=== PATIENT | male | born 1960 | race Caucasian/White ===

== ENCOUNTER → 2022-06-01 | Outpatient (CLI) | payer MEDICAID ==
--- NOTE | 2022-06-01 13:52 | CT ---
EXAMINATION TYPE: CT abdomen pelvis w con DATE OF EXAM: 06/01/2022 COMPARISON: None HISTORY: Hepatomegaly CT DLP: 1805 mGycm Automated exposure control for dose reduction was used. TECHNIQUE: Helical acquisition of images was performed from the lung bases through the pelvis. CONTRAST: Performed with Oral Contrast and with IV Contrast, patient injected with 70ml mL of Isovue 300. FINDINGS: The lung bases are clear. There is a moderate diffuse fatty liver but no gross enlargement or focal liver mass. There is a gallstone but there is no gallbladder wall distention, wall thickening or pericholecystic fluid. There is no biliary ductal dilatation. There is no focal mass within the spleen, pancreas or adrenal glands. The kidneys excrete contrast promptly and symmetrically and there is no solid renal mass or hydroneph rosis. There are no renal calcifications. Abdominal aorta is normal and there is no retroperitoneal adenopathy or hemorrhage. The caliber of the bowel loops are normal in caliber and there is no dilatation or obstruction. No in flammatory changes are identified in the bowel wall or mesentery. There is no free intraperitoneal air or fluid. There is no pelvic mass, free fluid, abscess or adenopathy. The prostate gland is mildly prominent. There are no focal lytic or blastic bone abnormalities. IMPRESSION: 1. Moderate diffuse fatty liver without gross enlargement. 2. Single small gallstone.
== END | disposition home or self-care (01) ==
LOC: RADCTMAIN 11:26
PROVIDERS: ATTEND Family Medicine
DX: R16.0 Hepatomegaly, not elsewhere classified (principal); K76.0 Fatty (change of) liver, not elsewhere classified; K80.20 Calculus of gallbladder without cholecystitis without obstruction
CPT/HCPCS: 74177; Q9967

== ENCOUNTER 2022-06-18 14:35 | Inpatient (IN) | payer MEDICAID ==
[2022-06-18 15:17] LABS: Basophils % (A) 0 %; Eosinophils # (A) 0.2 k/uL (0-0.7); Eosinophils % (A) 2 %; HCT 36.2 % (39.0-53.0); HGB 12.8 gm/dL (13.0-17.5); Lymphocytes # (A) 0.9 k/uL (1.0-4.8); Lymphocytes % (A) 7 %; MCH 34.9 pg (25.0-35.0); MCHC 35.3 g/dL (31.0-37.0); Mean Platelet Volume 8.2; Monocytes # (A) 0.7 k/uL (0-1.0); Monocytes % (A) 5 %; Neutrophils # (A) 10.3 k/uL (1.3-7.7); Neutrophils % (A) 85 %; Platelet Count 310 k/uL (150-450); Poikilocytosis Slight; RBC 3.66 m/uL (4.30-5.90); RDW 13.2 % (11.5-15.5); WBC 12.2 k/uL (3.8-10.6)
[2022-06-18 15:25] LABS: INR 0.9 (<1.2); Partial Thromboplastin Time 24.6 sec (22.0-30.0); Prothrombin Time 9.6 sec (9.0-12.0)
[2022-06-18 15:27] LABS: ALT 66 U/L (4-49); AST 41 U/L (17-59); African American GFR (CKD) >90 (>60 ml/min/1.73 sqM); Albumin 3.3 g/dL (3.5-5.0); Alkaline Phosphatase 176 U/L (38-126); Amylase 55 U/L (30-110); Anion Gap 9 mmol/L; Blood Urea Nitrogen 12 mg/dL (9-20); Calcium 10.1 mg/dL (8.4-10.2); Carbon Dioxide 25 mmol/L (22-30); Chloride 97 mmol/L (98-107); Glucose 104 mg/dL (74-99); Lipase 81 U/L (23-300); Non-African American GFR(CKD) >90 (>60 ml/min/1.73 sqM); Potassium 3.6 mmol/L (3.5-5.1); Sodium 131 mmol/L (137-145); Total Bilirubin 3.9 mg/dL (0.2-1.3); Total Protein 5.9 g/dL (6.3-8.2)
[2022-06-18] MEDS ORDERED: PIPERACILLIN-TAZOBACTAM 3.375 GM in SODIUM CHLORIDE 0.9% 100 ML IVPB STA (19:28)
[2022-06-18] MEDS ORDERED: SODIUM CHLORIDE 0.9% 1,000 ML IV ONE (19:28)
--- NOTE | 2022-06-18 19:31 | ED ---
Abdominal Pain HPI - General Chief Complaint: Abdominal Pain Stated Complaint: Liver Disease,Abd Pain,Shaky Time Seen by Provider: 06/18/22 19:20 Source: patient, RN notes reviewed Mode of arrival: ambulatory Limitations: no limitations - History of Present Illness Initial Comments: This is a pleasant 61-year-old male who presents with parents back complaining of right upper quadrant abdominal pain which is been present for about 1 week. Patient states he started having problems on May 20 when he noticed he was jaundice. Head previous liver problems related to drinking alcohol. Patient states he also used to use illegal drugs many years ago which caused liver problems. Patient states he started drinking again but then stopped and saw his regular physician. Patient also saw Dr. Sorenson, the automotive design layout drafter and had a computed tomography scan done in early May. Patient states after quitting drinking and going over the CT results with the doctor he was feeling great. However right upper quadrant pain started occurring about one week ago. States it likely is exacerbated by eating. No nausea or vomiting. No known fever. Patient was found to have a fever in triage. No headache, some chills, no changes in vision or hearing, no sore throat or difficulty with speech, no neck pain, no chest pain or shortness of breath,, no nausea or vomiting, no changes in urination or bowel movements, no numbness or tingling, no extremity pain, no skin rashes or lesions. Cats positive for jaundice Past medical, surgical, social, and family history reviewed. - Related Data Allergies Allergy/AdvReac Type Severity Reaction Status Date / Time No Known Allergies Allergy Verified 06/18/22 15:00 Review of Systems ROS Statement: Those systems with pertinent positive or pertinent negative responses have been documented in the HPI. ROS Other: All systems not noted in ROS Statement are negative. Past Medical History Past Medical History: Atrial Fibrillation, Asthma Additional Past Medical History / Comment(s): Liver disease History of Any Multi-Drug Resistant Organisms: None Reported Past Surgical History: No Surgical Hx Reported Past Psychological History: No Psychological Hx Reported Smoking Status: Never smoker Past Alcohol Use History: Daily Past Drug Use History: None Reported General Exam - General Exam Comments Initial Comments: Well-developed, well-nourished male in no significant distress. Found to be febrile in triage. Tenderness in the right upper quadrant, systemic jaundice noted. Limitations: no limitations General appearance: alert, in no apparent distress Head exam: Present: atraumatic, normocephalic, normal inspection Eye exam: Present: normal appearance, PERRL, EOMI, scleral icterus. Absent: conjunctival injection, periorbital swelling ENT exam: Present: normal exam, mucous membranes moist Neck exam: Present: normal inspection. Absent: tenderness, meningismus, lymphadenopathy Respiratory exam: Present: normal lung sounds bilaterally. Absent: respiratory distress, wheezes, rales, rhonchi, stridor Cardiovascular Exam: Present: regular rate, normal rhythm, normal heart sounds. Absent: systolic murmur, diastolic murmur, rubs, gallop, clicks GI/Abdominal exam: Present: distended, tenderness, guarding, normal bowel sounds. Absent: rebound, rigid Extremities exam: Present: normal inspection, full ROM, normal capillary refill. Absent: tenderness, pedal edema, joint swelling, calf tenderness Back exam: Present: normal inspection Neurological exam: Present: alert, oriented X3, CN II-XII intact Psychiatric exam: Present: normal affect, normal mood Skin exam: Present: warm, dry, intact, normal color. Absent: rash Course Vital Signs 06/18/22 06/18/22 14:57 20:18 Temperature 100 F H 97.8 F Pulse Rate 102 H 103 H Respiratory 22 16 Rate Blood Pressure 125/79 132/84 O2 Sat by Pulse 97 96 Oximetry - Reevaluation(s) Reevaluation #1: 06/18/22 20:31 Medical record is reviewed Symptoms unchanged, patient has right upper quadrant abdominal pain. We will order pain medication and admit the patient due to bilirubin of 3.9 and evidence of cholecystitis. Patient is informed of results and questions answered Patient in no distress - Consultations Consultation #1: Case discussed in detail with Dr. ferro from [facility] hospitalist group. Patient admitted to that service. Medical Decision Making - Medical Decision Making Any symptomology consistent with infectious process, suspect cholecystitis or possibly ascending cholangitis. 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 Patient has no evidence of hypotension or altered mental status. Patient did have an elevated white blood cell count with a bilirubin of 3.9. Going to order antibiotics and blood cultures. Ultrasound ordered. Plan for admission. Patient will be admitted for acute cholecystitis, most likely ascending cholangitis. Patient received Zosyn 3.375 g IV piggyback here in the ER. Patient met sepsis criteria. Patient reveals capillary refill less than 2 seconds. Adequate color. Peripheral pulses are 2+ out of 4. The case was discussed in detail with ED attending physician. Presentation, findings, treatment plan discussed in detail. Car Wrecker, Dr. Rolle - Lab Data Result diagrams: 06/18/22 15:10 06/18/22 15:10 Lab Results 06/18/22 06/18/22 06/18/22 Range/Units 15:10 15:10 15:10 WBC 12.2 H (3.8-10.6) k/uL RBC 3.66 L (4.30-5.90) m/uL Hgb 12.8 L (13.0-17.5) gm/dL Hct 36.2 L (39.0-53.0) % MCV 99.0 (80.0-100.0) fL MCH 34.9 (25.0-35.0) pg MCHC 35.3 (31.0-37.0) g/dL RDW 13.2 (11.5-15.5) % Plt Count 310 (150-450) k/uL MPV 8.2 Neutrophils % 85 % Lymphocytes % 7 % Monocytes % 5 % Eosinophils % 2 % Basophils % 0 % Neutrophils # 10.3 H (1.3-7.7) k/uL Lymphocytes # 0.9 L (1.0-4.8) k/uL Monocytes # 0.7 (0-1.0) k/uL Eosinophils # 0.2 (0-0.7) k/uL Basophils # 0.0 (0-0.2) k/uL Poikilocytosis Slight PT 9.6 (9.0-12.0) sec INR 0.9 (<1.2) APTT 24.6 (22.0-30.0) sec Sodium 131 L (137-145) mmol/L Potassium 3.6 (3.5-5.1) mmol/L Chloride 97 L (98-107) mmol/L Carbon Dioxide 25 (22-30) mmol/L Anion Gap 9 mmol/L BUN 12 (9-20) mg/dL Creatinine 0.81 (0.66-1.25) mg/dL Est GFR (CKD-EPI)AfAm >90 (>60 ml/min/1.73 sqM) Est GFR (CKD-EPI)NonAf >90 (>60 ml/min/1.73 sqM) Glucose 104 H (74-99) mg/dL Calcium 10.1 (8.4-10.2) mg/dL Total Bilirubin 3.9 H (0.2-1.3) mg/dL AST 41 (17-59) U/L ALT 66 H (4-49) U/L Alkaline Phosphatase 176 H (38-126) U/L Troponin I (0.000-0.034) ng/mL Total Protein 5.9 L (6.3-8.2) g/dL Albumin 3.3 L (3.5-5.0) g/dL Amylase 55 (30-110) U/L Lipase 81 (23-300) U/L 06/18/22 Range/Units 15:10 WBC (3.8-10.6) k/uL RBC (4.30-5.90) m/uL Hgb (13.0-17.5) gm/dL Hct (39.0-53.0) % MCV (80.0-100.0) fL MCH (25.0-35.0) pg MCHC (31.0-37.0) g/dL RDW (11.5-15.5) % Plt Count (150-450) k/uL MPV Neutrophils % % Lymphocytes % % Monocytes % % Eosinophils % % Basophils % % Neutrophils # (1.3-7.7) k/uL Lymphocytes # (1.0-4.8) k/uL Monocytes # (0-1.0) k/uL Eosinophils # (0-0.7) k/uL Basophils # (0-0.2) k/uL Poikilocytosis PT (9.0-12.0) sec INR (<1.2) APTT (22.0-30.0) sec Sodium (137-145) mmol/L Potassium (3.5-5.1) mmol/L Chloride (98-107) mmol/L Carbon Dioxide (22-30) mmol/L Anion Gap mmol/L BUN (9-20) mg/dL Creatinine (0.66-1.25) mg/dL Est GFR (CKD-EPI)AfAm (>60 ml/min/1.73 sqM) Est GFR (CKD-EPI)NonAf (>60 ml/min/1.73 sqM) Glucose (74-99) mg/dL Calcium (8.4-10.2) mg/dL Total Bilirubin (0.2-1.3) mg/dL AST (17-59) U/L ALT (4-49) U/L Alkaline Phosphatase (38-126) U/L Troponin I <0.012 (0.000-0.034) ng/mL Total Protein (6.3-8.2) g/dL Albumin (3.5-5.0) g/dL Amylase (30-110) U/L Lipase (23-300) U/L - EKG Data -: EKG Interpreted by Me EKG Comments: EKG done at 2101 and read by the ED attending physician reveals sinus tachycardia with occasional PVCs. Left axis deviationborderline, no acute ST or T-wave changes. Normal intervals. Disposition Clinical Impression: Ascending cholangitis, Acute cholecystitis due to biliary calculus, Sepsis Disposition: ADMITTED IP TO THIS HOSP Condition: Fair Is patient prescribed a controlled substance at d/c from ED?: No Referrals: Parminder Ross MD [Primary Care Provider] - 1-2 days Time of Disposition: 20:33 Decision to Admit Reason: Admit from EC Decision Time: 20:33
--- NOTE | 2022-06-18 20:12 | US ---
EXAMINATION TYPE: US gallbladder DATE OF EXAM: 06/18/2022 COMPARISON: CT: 06/01/22 CLINICAL HISTORY: Right upper quadrant abdominal pain. RUQ pain TECHNIQUE: Multiple sonographic images of the right upper quadrant are obtained. FINDINGS: EXAM MEASUREMENTS: Liver Length: 19.2 cm Gallbladder Wall: 0.25 cm CBD: 0.69 cm Right Kidney: 11.8 x 5.8 x 6.2 cm SUPERVISORY EXAMINER NOTES: Pancreas: Obscured by bowel gas Liver: Increased attenuation, decreased visualization of vessels suggestive of fatty infiltrate Gallbladder: Small stone seen near neck of GB measuring 1.0cm, sludge visualized, pericholecystic fl uid visualized, hydropic GB Evidence for sonographic Marin's sign: Yes CBD: Dilated, but limited due to bowel gas Right Kidney: wnl IMPRESSION: There is a gallstone. Mild gallbladder wall thickening and pericholecystic fluid suggestive of acute and chronic cholecystitis. Dilated gallbladder.
[2022-06-18] MEDS ORDERED: ONDANSETRON 4 MG/2 ML VIAL IVP STA (20:50)
[2022-06-18] MEDS ORDERED: MORPHINE SULFATE 4 MG/ML SYRINGE IV STA (20:50)
[2022-06-18] MEDS: SODIUM CHLORIDE 0.9% 1,000 ML IV SCH (21:07)
[2022-06-19] MEDS: MORPHINE SULFATE 4 MG/ML SYRINGE IVP PRN ×4 (02:36→21:34)
[2022-06-19] MEDS: PIPERACILLIN-TAZOBACTAM 3.375 GM in SODIUM CHLORIDE 0.9% 100 ML IVPB SCH ×3 (04:05→21:18)
[2022-06-19] MEDS: SODIUM CHLORIDE 0.9% 1,000 ML IV SCH ×4 (05:58→21:34)
[2022-06-19] MEDS ORDERED: XARELTO PO SCH (08:30)
[2022-06-19 09:22] LABS: Basophils % (A) 0 %; Eosinophils # (A) 0.1 k/uL (0-0.7); Eosinophils % (A) 1 %; HCT 33.6 % (39.0-53.0); HGB 11.7 gm/dL (13.0-17.5); Lymphocytes # (A) 0.9 k/uL (1.0-4.8); Lymphocytes % (A) 8 %; MCH 35.2 pg (25.0-35.0); MCHC 34.8 g/dL (31.0-37.0); MCV 101.3 fL (80.0-100.0); Mean Platelet Volume 7.9; Monocytes # (A) 0.7 k/uL (0-1.0); Monocytes % (A) 6 %; Neutrophils # (A) 9.2 k/uL (1.3-7.7); Neutrophils % (A) 83 %; Platelet Count 327 k/uL (150-450); Poikilocytosis Slight; RBC 3.32 m/uL (4.30-5.90); RDW 13.3 % (11.5-15.5)
[2022-06-19 09:31] LABS: ALT 51 U/L (4-49); AST 36 U/L (17-59); African American GFR (CKD) >90 (>60 ml/min/1.73 sqM); Albumin/Globulin Ratio 1.3; Alkaline Phosphatase 140 U/L (38-126); Anion Gap 8 mmol/L; Blood Urea Nitrogen 12 mg/dL (9-20); Carbon Dioxide 25 mmol/L (22-30); Chloride 100 mmol/L (98-107); Globulin 2.4 g/dL; Glucose 93 mg/dL (74-99); Non-African American GFR(CKD) >90 (>60 ml/min/1.73 sqM); Potassium 3.7 mmol/L (3.5-5.1); Sodium 133 mmol/L (137-145); Total Bilirubin 3.5 mg/dL (0.2-1.3); Total Protein 5.4 g/dL (6.3-8.2)
[2022-06-19] MEDS: carvediloL 12.5 MG TAB PO SCH ×2 (10:25→17:33)
[2022-06-19] MEDS: MULTIVITAMINS, THERA 1 EACH TAB PO SCH (10:25)
--- NOTE | 2022-06-19 11:12 | P.GSCN ---
History of Present Illness Consult date: 06/19/22 History of present illness: CHIEF COMPLAINT: Abdominal pain HISTORY OF PRESENT ILLNESS: This is a 61-year-old male who presented to the hospital with complaint of right upper quadrant abdominal pain since last . Patient reports that the pain started after he drank a cup of coffee. He denies any nausea or vomiting. He does have a known history of liver cirr hosis, with history of alcohol use and substance abuse with cocaine, heroin and meth. Patient reports earlier in May he was seen by the GI service due to being jaundice and liver failure. He patient reports that he had a total bilirubin of 15 at that time. He had a computed tomography scan of the abdomen on 06/01/2022 showing moderate diffuse fatty liver without gross enlargement. Single small gallstone. Gallbladder ultrasound from yesterday shows gallstone. Mild gallbladder wall thickening and pericholecystic fluids just of acute and chronic cholecystitis. Dilated gallbladder. Patient does have elevated liver enzymes and total bilirubin of 3.9. He did have a fever on admission with tachycardia and elevated white count. Patient does report his urine is dark. Stools are normal. Patient's past surgical history includes a umbilical hernia repair with mesh. He is on Xarelto with history of A. fib and PE 2 with DVT. Patient seen and examined with Dr. nelson PAST MEDICAL HISTORY: Liver cirrhosis, atrial fibrillation, asthma PAST SURGICAL HISTORY: Umbilical hernia repair with mesh MEDICATIONS: See below ALLERGIES: See below SOCIAL HISTORY: Past history of cocaine, heroin and meth. Patient reports 2 years since he last used drugs. Patient reports he drinks 8 beers a day. Stop drinking 05/20/2022 REVIEW OF SYSTEMS: CONSTITUTIONAL: Denies fever or chills. HEENT: Denies blurred vision, vision changes, or eye pain. Denies hemoptysis CARDIOVASCULAR: Denies chest pain or pressure. RESPIRATORY: No shortness of breath. GASTROINTESTINAL: See HPI for pertinent findings HEMATOLOGIC: Denies bleeding disorders. GENITOURINARY: Denies any blood in urine or increased urinary frequency. SKIN: Denies pruitis. Denies rash. PHYSICAL EXAM: VITAL SIGNS: Reviewed GENERAL: Well-developed in no acute distress. HEENT: No sclera icterus. Extraocular movements grossly intact. Moist buccal mucosa. Head is atraumatic, normocephalic. No nasal drainage. ABDOMEN: Soft. Mildly distended. Patient has diffuse tenderness but more pain in the right upper quadrant NEUROLOGIC: Alert and oriented. Cranial nerves II through XII grossly intact. Tremor LABORATORY DATA: WBC 12.2 down to 11 hgb 11.7 platelets 327 sodium is 133 potassium 3.7 BUN 12 creatinine 0.77 Total bilirubin 3.90-3.5 AST 36 ALT 66-51 alk phos 176-140 Lipase 81 amylase 55 IMAGING: Gallbladder ultrasound there is a small gallstone in the neck gallbladder, sludge visualized, pericholecystic fluid, hydropic gallbladder. Positive Marin sign. CBD dilated. ASSESSMENT: 1. Chronic cholecystitis 2. Elevated LFTs and total bilirubin. Concerns for possible choledocholithiasis 3. Right upper quadrant abdominal pain 4. History of alcohol abuse 5. History of liver cirrhosis PLAN: -Patient scheduled for laparoscopic cholecystectomy on 06/22/[address] nelson -Start low-fat diet -MRCP ordered to rule out common bile duct stone -Await further GI workup and recommendations -Agree with adding the CIWA protocol for alcohol -Continue antibiotics -Continue IV fluids -Continue supportive care Physician Script Coordinator note has been reviewed by physician. Signing provider agrees with the documented findings, assessment, and plan of care. Past Medical History Past Medical History: Atrial Fibrillation, Asthma Additional Past Medical History / Comment(s): Liver disease History of Any Multi-Drug Resistant Organisms: None Reported Past Surgical History: No Surgical Hx Reported Past Anesthesia/Blood Transfusion Reactions: No Reported Reaction Past Psychological History: No Psychological Hx Reported Smoking Status: Never smoker Past Alcohol Use History: Daily Past Drug Use History: None Reported Medications and Allergies Home Medications Medication Instructions Recorded Confirmed Type Multivitamins, Thera [Multivitamin 2 tab PO DAILY 06/18/22 06/18/22 History (formulary)] Rivaroxaban [Xarelto] 20 mg PO [id number] 06/19/22 06/19/22 History carvediloL [Coreg] 12.5 mg PO BID 06/19/22 06/19/22 History Allergies Allergy/AdvReac Type Severity Reaction Status Date / Time No Known Allergies Allergy Verified 06/18/22 21:10 Surgical - Exam Vital Signs Temp Pulse Resp BP Pulse Ox 100 F H 102 H 22 125/79 97 06/18/22 14:57 06/18/22 14:57 06/18/22 14:57 06/18/22 14:57 06/18/22 14:57 Results - Labs 06/19/22 08:47 06/19/22 08:47 Abnormal Lab Results - Last 24 Hours (Table) 06/18/22 06/18/22 Range/Units 15:10 15:10 WBC 12.2 H (3.8-10.6) k/uL RBC 3.66 L (4.30-5.90) m/uL Hgb 12.8 L (13.0-17.5) gm/dL Hct 36.2 L (39.0-53.0) % Neutrophils # 10.3 H (1.3-7.7) k/uL Lymphocytes # 0.9 L (1.0-4.8) k/uL Sodium 131 L (137-145) mmol/L Chloride 97 L (98-107) mmol/L Glucose 104 H (74-99) mg/dL Total Bilirubin 3.9 H (0.2-1.3) mg/dL ALT 66 H (4-49) U/L Alkaline Phosphatase 176 H (38-126) U/L Total Protein 5.9 L (6.3-8.2) g/dL Albumin 3.3 L (3.5-5.0) g/dL Diabetes panel 06/18/22 Range/Units 15:10 Sodium 131 L (137-145) mmol/L Potassium 3.6 (3.5-5.1) mmol/L Chloride 97 L (98-107) mmol/L Carbon Dioxide 25 (22-30) mmol/L BUN 12 (9-20) mg/dL Creatinine 0.81 (0.66-1.25) mg/dL Glucose 104 H (74-99) mg/dL Calcium 10.1 (8.4-10.2) mg/dL AST 41 (17-59) U/L ALT 66 H (4-49) U/L Alkaline Phosphatase 176 H (38-126) U/L Total Protein 5.9 L (6.3-8.2) g/dL Albumin 3.3 L (3.5-5.0) g/dL Calcium panel 06/18/22 Range/Units 15:10 Calcium 10.1 (8.4-10.2) mg/dL Albumin 3.3 L (3.5-5.0) g/dL Pituitary panel 06/18/22 Range/Units 15:10 Sodium 131 L (137-145) mmol/L Potassium 3.6 (3.5-5.1) mmol/L Chloride 97 L (98-107) mmol/L Carbon Dioxide 25 (22-30) mmol/L BUN 12 (9-20) mg/dL Creatinine 0.81 (0.66-1.25) mg/dL Glucose 104 H (74-99) mg/dL Calcium 10.1 (8.4-10.2) mg/dL Adrenal panel 06/18/22 Range/Units 15:10 Sodium 131 L (137-145) mmol/L Potassium 3.6 (3.5-5.1) mmol/L Chloride 97 L (98-107) mmol/L Carbon Dioxide 25 (22-30) mmol/L BUN 12 (9-20) mg/dL Creatinine 0.81 (0.66-1.25) mg/dL Glucose 104 H (74-99) mg/dL Calcium 10.1 (8.4-10.2) mg/dL Total Bilirubin 3.9 H (0.2-1.3) mg/dL AST 41 (17-59) U/L ALT 66 H (4-49) U/L Alkaline Phosphatase 176 H (38-126) U/L Total Protein 5.9 L (6.3-8.2) g/dL Albumin 3.3 L (3.5-5.0) g/dL
--- NOTE | 2022-06-19 11:34 | P.HPIM ---
History of Present Illness This is a pleasant 61 years old male with past medical history of atrial fibrillation on xarelto , asthma. Presents with right upper quadrant abdominal pain for a few days and jaundice for about one month, he was following up with his PCP for his liver disease for about one month ago. Now he presents with worsening pain in the right upper abdomen about 8-9/10 in severity, nonradiating. Associated with nausea which is mild but no vomiting, no diarrhea. Patient also was complaining of from the distal headache and lightheadedness but no dizziness or weakness or numbness. No blurred vision. No chest pain he he feels little short of breath and cough and make his pain worse. He denies any urinary symptoms. He is a smoker. He quit drinking alcohol about one month ago when he developed his liver disease and jaundice. Also he stopped cocaine and methamphetamine and heroin about 2 years and a half ago Patient has low-grade fever of 100 on admission. Mild leukocytosis of about 12,000, hemoglobin 11.7. Gallbladder ultrasound showing gallstones with mild gallbladder wall thickening and pericholecystic fluid suggestive of acute on chronic cholecystitis with dilated gallbladder Patient had CT of the abdomen done about the last month month ago on 06/01 showing moderate fatty liver without enlargement and single gallstone pt is also reports some blood in his urine and stool and last dose of xarelto was 3 days ago , and he wants to keep holding it for now, risk and benefits are explained Review of Systems Review of systems CONSTITUTIONAL: No fever, no malaise, no fatigue. HEENT: No recent visual problems or hearing problems. Denied any sore throat. CARDIOVASCULAR: No orthopnea, PND, no palpitations, no syncope. PULMONARY: No shortness of breath, no cough, no hemoptysis. GASTROINTESTINAL: No diarrhea, no vomiting, Normoactive bowel sounds. NEUROLOGICAL: No headaches, no weakness, no numbness. HEMATOLOGICAL: Denies any bleeding or petechiae. GENITOURINARY: Denies any burning micturition, frequency, or urgency. MUSCULOSKELETAL/RHEUMATOLOGICAL: Denies any joint pain, swelling, or any muscle pain. ENDOCRINE: Denies any polyuria or polydipsia. Past Medical History Past Medical History: Atrial Fibrillation, Asthma Additional Past Medical History / Comment(s): Liver disease History of Any Multi-Drug Resistant Organisms: None Reported Past Surgical History: No Surgical Hx Reported Past Anesthesia/Blood Transfusion Reactions: No Reported Reaction Past Psychological History: No Psychological Hx Reported Smoking Status: Never smoker Past Alcohol Use History: Daily Past Drug Use History: None Reported Medications and Allergies Home Medications Medication Instructions Recorded Confirmed Type Multivitamins, Thera [Multivitamin 2 tab PO DAILY 06/18/22 06/18/22 History (formulary)] Rivaroxaban [Xarelto] 20 mg PO PC-BRKFST 06/19/22 06/19/22 History carvediloL [Coreg] 12.5 mg PO BID 06/19/22 06/19/22 History Allergies Allergy/AdvReac Type Severity Reaction Status Date / Time No Known Allergies Allergy Verified 06/18/22 21:10 Physical Exam Vitals: Vital Signs Temp Pulse Pulse Resp BP BP Pulse Ox 06/19/22 10:00 98 17 06/19/22 08:00 98.9 F 65 17 113/72 95 06/19/22 02:00 99.3 F 62 16 105/70 93 L 06/18/22 21:49 98.2 F 102 H 20 135/77 97 06/18/22 21:29 98 17 137/87 95 06/18/22 20:18 97.8 F 103 H 16 132/84 96 06/18/22 14:57 100 F H 102 H 22 125/79 97 Intake and Output 06/18/22 06/19/22 06/19/22 22:59 06:59 14:59 Intake Total 880 Balance 880 Intake: Intake, IV Titration 880 Amount Piperacillin-Tazobactam 3 100 .375 gm In Sodium Chloride 0.9% 100 ml @ 25 mls/hr IVPB Q8H YADI Rx#: [id number] Sodium Chloride 0.9% 1, 780 000 ml @ 130 mls/hr IV . Q7H42M YADI Rx#:[id number] Oral 0 Other: Voiding Method Toilet # Voids 2 Weight 115.666 kg GENERAL: The patient is alert and oriented x3, not in any acute distress. Well developed, well nourished. HEENT: Pupils are round and equally reacting to light. EOMI. No scleral icterus. No conjunctival pallor. Normocephalic, atraumatic. No pharyngeal erythema. No thyromegaly. CARDIOVASCULAR: S1 and S2 present. No murmurs, rubs, or gallops. PULMONARY: Chest is clear to auscultation, no wheezing or crackles. -ABDOMEN: Soft, RUQ tenderness, nondistended, normoactive bowel sounds. No palpable organomegaly. MUSCULOSKELETAL: No joint swelling or deformity. EXTREMITIES: No cyanosis, clubbing, or pedal edema. NEUROLOGICAL: Gross neurological examination did not reveal any focal deficits. SKIN: No rashes. no petechiae. Results CBC & Chem 7: 06/19/22 08:47 06/19/22 08:47 Labs: Abnormal Lab Results - Last 24 Hours (Table) 06/18/22 06/18/22 06/19/22 Range/Units 15:10 15:10 08:47 WBC 12.2 H 11.0 H (3.8-10.6) k/uL RBC 3.66 L 3.32 L (4.30-5.90) m/uL Hgb 12.8 L 11.7 L (13.0-17.5) gm/dL Hct 36.2 L 33.6 L (39.0-53.0) % MCV 101.3 H (80.0-100.0) fL MCH 35.2 H (25.0-35.0) pg Neutrophils # 10.3 H 9.2 H (1.3-7.7) k/uL Lymphocytes # 0.9 L 0.9 L (1.0-4.8) k/uL Sodium 131 L (137-145) mmol/L Chloride 97 L (98-107) mmol/L Glucose 104 H (74-99) mg/dL Total Bilirubin 3.9 H (0.2-1.3) mg/dL ALT 66 H (4-49) U/L Alkaline Phosphatase 176 H (38-126) U/L Total Protein 5.9 L (6.3-8.2) g/dL Albumin 3.3 L (3.5-5.0) g/dL 06/19/22 Range/Units 08:47 WBC (3.8-10.6) k/uL RBC (4.30-5.90) m/uL Hgb (13.0-17.5) gm/dL Hct (39.0-53.0) % MCV (80.0-100.0) fL MCH (25.0-35.0) pg Neutrophils # (1.3-7.7) k/uL Lymphocytes # (1.0-4.8) k/uL Sodium 133 L (137-145) mmol/L Chloride (98-107) mmol/L Glucose (74-99) mg/dL Total Bilirubin 3.5 H (0.2-1.3) mg/dL ALT 51 H (4-49) U/L Alkaline Phosphatase 140 H (38-126) U/L Total Protein 5.4 L (6.3-8.2) g/dL Albumin 3.0 L (3.5-5.0) g/dL Thrombosis Risk Factor Assmnt - Choose All That Apply Each Factor Represents 1 point: Age 41-60 years Other Risk Factors: No Other congenital or acquired thrombophilia - If yes, enter type in comment: No Thrombosis Risk Factor Assessment Total Risk Factor Score: 1 Thrombosis Risk Factor Assessment Level: Low Risk Assessment and Plan Assessment: Acute on chronic cholecystitis Acute ascending cholangitis, mild patient reports of blood in stool and urine, follow-up urine analysis and FOBT Mild sepsis secondary to above with fever and leukocytosis Chronic atrial fibrillation on Xarelto at home (Anticoagulation on hold ) Asthma, not an active issue Remote history of drug abuse Possible alcohol use disorder about one month ago, not active problem Plan: continue with Zosyn Continue with normal saline at 1:30 milliliters per hour and follow-up blood culture Surgery team on the case recommended MRCP which is pending GI team consult Pain management Order occult blood in stool, ordered urine analysis Labs and medication were reviewed.. Continue same treatment. Continue with sym ptomatic treatment. Resume home medication. Monitor labs and vitals. DVT and GI prophylaxis. Further recommendations as per clinical course of the patient DVT prophylaxis: no for possible blood in stool and urine GI Prophylaxis: Ppi Prognosis is guarded
[2022-06-19] MEDS: PANTOPRAZOLE 40 MG/10 ML VIAL IVP SCH (12:01)
--- NOTE | 2022-06-19 12:08 | P.CONS ---
History of Present Illness - Reason for Consult Consult date: 06/19/22 Possible ascending cholangitis Requesting physician: Richard Francis - Chief Complaint Abdominal pain - History of Present Illness On is a pleasant 61-year-old male with the significant past history of drug abuse and alcohol abuse. Patient follows with Dr. Sorenson in the outpatient setting and has been recently diagnosed with alcoholic cirrhosis of the liver. Patient states he started having abdominal pain this past Saturday and progressively has gotten worse. It is in the mid epigastric and right upper quadrant region. Associated with nausea but no vomiting. Patient was admitted with a max temp of 100.0. He was started on Zosyn. He had ultrasound of the abdomen reporting gallstone. Mild gallbladder wall thickening and. Cholecystic fluid suggestive of acute and chronically cystitis. Dilated gallbladder. CBD 0.69 cm. Patient recently underwent a CT of the abdomen and pelvis that was started on 06/01/2022 as part of his workup with gastroenterology that showed moderate diffuse fatty liver without gross enlargement, single small gallstone with no gallbladder wall distention, wall thickening or. Cholecystic fluid. No biliary ductal dilation. Patient states his recent labs done outpatient his bili was as high as 15. There are no labs to compare in the computer at this time. On admission he was noted to have elevated bilirubin of 3.9 AST 41 ALT 66 alkaline phosphatase 176 amylase and lipase within normal limits. Patient also had leukocytosis on admission WBC of 12.2. Gen. surgery is on consultation, tentative plan possible cholecystectomy scheduled later this week. He shouldn't states he currently still has pain in the right upper quadrant, rates it a 7/8-10, currently no nausea or vomiting. He is currently afebrile. Denies any fevers or chills. Patient states bowel movements have been normal, last bowel movement yesterday. He states his last drink of alcohol was on 05/20/2022 however patient is noticeably shaky and appears to possibly be going through withdrawals at this time. Review of Systems REVIEW OF SYSTEMS: CARDIOPULMONARY: No chest pain or shortness of breath. Gastrointestinal: Right upper quadrant and mid epigastric pain. No nausea or vomiting. No hematemesis, coffee-ground emesis. No rectal bleeding, or melena. GENITOURINARY: No dysuria or hematuria. MUSCULOSKELETAL: Reports normal range of motion. SKIN: No rashes. No jaundice. ENDOCRINE: No chills, fevers. No excessive weight gain or loss. No polydipsia or polyuria. PSYCHIATRIC: Unremarkable. NEUROLOGY: No change in mental status. Denies dizziness, headache. ENT: Vision unremarkable. CONSTITUTIONAL: No recent weight loss. No fever, chills, night sweats. Past Medical History Past Medical History: Atrial Fibrillation, Asthma Additional Past Medical History / Comment(s): Liver disease History of Any Multi-Drug Resistant Organisms: None Reported Past Surgical History: No Surgical Hx Reported Past Anesthesia/Blood Transfusion Reactions: No Reported Reaction Past Psychological History: No Psychological Hx Reported Smoking Status: Never smoker Past Alcohol Use History: Daily Past Drug Use History: None Reported Medications and Allergies Home Medications Medication Instructions Recorded Confirmed Type Multivitamins, Thera [Multivitamin 2 tab PO DAILY 06/18/22 06/18/22 History (formulary)] Rivaroxaban [Xarelto] 20 mg PO PC-BRKFST 06/19/22 06/19/22 History carvediloL [Coreg] 12.5 mg PO BID 06/19/22 06/19/22 History Allergies Allergy/AdvReac Type Severity Reaction Status Date / Time No Known Allergies Allergy Verified 06/18/22 21:10 Physical Exam Vitals: Vital Signs Temp Pulse Pulse Resp BP BP Pulse Ox 06/19/22 08:00 98.9 F 98 17 113/72 95 06/19/22 02:00 99.3 F 62 16 105/70 93 L 06/18/22 21:49 98.2 F 102 H 20 135/77 97 06/18/22 21:29 98 17 137/87 95 06/18/22 20:18 97.8 F 103 H 16 132/84 96 06/18/22 14:57 100 F H 102 H 22 125/79 97 Intake and Output 06/18/22 06/19/22 06/19/22 22:59 06:59 14:59 Intake Total 880 Balance 880 Intake: Intake, IV Titration 880 Amount Piperacillin-Tazobactam 3 100 .375 gm In Sodium Chloride 0.9% 100 ml @ 25 mls/hr IVPB Q8H YADI Rx#: [id number] Sodium Chloride 0.9% 1, 780 000 ml @ 130 mls/hr IV . Q7H42M YADI Rx#:[id number] Oral 0 Other: # Voids 2 Weight 115.666 kg General appearance: The patient is alert, oriented, appears in no acute distress. Patient is very shaky, tremors appears possible withdrawal symptoms. HET: Head is normocephalic and atraumatic. Conjunctiva pink. Sclera anicteric. Neck: Supple without lymphadenopathy. Trachea midline. Heart: S1 S2. Regular rate and rhythm. Lungs: Clear to auscultation. Abdomen: Soft, epigastric and right upper quadrant tenderness to palpation. nondistended with bowel sounds. No guarding or rigidity. Skin: No rashes. Mild jaundice. Extremities: Normal skin color and turgor. No pedal edema. Neurological: No focal deficits. Alert and oriented x3. Patient is shaky/tremors Results CBC & Chem 7: 06/19/22 08:47 06/19/22 08:47 Labs: Abnormal Lab Results - Last 24 Hours (Table) 06/18/22 06/18/22 Range/Units 15:10 15:10 WBC 12.2 H (3.8-10.6) k/uL RBC 3.66 L (4.30-5.90) m/uL Hgb 12.8 L (13.0-17.5) gm/dL Hct 36.2 L (39.0-53.0) % Neutrophils # 10.3 H (1.3-7.7) k/uL Lymphocytes # 0.9 L (1.0-4.8) k/uL Sodium 131 L (137-145) mmol/L Chloride 97 L (98-107) mmol/L Glucose 104 H (74-99) mg/dL Total Bilirubin 3.9 H (0.2-1.3) mg/dL ALT 66 H (4-49) U/L Alkaline Phosphatase 176 H (38-126) U/L Total Protein 5.9 L (6.3-8.2) g/dL Albumin 3.3 L (3.5-5.0) g/dL US - abdomen: report reviewed (reporting gallstone. Mild gallbladder wall thickening and. Cholecystic fluid suggestive of acute and chronically cystitis. Dilated gallbladder) Assessment and Plan (1) Abdominal pain Narrative/Plan: 61-year-old male with a history of alcoholic cirrhosis of the liver who follows with Dr. Sorenson came in with severe right upper quadrant and epigastric pain. Patient was noted to have elevation in his total bilirubin as well as LFTs. However patient has known elevated LFTs related to underlying liver disease. Patient states recently blood work showed his total bilirubin as high as 15 so it is actually trending down. He had an ultrasound of the abdomen that reports gallbladder stone near the neck, mild collateral wall thickening and pericholecystic fluid suggestive of acute and chronic cholecystitis, dilated gallbladder. Unclear at this time if there is a component of cho ledocholithiasis, MRCP has been ordered. Continue with IV antibiotics, diet per recommendations from general surgery. Gen. surgery is following along for acute/chronic cholecystitis. Current Visit: Yes Status: Acute Code(s): R10.9 - UNSPECIFIED ABDOMINAL PAIN SNOMED Code(s): 92073074 (2) Cholecystitis Current Visit: Yes Status: Acute Code(s): K81.9 - CHOLECYSTITIS, UNSPECIFIED SNOMED Code(s): 17806830 (3) Alcoholic cirrhosis of liver Narrative/Plan: The patient has long standing history of drug abuse which he states he quit 2-2 and half. To go. Patient was a known heroin, crack cocaine, and methamphetamine user. Daily drinker for multiple years 8-9 beers. States he quit drinking at the beginning of May. Patient also recently underwent CT of the abdomen and pelvis as outpatient workup and did show changes within the liver consistent with fatty infiltrate/underlying hepatocellular disease. Elevation in LFTs certainly can be related to underlying liver disease. Current Visit: Yes Status: Acute Code(s): K70.30 - ALCOHOLIC CIRRHOSIS OF LIVER WITHOUT ASCITES SNOMED Code(s): 723038425 Plan: 1. Continue symptomatic and supportive care 2. Daily CBC, CMP 3. Acute hepatitis panel ordered 4. Agree with MRCP 5. Alcohol abstinence 6. Recommend CIWA PROTOCOL 7. Continue with recommendations from general surgery 8. Continue with antibiotics Thank you for this consultation, we will continue to follow closely. Dr. Tylor Sorenson I agree with the dictator's note, documented as a scribe by Rox Kingsley.
[2022-06-19 13:35] LABS: Amorphous Sediment,Urine Rare /hpf; Appearance,Urine Clear (Clear); Bilirubin,Urine 1+ (Negative); Blood,Urine Negative (Negative); Color,Urine Dark Yellow; Glucose,Urine (UA) Negative (Negative); Ketones,Urine Negative (Negative); Leukocyte Esterase,Urine Negative (Negative); Mucus,Urine Rare /hpf; Nitrite,Urine Negative (Negative); PH, Urine 5.5 (5.0-8.0); Protein,Urine 1+ (Negative); RBC,Urine 2 /hpf (0-5); Specific Gravity,Urine 1.021 (1.001-1.035); Squamous Epithelial Cell,Urine <1 /hpf (0-4); Urobilinogen,Urine <2.0 mg/dL (<2.0); WBC,Urine 1 /hpf (0-5)
--- NOTE | 2022-06-19 15:51 | MR ---
"EXAMINATION TYPE: MR MRCP DATE OF EXAM: 06/19/2022 COMPARISON: Gallbladder ultrasound June 18, [address] abdomen and pelvis June 01, 2022 HISTORY: RUQ abdominal pain, elevated LFTs and total bilirubin Standard multiplanar, multisequence MRI departmental protocol Multiplanar, multisequence images of the abdomen were acquired without contrast. Diffusion weighted i maging was performed. FINDINGS: Liver/gallbladder/pancreas/biliary system: The liver remains normal in size. Diffuse signal dropout o n in and out of phase imaging consistent with fatty infiltrative hepatocellular disease is redemonstr ated. No concerning solid or cystic mass or adjacent ascites. Pancreas shows no concerning solid or c ystic mass. Gallbladder is redemonstrated dilated with distended margins. MRCP images are suboptimal due to large body habitus and/or possibly technique. Common bile duct measures up to 7 mm in the mid segment corresponding with recent ultrasound seen best on T2 coronal weighted images. No definitive filling defect or CBD stone. Visualized small stone is now likely lies near the gallbladder neck axia l image 47 series 801. Abnormal gallbladder wall thickening and wall edema is redemonstrated. No int rahepatic biliary dilatation. No pancreatic ductal dilatation. Other: Lung bases remain clear. Both adrenal glands remain within normal limits. There are tiny thin- walled cyst upper pole of the left kidney. No hydronephrosis seen bilaterally. Numerous small scatter ed osseous hemangiomas are seen. No small or large bowel dilatation. IMPRESSION: Suboptimal study. Minimal extrahepatic biliary dilatation redemonstrated without intrahep atic biliary dilatation. No definitive CBD stone. MRI findings support ultrasound suspicion of acute cholecystitis due to lodged small stone near gallbladder neck. A Yellow level critical message alert has been initiated for Koko Ramos MD via the [employer] 0 | Critical Results System on 06/19/2022 3:49 PM. This message alert has been sent to Koko Ramos MD via the preferences provided by the clinician for the receipt of Radiology Critical Findings. [facility] ID [id number]."
[2022-06-20] MEDS: PIPERACILLIN-TAZOBACTAM 3.375 GM in SODIUM CHLORIDE 0.9% 100 ML IVPB SCH ×3 (03:58→21:10)
[2022-06-20] MEDS: carvediloL 12.5 MG TAB PO SCH ×2 (06:26→17:11)
[2022-06-20] MEDS: MULTIVITAMINS, THERA 1 EACH TAB PO SCH ×2 (07:46→08:05)
[2022-06-20] MEDS: THIAMINE 100 MG TAB PO SCH ×2 (07:46→08:05)
[2022-06-20 07:53] LABS: ALT 46 U/L (4-49); AST 31 U/L (17-59); African American GFR (CKD) >90 (>60 ml/min/1.73 sqM); Albumin 2.7 g/dL (3.5-5.0); Albumin/Globulin Ratio 1.1; Alkaline Phosphatase 137 U/L (38-126); Anion Gap 8 mmol/L; Blood Urea Nitrogen 14 mg/dL (9-20); Calcium 7.9 mg/dL (8.4-10.2); Carbon Dioxide 25 mmol/L (22-30); Chloride 99 mmol/L (98-107); Globulin 2.4 g/dL; Glucose 110 mg/dL (74-99); Non-African American GFR(CKD) >90 (>60 ml/min/1.73 sqM); Potassium 3.3 mmol/L (3.5-5.1); Sodium 132 mmol/L (137-145); Total Bilirubin 2.8 mg/dL (0.2-1.3); Total Protein 5.1 g/dL (6.3-8.2)
[2022-06-20 07:55] LABS: Basophils % (A) 0 %; Eosinophils # (A) 0.1 k/uL (0-0.7); Eosinophils % (A) 1 %; HCT 29.9 % (39.0-53.0); HGB 10.1 gm/dL (13.0-17.5); Lymphocytes # (A) 0.6 k/uL (1.0-4.8); Lymphocytes % (A) 6 %; MCH 33.9 pg (25.0-35.0); MCHC 33.9 g/dL (31.0-37.0); MCV 99.9 fL (80.0-100.0); Mean Platelet Volume 8.1; Monocytes # (A) 0.5 k/uL (0-1.0); Monocytes % (A) 5 %; Neutrophils # (A) 9.3 k/uL (1.3-7.7); Neutrophils % (A) 87 %; Platelet Count 309 k/uL (150-450); Poikilocytosis Slight; RDW 13.5 % (11.5-15.5); WBC 10.7 k/uL (3.8-10.6)
[2022-06-20] MEDS: MORPHINE SULFATE 4 MG/ML SYRINGE IVP PRN (07:55)
[2022-06-20] MEDS ORDERED: POTASSIUM CHLORIDE ER 20 MEQ TAB.ER PO STA (07:58)
[2022-06-20] MEDS: PANTOPRAZOLE 40 MG/10 ML VIAL IVP SCH (08:28)
[2022-06-20] MEDS: SODIUM CHLORIDE 0.9% 1,000 ML IV SCH ×2 (08:35→17:14)
[2022-06-20] MEDS ORDERED: LIDOCAINE 1%-EPI 1:100,000 20 ML VIAL SQ ONE (08:56)
[2022-06-20] MEDS ORDERED: ONDANSETRON 4 MG/2 ML VIAL ONE (09:12)
[2022-06-20] MEDS ORDERED: HEPARIN SODIUM,PORCINE/PF 5,000 UNIT/0.5 ML SYRINGE SQ ONE (09:13)
--- NOTE | 2022-06-20 09:13 | P.PN ---
Progress Note - Text Progress Note Date: 06/20/22 Patient's MRCP shows evidence of acute cholecystitis. Patient will undergo laparoscopic cholecystectomy today.
[2022-06-20] MEDS ORDERED: LACTATED RINGERS 1,000 ML IV ONE ×2 (09:17→11:05)
[2022-06-20] MEDS ORDERED: ONDANSETRON 4 MG/2 ML VIAL IVP ONE ×3 (09:17→10:48)
[2022-06-20] MEDS ORDERED: DEXAMETHASONE SOD PHOSPHATE 4 MG/ML 1 ML VIAL IVP ONE (09:17)
[2022-06-20] MEDS ORDERED: HEPARIN SODIUM,PORCINE 5,000 UNIT/ML 1 ML VIAL SQ ONE (09:17)
[2022-06-20] MEDS ORDERED: GLYCOPYRROLATE 0.2 MG/ML 2 ML VIAL ONE (09:29)
[2022-06-20] MEDS ORDERED: KETAMINE 10 MG/ML 20 ML VIAL ONE (09:29)
[2022-06-20] MEDS ORDERED: PROPOFOL 10 MG/ML 20 ML VIAL IV ONE (09:29)
[2022-06-20] MEDS ORDERED: SUCCINYLCHOLINE CHLORIDE 200 MG/10 ML VIAL IV ONE (09:29)
[2022-06-20] MEDS ORDERED: MIDAZOLAM 2 MG/2 ML VIAL ONE (09:29)
[2022-06-20] MEDS ORDERED: NEOSTIGMINE 1 MG/ML 10 ML VIAL ONE (09:29)
[2022-06-20] MEDS ORDERED: ROCURONIUM 10 MG/ML (5 ML VIAL) IV ONE (09:29)
[2022-06-20] MEDS ORDERED: LIDOCAINE 2% INJ 20 MG/ML (2 ML VIAL) ONE (09:29)
[2022-06-20] MEDS ORDERED: fentaNYL (PF) 50 MCG/ML 2 ML AMP ONE (09:29)
[2022-06-20] MEDS ORDERED: PHENYLEPHRINE-0.9% NACL SYG 1,000 MCG/10 ML SYRINGE ONE (09:29)
--- NOTE | 2022-06-20 10:26 | P.OP ---
Date of Procedure: 06/20/22 Preoperative Diagnosis: Cholecystitis Postoperative Diagnosis: Acute purulent cholecystitis Procedure(s) Performed: Laparoscopic cholecystectomy Anesthesia: DORINA Surgeon: Danyel Bolanos Estimated Blood Loss (ml): 10 Pathology: other (Gallbladder) Condition: stable Disposition: PACU Operative Findings: Acute cholecystitis with pus in gallbladder Description of Procedure: The patient was placed on the operating table. The patient received a general endotracheal tube anesthesia. The patients abdomen was prepped and draped in the usual sterile fashion. Through an infraumbilical stab incision, the fascia of the anterior abdominal wall was grasped with a pair of Kochers and then the Veress needle was placed in the peritoneal cavity. Position of the Veress needle was confirmed with positive drop test. The abdomen was then insufflated. After adequate insufflation, the 10 mm trocar was placed in the peritoneal cavity. Following this the laparoscope was placed in the peritoneal cavity. The patient was placed in the head-up, right side up position and then a 5 mm trocar was placed in the right lateral and right subcostal position under direct visualization. A 8 mm trocar was placed in the epigastric position. The gallbladder was hydropic. The gallbladder was aspirated there is enlargement possible the gallbladder. The gallbladder was grasped in the fundus and infundibulum. Traction on the gallbladder was placed in the lateral and the cephalad positions. The triangle of Calot was visualized.. The cystic duct was bluntly dissected until the union of the cystic duct and common bile duct was seen. A critical view of safety was achieved. The cystic duct was then divided and sealed with the Harmonic scissors. A PDS Endoloop was then placed throughout the cystic duct stump. The cystic artery divided and sealed with the Harmonic scissors. The gallbladder was then removed from the liver bed using Harmonic scissors. The gallbladder was then extracted through the epigastric port site. Operative field was checked for any bleeding spots and Harmonic scissors was used to coagulate the liver bed. The abdomen was irrigated. A ELLIE drains placed the gallbladder fossa and brought out through the right upper quadrant. The trocars were removed. The skin was closed using interrupted 3-0 Vicryl suture. Dermabond dressing were applied. The patient tolerated the procedure well.
[2022-06-20] MEDS ORDERED: HYDROmorphone 0.5 MG/0.5 ML SYRINGE IVP ONE ×2 (10:58→11:13)
--- NOTE | 2022-06-20 11:06 | P.PN ---
Subjective Progress Note Date: 06/20/22 Principal diagnosis: Abdominal pain This is a pleasant 61-year-old male with the significant past history of drug abuse and alcohol abuse. Patient follows with Dr. Sorenson in the outpatient setting and has been recently diagnosed with alcoholic cirrhosis of the liver. Patient states he started having abdominal pain this past Saturday and progressively has gotten worse. It is in the mid epigastric and right upper quadrant region. Associated with nausea but no vomiting. Patient was admitted with a max temp of 100.0. He was started on Zosyn. He had ultrasound of the abdomen reporting gallstone. Mild gallbladder wall thickening and. Cholecystic fluid suggestive of acute and chronically cystitis. Dilated gallbladder. CBD 0.69 cm. Patient recently underwent a CT of the abdomen and pelvis that was started on 06/01/2022 as part of his workup with gastroenterology that showed moderate diffuse fatty liver without gross enlargement, single small gallstone with no gallbladder wall distention, wall thickening or. Cholecystic fluid. No biliary ductal dilation. Patient states his recent labs done outpatient his bili was as high as 15. There are no labs to compare in the computer at this time. On admission he was noted to have elevated bilirubin of 3.9 AST 41 ALT 66 alkaline phosphatase 176 amylase and lipase within normal limits. Patient also had leukocytosis on admission WBC of 12.2. Gen. surgery is on consultation, tentative plan possible cholecystectomy scheduled later this week. He shouldn't states he currently still has pain in the right upper quadrant, rates it a 7/8-10, currently no nausea or vomiting. He is currently afebrile. Denies any fevers or chills. Patient states bowel movements have been normal, last bowel movement yesterday. He states his last drink of alcohol was on 05/20/2022 however patient is noticeably shaky and appears to possibly be going through withdrawals at this time. 06/20/2022: Patient seen and examined as a follow-up. Yesterday he underwent MRCP which reported as a suboptimal study. Minimal extrahepatic biliary dilation redemonstrated without intrahepatic biliary dilation. No definitive CBD stone. MRI findings support ultrasound suspicion for acute cholecystitis due to enlarged small stone near gallbladder neck. Patient went for surgery this morning and had a laparoscopic cholecystectomy performed. Patient is currently recovering. Today's labs WBC 10.7 hemoglobin 10 platelet count 308,000 total bilirubin 2.8 AST 31 ALT 46 alkaline phosphatase 137 Objective - Vital Signs Vital signs: Vital Signs Temp 99 F 06/20/22 10:28 Pulse 74 06/20/22 10:55 Resp 16 06/20/22 10:55 BP 105/70 06/20/22 10:55 Pulse Ox 98 06/20/22 10:55 FiO2 Intake & Output 06/19/22 06/20/22 06/20/22 18:59 06:59 18:59 Intake Total 1140 600 Output Total 15 Balance 1140 585 Intake: IV 600 Intake, IV Titration 1140 Amount Piperacillin-Tazobactam 3 100 .375 gm In Sodium Chloride 0.9% 100 ml @ 25 mls/hr IVPB Q8H [facility] Rx#: [id number] Sodium Chloride 0.9% 1, 1040 000 ml @ 130 mls/hr IV . Q7H42M [facility] Rx#:[id number] Output: Estimated Blood Loss 15 Other: Voiding Method Toilet Toilet # Voids 5 3 - Exam General appearance: The patient is alert, oriented, appears in no acute distress. HET: Head is normocephalic and atraumatic. Conjunctiva pink. Sclera anicteric. Neck: Supple without lymphadenopathy. Abdomen: Soft, surgical tenderness, nondistended. No guarding or rigidity. Extremities: Normal skin color and turgor. No pedal edema Skin: No rashes, no jaundice Neurological: No focal deficits. Alert and oriented. - Labs CBC & Chem 7: 06/20/22 07:00 06/20/22 07:00 Labs: Abnormal Lab Results - Last 24 Hours (Table) 06/19/22 06/20/22 06/20/22 Range/Units 11:30 07:00 07:00 WBC 10.7 H (3.8-10.6) k/uL RBC 3.00 L (4.30-5.90) m/uL Hgb 10.1 L (13.0-17.5) gm/dL Hct 29.9 L (39.0-53.0) % Neutrophils # 9.3 H (1.3-7.7) k/uL Lymphocytes # 0.6 L (1.0-4.8) k/uL Sodium 132 L (137-145) mmol/L Potassium 3.3 L (3.5-5.1) mmol/L Glucose 110 H (74-99) mg/dL Calcium 7.9 L (8.4-10.2) mg/dL Total Bilirubin 2.8 H (0.2-1.3) mg/dL Alkaline Phosphatase 137 H (38-126) U/L Total Protein 5.1 L (6.3-8.2) g/dL Albumin 2.7 L (3.5-5.0) g/dL Urine Protein 1+ H (Negative) Urine Bilirubin 1+ H (Negative) Amorphous Sediment Rare H (None) /hpf Urine Mucus Rare H (None) /hpf Microbiology - Last 24 Hours (Table) 06/18/22 20:32 Blood Culture - Preliminary Blood No Growth after 24 hours 06/18/22 20:15 Blood Culture - Preliminary Blood No Growth after 24 hours Assessment and Plan (1) Abdominal pain Narrative/Plan: 61-year-old male with a history of alcoholic cirrhosis of the liver who follows with Dr. Sorenson came in with severe right upper quadrant and epigastric pain. Patient was noted to have elevation in his total bilirubin as well as LFTs. However patient has known elevated LFTs related to underlying liver disease. Patient states recently blood work showed his total bilirubin as high as 15 so it is actually trending down. He had an ultrasound of the abdomen that reports gallbladder stone near the neck, mild collateral wall thickening and pericholecystic fluid suggestive of acute and chronic cholecystitis, dilated gallbladder. Unclear at this time if there is a component of choledocholithiasis, MRCP has been ordered. Continue with IV antibiotics, diet per recommendations from general surgery. Gen. surgery is following along for acute/chronic cholecystitis. Current Visit: Yes Status: Acute Code(s): R10.9 - UNSPECIFIED ABDOMINAL PAIN SNOMED Code(s): 11011811 (2) Cholecystitis Narrative/Plan: MRCP reported no intrahepatic biliary dilation, no CBD stone appreciated. Suspect acute cholecystitis. The patient underwent laparoscopic cholecystectomy today for acute cholecystitis, Current Visit: Yes Status: Acute Code(s): K81.9 - CHOLECYSTITIS, UNSPECIFIED SNOMED Code(s): 48320499 (3) Alcoholic cirrhosis of liver Narrative/Plan: The patient has long standing history of drug abuse which he states he quit 2-2 and half. To go. Patient was a known heroin, crack cocaine, and methamphetamine user. Daily drinker for multiple years 8-9 beers. States he quit drinking at the beginning of May. Patient also recently underwent CT of the abdomen and pelvis as outpatient workup and did show changes within the liver consistent with fatty infiltrate/underlying hepatocellular disease. Elevation in LFTs certainly can be related to underlying liver disease. Current Visit: Yes Status: Acute Code(s): K70.30 - ALCOHOLIC CIRRHOSIS OF LIVER WITHOUT ASCITES SNOMED Code(s): 538603012 Plan: 1. Continue symptomatic and supportive care 2. Daily CBC, CMP 3. Acute hepatitis panel ordered 4. Alcohol abstinence 5. Monitor for withdrawal symptoms 6. Continue with recommendations from general surgery 7. Continue with antibiotics 8. Diet per recommendations from general surgery Thank you for this consultation, we will continue to follow. Dr. Tylor Sorenson I agree with the dictator's note, documented as a scribe by Rox Kingsley.
[2022-06-20 11:08] LABS: Hepatitis A Antibody IgM Nonreactive (Nonreactive); Hepatitis B Core IgM Nonreactive (Nonreactive); Hepatitis B Surface Antigen Nonreactive (Nonreactive); Hepatitis C IgG Antibody Nonreactive (Nonreactive)
[2022-06-20] MEDS: HYDROmorphone 1 MG/ML 1 ML SYRINGE IVP PRN ×3 (13:53→21:09)
--- NOTE | 2022-06-20 23:06 | P.PN ---
Subjective This is a pleasant 61 years old male with past medical history of atrial fibrillation on xarelto , asthma. Presents with right upper quadrant abdominal pain for a few days and jaundice for about one month, he was following up with his PCP for his liver disease for about one month ago. Now he presents with worsening pain in the right upper abdomen about 8-9/10 in severity, nonradiating. Associated with nausea which is mild but no vomiting, no diarrhea. Patient also was complaining of from the distal headache and lightheadedness but no dizziness or weakness or numbness. No blurred vision. No chest pain he he feels little short of breath and cough and make his pain worse. He denies any urinary symptoms. He is a smoker. He quit drinking alcohol about one month ago when he developed his liver disease and jaundice. Also he stopped cocaine and methamphetamine and heroin about 2 years and a half ago Patient has low-grade fever of 100 on admission. Mild leukocytosis of about 12,000, hemoglobin 11.7. Gallbladder ultrasound showing gallstones with mild gallbladder wall thickening and pericholecystic fluid suggestive of acute on chronic cholecystitis with dilated gallbladder Patient had CT of the abdomen done about the last month month ago on 06/01 showing moderate fatty liver without enlargement and single gallstone pt is also reports some blood in his urine and stool and last dose of xarelto was 3 days ago , and he wants to keep holding it for now, risk and benefits are explained 06/20/2022 Patient with acute cholecystitis status post lap cholecystectomy with surgery team. Biopsies pending. He remains on IV Zosyn and IV fluid for possible sepsis and infection of the biliary tree. Vitals are staple WBC 10.7, hemoglobin 10.1, bilirubin is coming down to 0.8, liver enzymes slightly improved. Blood pressure is improved. No more fever today. Xarelto remains on hold until it cleared by surgery Objective - Vital Signs Vital signs: Vital Signs Temp 99 F 06/20/22 10:28 Pulse 76 06/20/22 11:10 Resp 16 06/20/22 11:10 BP 116/59 06/20/22 11:10 Pulse Ox 98 06/20/22 11:10 FiO2 Intake & Output 06/19/22 06/20/22 06/20/22 18:59 06:59 18:59 Intake Total 1140 950 Output Total 15 Balance 1140 935 Intake: IV 950 Intake, IV Titration 1140 Amount Piperacillin-Tazobactam 3 100 .375 gm In Sodium Chloride 0.9% 100 ml @ 25 mls/hr IVPB Q8H [facility] Rx#: [id number] Sodium Chloride 0.9% 1, 1040 000 ml @ 130 mls/hr IV . Q7H42M [facility] Rx#:[id number] Output: Estimated Blood Loss 15 Other: Voiding Method Toilet Toilet # Voids 5 3 - Exam GENERAL: The patient is alert and oriented x3, not in any acute distress. Well developed, well nourished. HEENT: Pupils are round and equally reacting to light. EOMI. No scleral icterus. No conjunctival pallor. Normocephalic, atraumatic. No pharyngeal erythema. No thyromegaly. CARDIOVASCULAR: S1 and S2 present. No murmurs, rubs, or gallops. PULMONARY: Chest is clear to auscultation, no wheezing or crackles. -ABDOMEN: Soft, RUQ tenderness, nondistended, normoactive bowel sounds. No palpable organomegaly. MUSCULOSKELETAL: No joint swelling or deformity. EXTREMITIES: No cyanosis, clubbing, or pedal edema. NEUROLOGICAL: Gross neurological examination did not reveal any focal deficits. SKIN: No rashes. no petechiae. - Labs CBC & Chem 7: 06/20/22 07:00 06/20/22 07:00 Labs: Abnormal Lab Results - Last 24 Hours (Table) 06/19/22 06/20/22 06/20/22 Range/Units 11:30 07:00 07:00 WBC 10.7 H (3.8-10.6) k/uL RBC 3.00 L (4.30-5.90) m/uL Hgb 10.1 L (13.0-17.5) gm/dL Hct 29.9 L (39.0-53.0) % Neutrophils # 9.3 H (1.3-7.7) k/uL Lymphocytes # 0.6 L (1.0-4.8) k/uL Sodium 132 L (137-145) mmol/L Potassium 3.3 L (3.5-5.1) mmol/L Glucose 110 H (74-99) mg/dL Calcium 7.9 L (8.4-10.2) mg/dL Total Bilirubin 2.8 H (0.2-1.3) mg/dL Alkaline Phosphatase 137 H (38-126) U/L Total Protein 5.1 L (6.3-8.2) g/dL Albumin 2.7 L (3.5-5.0) g/dL Urine Protein 1+ H (Negative) Urine Bilirubin 1+ H (Negative) Amorphous Sediment Rare H (None) /hpf Urine Mucus Rare H (None) /hpf Microbiology - Last 24 Hours (Table) 06/18/22 20:32 Blood Culture - Preliminary Blood No Growth after 24 hours 06/18/22 20:15 Blood Culture - Preliminary Blood No Growth after 24 hours Assessment and Plan Assessment: Acute on chronic cholecystitis, status post laparoscopic cholecystectomy. Acute ascending cholangitis, mild patient reports of blood in stool and urine, follow-up urine analysis and FOBT Mild sepsis secondary to above with fever and leukocytosis Chronic atrial fibrillation on Xarelto at home (Anticoagulation on hold ) Asthma, not an active issue Remote history of drug abuse Possible alcohol use disorder about one month ago, not active problem Plan: continue with Zosyn Continue with normal saline at 1:30 milliliters per hour and follow-up blood culture Surgery team on the case. Patient status post lap cholecystectomy, continue with postop care and fast diet for surgery team GI team consult Pain management Labs and medication were reviewed.. Continue same treatment. Continue with symptomatic treatment. Resume home medication. Monitor labs and vitals. DVT and GI prophylaxis. Further recommendations as per clinical course of the patient DVT prophylaxis: no for possible blood in stool and urine GI Prophylaxis: Ppi Prognosis is guarded
[2022-06-21] MEDS: HYDROmorphone 1 MG/ML 1 ML SYRINGE IVP PRN ×4 (00:51→21:47)
[2022-06-21] MEDS: SODIUM CHLORIDE 0.9% 1,000 ML IV SCH ×3 (04:06→16:58)
[2022-06-21] MEDS: PIPERACILLIN-TAZOBACTAM 3.375 GM in SODIUM CHLORIDE 0.9% 100 ML IVPB SCH ×3 (04:50→21:51)
[2022-06-21] MEDS: PANTOPRAZOLE 40 MG TABLET PO SCH (06:33)
[2022-06-21] MEDS: carvediloL 12.5 MG TAB PO SCH ×2 (06:34→17:28)
[2022-06-21 08:44] LABS: ALT 62 U/L (4-49); AST 53 U/L (17-59); African American GFR (CKD) >90 (>60 ml/min/1.73 sqM); Albumin 2.8 g/dL (3.5-5.0); Albumin/Globulin Ratio 1.2; Alkaline Phosphatase 132 U/L (38-126); Anion Gap 8 mmol/L; Blood Urea Nitrogen 13 mg/dL (9-20); Calcium 7.9 mg/dL (8.4-10.2); Carbon Dioxide 25 mmol/L (22-30); Chloride 97 mmol/L (98-107); Globulin 2.4 g/dL; Glucose 122 mg/dL (74-99); Magnesium 1.9 mg/dL (1.6-2.3); Non-African American GFR(CKD) >90 (>60 ml/min/1.73 sqM); Potassium 3.7 mmol/L (3.5-5.1); Sodium 130 mmol/L (137-145); Total Bilirubin 2.1 mg/dL (0.2-1.3); Total Protein 5.2 g/dL (6.3-8.2)
[2022-06-21] MEDS: THIAMINE 100 MG TAB PO SCH (10:10)
[2022-06-21] MEDS: MULTIVITAMINS, THERA 1 EACH TAB PO SCH (10:10)
[2022-06-21] MEDS: HYDROcodone/APAP 7.5-325MG 1 EACH TAB PO PRN ×2 (10:10→16:02)
[2022-06-21] MEDS: ENOXAPARIN 40 MG/0.4 ML SYRINGE SQ SCH (10:12)
[2022-06-21 10:51] LABS: Basophils # (A) 0.04 X 10*3/uL (0.00-0.10); Basophils % (A) 0.4 %; Eosinophils # (A) 0.08 X 10*3/uL (0.04-0.35); Eosinophils % (A) 0.7 %; HCT 30.4 % (39.6-50.0); HGB 10.3 g/dL (13.0-17.0); Immature Grans, Automated 2.4 %; Lymphocytes % (A) 11.9 %; MCH 34.7 pg (27.0-32.0); MCHC 33.9 g/dL (32.0-37.0); MCV 102.4 fL (80.0-97.0); Mean Platelet Volume 10.2 fL (9.5-12.2); Monocytes # (A) 0.82 X 10*3/uL (0.20-1.00); Monocytes % (A) 7.5 %; NRBC Per 100 WBC 0 /100 WBCS (0.0-0.0); Neutrophils % (A) 77.1 %; Platelet Count 363 X 10*3/uL (140-440); RBC 2.97 X 10*6/uL (4.40-5.60)
--- NOTE | 2022-06-21 11:21 | P.PN ---
Subjective Progress Note Date: 06/21/22 Principal diagnosis: Abdominal pain This is a pleasant 61-year-old male with the significant past history of drug abuse and alcohol abuse. Patient follows with Dr. Sorenson in the outpatient setting and has been recently diagnosed with alcoholic cirrhosis of the liver. Patient states he started having abdominal pain this past Saturday and progressively has gotten worse. It is in the mid epigastric and right upper quadrant region. Associated with nausea but no vomiting. Patient was admitted with a max temp of 100.0. He was started on Zosyn. He had ultrasound of the abdomen reporting gallstone. Mild gallbladder wall thickening and. Cholecystic fluid suggestive of acute and chronically cystitis. Dilated gallbladder. CBD 0.69 cm. Patient recently underwent a CT of the abdomen and pelvis that was started on 06/01/2022 as part of his workup with gastroenterology that showed moderate diffuse fatty liver without gross enlargement, single small gallstone with no gallbladder wall distention, wall thickening or. Cholecystic fluid. No biliary ductal dilation. Patient states his recent labs done outpatient his bili was as high as 15. There are no labs to compare in the computer at this time. On admission he was noted to have elevated bilirubin of 3.9 AST 41 ALT 66 alkaline phosphatase 176 amylase and lipase within normal limits. Patient also had leukocytosis on admission WBC of 12.2. Gen. surgery is on consultation, tentative plan possible cholecystectomy scheduled later this week. He shouldn't states he currently still has pain in the right upper quadrant, rates it a 7/8-10, currently no nausea or vomiting. He is currently afebrile. Denies any fevers or chills. Patient states bowel movements have been normal, last bowel movement yesterday. He states his last drink of alcohol was on 05/20/2022 however patient is noticeably shaky and appears to possibly be going through withdrawals at this time. 06/20/2022: Patient seen and examined as a follow-up. Yesterday he underwent MRCP which reported as a suboptimal study. Minimal extrahepatic biliary dilation redemonstrated without intrahepatic biliary dilation. No definitive CBD stone. MRI findings support ultrasound suspicion for acute cholecystitis due to enlarged small stone near gallbladder neck. Patient went for surgery this morning and had a laparoscopic cholecystectomy performed. Patient is currently recovering. Today's labs WBC 10.7 hemoglobin 10 platelet count 308,000 total bilirubin 2.8 AST 31 ALT 46 alkaline phosphatase 137 06/21/2022. Patient is seen and examined today has a follow-up. Yesterday he underwent cholecystectomy. He has a ELLIE drain in place. States abdominal pain has improved he just has surgical pain. He tolerated a regular diet this morning. No nausea or vomiting. WBC 10.9 hemoglobin 10.3 hematocrit 30 platelet count 363,000 total bilirubin 2.1 AST 53 ALT 62 alkaline phosphatase 132 hepatitis panel nonreactive. Objective - Vital Signs Vital signs: Vital Signs Temp 97.7 F 06/21/22 08:00 Pulse 77 06/21/22 08:00 Resp 18 06/21/22 08:00 BP 104/66 06/21/22 08:00 Pulse Ox 95 06/21/22 08:00 FiO2 Intake & Output 06/20/22 06/21/22 06/21/22 18:59 06:59 18:59 Intake Total 1750 Output Total 15 70 Balance 1735 -70 Intake: IV 1450 Oral 300 Output: Drainage 70 Abdomen 70 Estimated Blood Loss 15 Other: Voiding Method Toilet Toilet Toilet # Voids 3 2 - Exam General appearance: The patient is alert, oriented, appears in no acute distress . HET: Head is normocephalic and atraumatic. Conjunctiva pink. Sclera anicteric. Neck: Supple without lymphadenopathy. Abdomen: Soft, incision sites well approximated, ELLIE drain in place. Surgical tenderness, nondistended. No guarding or rigidity. Extremities: Normal skin color and turgor. No pedal edema Skin: No rashes, no jaundice Neurological: No focal deficits. Alert and oriented. - Labs CBC & Chem 7: 06/21/22 07:01 06/21/22 08:01 Labs: Abnormal Lab Results - Last 24 Hours (Table) 06/21/22 06/21/22 Range/Units 07:01 08:01 WBC 10.90 H (4.50-10.00) X 10*3/uL RBC 2.97 L (4.40-5.60) X 10*6/uL Hgb 10.3 L (13.0-17.0) g/dL Hct 30.4 L (39.6-50.0) % MCV 102.4 H (80.0-97.0) fL MCH 34.7 H (27.0-32.0) pg Immature Gran # 0.26 H (0.00-0.04) X 10*3/uL Neutrophils # 8.40 H (1.80-7.70) X 10*3/uL Sodium 130 L (137-145) mmol/L Chloride 97 L (98-107) mmol/L Glucose 122 H (74-99) mg/dL Calcium 7.9 L (8.4-10.2) mg/dL Total Bilirubin 2.1 H (0.2-1.3) mg/dL ALT 62 H (4-49) U/L Alkaline Phosphatase 132 H (38-126) U/L Total Protein 5.2 L (6.3-8.2) g/dL Albumin 2.8 L (3.5-5.0) g/dL Microbiology - Last 24 Hours (Table) 06/18/22 20:32 Blood Culture - Preliminary Blood No Growth after 48 hours 06/18/22 20:15 Blood Culture - Preliminary Blood No Growth after 48 hours Assessment and Plan (1) Abdominal pain Narrative/Plan: 61-year-old male with a history of alcoholic cirrhosis of the liver who follows with Dr. Sorenson came in with severe right upper quadrant and epigastric pain. Patient was noted to have elevation in his total bilirubin as well as LFTs. However patient has known elevated LFTs related to underlying liver disease. Patient states recently blood work showed his total bilirubin as high as 15 so it is actually trending down. He had an ultrasound of the abdomen that reports gallbladder stone near the neck, mild collateral wall thickening and pericholecystic fluid suggestive of acute and chronic cholecystitis, dilated gallbladder. Unclear at this time if there is a component of choledocholithi asis, MRCP has been ordered. Continue with IV antibiotics, diet per recommendations from general surgery. Gen. surgery is following along for acute/chronic cholecystitis. Current Visit: Yes Status: Acute Code(s): R10.9 - UNSPECIFIED ABDOMINAL PAIN SNOMED Code(s): 89631718 (2) Cholecystitis Narrative/Plan: MRCP reported no intrahepatic biliary dilation, no CBD stone appreciated. Suspect acute cholecystitis. The patient underwent laparoscopic cholecystectomy for acute cholecystitis, Current Visit: Yes Status: Acute Code(s): K81.9 - CHOLECYSTITIS, UNSPECIFIED SNOMED Code(s): 95864854 (3) Alcoholic cirrhosis of liver Narrative/Plan: The patient has long standing history of drug abuse which he states he quit 2-2 and half. To go. Patient was a known heroin, crack cocaine, and methamphetami ne user. Daily drinker for multiple years 8-9 beers. States he quit drinking at the beginning of May. Patient also recently underwent CT of the abdomen and pelvis as outpatient workup and did show changes within the liver consistent with fatty infiltrate/underlying hepatocellular disease. Elevation in LFTs certainly can be related to underlying liver disease. Current Visit: Yes Status: Acute Code(s): K70.30 - ALCOHOLIC CIRRHOSIS OF LIVER WITHOUT ASCITES SNOMED Code(s): 662060377 Plan: 1. Continue symptomatic and supportive care 2. Alcohol abstinence 3. Monitor for withdrawal symptoms 4. Continue with recommendations from general surgery 5. Diet per recommendations from general surgery 6. Patient to follow-up with Dr. Sorenson as previously scheduled for underlying alcoholic liver disease Thank you for this consultation, we will sign off at this time. Dr. Tylor Sorenson I agree with the dictator's note, documented as a scribe by Rox Kingsley.
--- NOTE | 2022-06-21 13:50 | P.PN ---
Subjective Progress Note Date: 06/21/22 CHIEF COMPLAINT: Cholecystitis HISTORY OF PRESENT ILLNESS: Patient is status post laparoscopic cholecystectomy postop day #1. Patient tolerated surgery well. He does report abdominal pain mostly at incision sites. Denies any flatus. Denies any nausea or vomiting. ELLIE drain 70 mL sanguinous output. Afebrile. WBC 10.90 Hgb 10.3 total bilirubin trending down from 2.8-2.1 AST 53 ALT 46 up to 62 alk phos 132 Patient seen and examined with Dr. nelson PHYSICAL EXAM: VITAL SIGNS: Reviewed. GENERAL: Well-developed in no acute distress. HEENT: No sclera icterus. Extraocular movements grossly intact. Moist buccal mucosa. Head is atraumatic, normocephalic. ABDOMEN: Soft. Nondistended. Incision sites clean dry and intact NEUROLOGIC: Alert and oriented. Cranial nerves II through XII grossly intact. ASSESSMENT: 1. Acute purulent cholecystitis status post laparoscopic cholecystectomy PLAN: -Continue to monitor patient -Continue IV antibiotics -Recheck labs in a.m. 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 Signing provider agrees with the documented findings, assessment, and plan of care. Objective - Vital Signs Vital signs: Vital Signs Temp 97.7 F 06/21/22 08:00 Pulse 77 06/21/22 08:00 Resp 18 06/21/22 08:00 BP 104/66 06/21/22 08:00 Pulse Ox 95 06/21/22 08:00 FiO2 Intake & Output 06/20/22 06/21/22 06/21/22 18:59 06:59 18:59 Intake Total 1750 Output Total 15 70 Balance 1735 -70 Intake: IV 1450 Oral 300 Output: Drainage 70 Abdomen 70 Estimated Blood Loss 15 Other: Voiding Method Toilet Toilet Toilet # Voids 3 2 - Labs CBC & Chem 7: 06/21/22 07:01 06/21/22 08:01 Labs: Abnormal Lab Results - Last 24 Hours (Table) 06/21/22 06/21/22 Range/Units 07:01 08:01 WBC 10.90 H (4.50-10.00) X 10*3/uL RBC 2.97 L (4.40-5.60) X 10*6/uL Hgb 10.3 L (13.0-17.0) g/dL Hct 30.4 L (39.6-50.0) % MCV 102.4 H (80.0-97.0) fL MCH 34.7 H (27.0-32.0) pg Immature Gran # 0.26 H (0.00-0.04) X 10*3/uL Neutrophils # 8.40 H (1.80-7.70) X 10*3/uL Sodium 130 L (137-145) mmol/L Chloride 97 L (98-107) mmol/L Glucose 122 H (74-99) mg/dL Calcium 7.9 L (8.4-10.2) mg/dL Total Bilirubin 2.1 H (0.2-1.3) mg/dL ALT 62 H (4-49) U/L Alkaline Phosphatase 132 H (38-126) U/L Total Protein 5.2 L (6.3-8.2) g/dL Albumin 2.8 L (3.5-5.0) g/dL Microbiology - Last 24 Hours (Table) 06/18/22 20:32 Blood Culture - Preliminary Blood No Growth after 48 hours 06/18/22 20:15 Blood Culture - Preliminary Blood No Growth after 48 hours
[2022-06-22] MEDS: SODIUM CHLORIDE 0.9% 1,000 ML IV SCH (03:00)
[2022-06-22] MEDS: PIPERACILLIN-TAZOBACTAM 3.375 GM in SODIUM CHLORIDE 0.9% 100 ML IVPB SCH ×3 (05:56→20:00)
[2022-06-22] MEDS: HYDROmorphone 1 MG/ML 1 ML SYRINGE IVP PRN ×4 (06:21→22:15)
[2022-06-22] MEDS: carvediloL 12.5 MG TAB PO SCH ×2 (06:22→17:50)
[2022-06-22] MEDS: PANTOPRAZOLE 40 MG TABLET PO SCH (06:22)
[2022-06-22] MEDS: MULTIVITAMINS, THERA 1 EACH TAB PO SCH (08:57)
[2022-06-22] MEDS: HYDROcodone/APAP 7.5-325MG 1 EACH TAB PO PRN (08:57)
[2022-06-22] MEDS: THIAMINE 100 MG TAB PO SCH (08:57)
[2022-06-22] MEDS: ENOXAPARIN 40 MG/0.4 ML SYRINGE SQ SCH (08:59)
[2022-06-22 11:00] LABS: Basophils # (A) 0.11 X 10*3/uL (0.00-0.10); Basophils % (A) 0.9 %; Eosinophils # (A) 0.19 X 10*3/uL (0.04-0.35); Eosinophils % (A) 1.6 %; Immature Grans, Automated 4.6 %; Lymphocytes % (A) 10.1 %; MCH 33.9 pg (27.0-32.0); MCHC 33.3 g/dL (32.0-37.0); MCV 101.7 fL (80.0-97.0); Mean Platelet Volume 9.7 fL (9.5-12.2); Monocytes # (A) 0.97 X 10*3/uL (0.20-1.00); Monocytes % (A) 8.2 %; NRBC Per 100 WBC 0 /100 WBCS (0.0-0.0); Neutrophils # (A) 8.84 X 10*3/uL (1.80-7.70); Neutrophils % (A) 74.6 %; Platelet Count 395 X 10*3/uL (140-440); RBC 2.95 X 10*6/uL (4.40-5.60); RDW 12.9 % (11.5-14.5); WBC 11.86 X 10*3/uL (4.50-10.00)
[2022-06-22 11:14] LABS: African American GFR (CKD) 127.6 (60.0-200.0); Albumin 2.6 g/dL (3.8-4.9); Albumin/Globulin Ratio 1.24 (1.60-3.17); Anion Gap 9.7 mmol/L (10.00-18.00); Blood Urea Nitrogen 11.4 mg/dL (9.0-27.0); Calcium 7.9 mg/dL (8.7-10.3); Carbon Dioxide 23.3 mmol/L (20.0-27.5); Globulin 2.1 g/dL (1.6-3.3); Non-African American GFR(CKD) 110.1 (60.0-200.0); Potassium 3.5 mmol/L (3.5-5.5); Total Bilirubin 1.7 mg/dL (0.30-1.20); Total Protein 4.7 g/dL (6.2-8.2)
--- NOTE | 2022-06-22 11:55 | P.PN ---
Subjective Progress Note Date: 06/22/22 CHIEF COMPLAINT: Cholecystitis HISTORY OF PRESENT ILLNESS: Patient is status post laparoscopic cholecystectomy postop day #2. Patient tolerated surgery well. Patient reports his pain is controlled. He is tolerating a regular diet. Denies any nausea or vomiting. He did have a bowel movement and flatus. Afebrile. ELLIE drain with 60 mL serosanguineous output. WBC is up from 10.9-11.86 Hgb 10 sodium 134 potassium is 3.5 creatinine 0.6 total bilirubin is down from 2.1-1.7 AST is 30 ALT 62 down to 48 and alk phos 132 down to 118 Patient seen and examined with Dr. nelson PHYSICAL EXAM: VITAL SIGNS: Reviewed. GENERAL: Well-developed in no acute distress. ABDOMEN: Soft. Nondistended. Incision sites clean dry and intact NEUROLOGIC: Alert and oriented. Cranial nerves II through XII grossly intact. Tremors ASSESSMENT: 1. Acute purulent cholecystitis status post laparoscopic cholecystectomy 2. History of alcohol abuse PLAN: -Anticipate discharge over the weekend -Recommend to continue IV antibiotics -Hep-Lock IV fluids -Recommend oral antibiotic at discharge -Continue a low-fat diet -ELLIE drain can be discontinued prior to discharge -Continue supportive care -Encouraged patient to ambulate -Encouraged patient to use incentive spirometer -Continue to monitor for alcohol withdrawal symptoms Physician Contractor [employer] note has been reviewed by physician. Signing provider agrees with the documented findings, assessment, and plan of care. Objective - Vital Signs Vital signs: Vital Signs Temp 98.1 F 06/22/22 07:50 Pulse 81 06/22/22 07:50 Resp 16 06/22/22 10:50 BP 103/64 06/22/22 07:50 Pulse Ox 95 06/22/22 07:50 FiO2 Intake & Output 06/21/22 06/22/22 06/22/22 18:59 06:59 18:59 Intake Total 400 Output Total 60 Balance 340 Intake: Oral 400 Output: Drainage 60 Abdomen 60 Other: Voiding Method Toilet Toilet Toilet # Voids 2 - Labs CBC & Chem 7: 06/22/22 06:54 06/22/22 06:54 Labs: Abnormal Lab Results - Last 24 Hours (Table) 06/22/22 06/22/22 Range/Units 06:54 06:54 WBC 11.86 H (4.50-10.00) X 10*3/uL RBC 2.95 L (4.40-5.60) X 10*6/uL Hgb 10.0 L (13.0-17.0) g/dL Hct 30.0 L (39.6-50.0) % MCV 101.7 H (80.0-97.0) fL MCH 33.9 H (27.0-32.0) pg Immature Gran # 0.55 H (0.00-0.04) X 10*3/uL Neutrophils # 8.84 H (1.80-7.70) X 10*3/uL Basophils # 0.11 H (0.00-0.10) X 10*3/uL Sodium 134 L (135-145) mmol/L Anion Gap 9.70 L (10.00-18.00) mmol/L Calcium 7.9 L (8.7-10.3) mg/dL Total Bilirubin 1.70 H (0.30-1.20) mg/dL Total Protein 4.7 L (6.2-8.2) g/dL Albumin 2.6 L (3.8-4.9) g/dL Albumin/Globulin Ratio 1.24 L (1.60-3.17) g/dL Microbiology - Last 24 Hours (Table) 06/18/22 20:15 Blood Culture - Preliminary Blood No Growth after 72 hours 06/18/22 20:32 Blood Culture - Preliminary Blood No Growth after 72 hours
[2022-06-22] MEDS ORDERED: LORazepam 1 MG TAB PO PRN ×2 (12:58)
[2022-06-22] MEDS: LORazepam 1 MG TAB PO PRN ×2 (13:57→22:15)
[2022-06-22] MEDS: FOLIC ACID 1 MG TAB PO SCH (13:58)
[2022-06-23] MEDS: carvediloL 12.5 MG TAB PO SCH ×2 (09:24→18:07)
[2022-06-23] MEDS: PIPERACILLIN-TAZOBACTAM 3.375 GM in SODIUM CHLORIDE 0.9% 100 ML IVPB SCH ×3 (09:24→20:58)
[2022-06-23] MEDS: THIAMINE 100 MG TAB PO SCH (09:25)
[2022-06-23] MEDS: MULTIVITAMINS, THERA 1 EACH TAB PO SCH (09:25)
[2022-06-23] MEDS: ENOXAPARIN 40 MG/0.4 ML SYRINGE SQ SCH (09:25)
[2022-06-23] MEDS: PANTOPRAZOLE 40 MG TABLET PO SCH (09:25)
[2022-06-23] MEDS: FOLIC ACID 1 MG TAB PO SCH (09:25)
[2022-06-23] MEDS: HYDROcodone/APAP 7.5-325MG 1 EACH TAB PO PRN ×2 (11:23→18:09)
--- NOTE | 2022-06-23 12:39 | P.PN ---
Subjective Progress Note Date: 06/23/22 Principal diagnosis: Cholecystitis Patient complains of some abdominal bloating. Says his pain is gradually improving. He did have 2 small bowel movements. ELLIE drain is serous he is afebrile. Objective - Vital Signs Vital signs: Vital Signs Temp 98.2 F 06/23/22 09:33 Pulse 82 06/23/22 09:33 Resp 19 06/23/22 09:33 BP 129/84 06/23/22 09:33 Pulse Ox 95 06/23/22 09:33 FiO2 Intake & Output 06/22/22 06/23/22 06/23/22 18:59 06:59 18:59 Output Total 20 Balance -20 Output: Drainage 20 Abdomen 20 Other: Voiding Method Toilet Toilet # Voids 3 1 # Bowel Movements 1 - Exam Abdomen: Soft, mild distention, mild tenderness, incisions clean and dry, ELLIE drain in place - Labs CBC & Chem 7: 06/22/22 06:54 06/22/22 06:54 Labs: Microbiology - Last 24 Hours (Table) 06/18/22 20:32 Blood Culture - Preliminary Blood No Growth after 96 hours 06/18/22 20:15 Blood Culture - Preliminary Blood No Growth after 96 hours Assessment and Plan (1) Acute cholecystitis due to biliary calculus Narrative/Plan: Patient doing somewhat better today. Keep drain in place for now. Ambulate. Continue diet. Current Visit: Yes Status: Acute Code(s): K80.00 - CALCULUS OF GALLBLADDER W ACUTE CHOLECYST W/O OBSTRUCTION SNOMED Code(s): 76696065043074
[2022-06-23 14:11] VITALS: RESP 18
[2022-06-23] MEDS: LORazepam 0.5 MG TAB PO PRN ×2 (14:17→20:58)
[2022-06-23] MEDS: HYDROmorphone 1 MG/ML 1 ML SYRINGE IVP PRN (21:47)
[2022-06-24 01:35] VITALS: PULSE 82; TEMP 97.8
[2022-06-24] MEDS: PIPERACILLIN-TAZOBACTAM 3.375 GM in SODIUM CHLORIDE 0.9% 100 ML IVPB SCH ×2 (03:38→13:20)
[2022-06-24] MEDS: HYDROmorphone 1 MG/ML 1 ML SYRINGE IVP PRN (03:44)
[2022-06-24] MEDS: carvediloL 12.5 MG TAB PO SCH (06:52)
[2022-06-24] MEDS: PANTOPRAZOLE 40 MG TABLET PO SCH (06:52)
[2022-06-24 06:57] VITALS: BP 131/81
[2022-06-24] MEDS: MULTIVITAMINS, THERA 1 EACH TAB PO SCH (08:40)
[2022-06-24] MEDS: THIAMINE 100 MG TAB PO SCH (08:40)
[2022-06-24] MEDS: FOLIC ACID 1 MG TAB PO SCH (08:40)
[2022-06-24] MEDS: ENOXAPARIN 40 MG/0.4 ML SYRINGE SQ SCH (08:40)
[2022-06-24] MEDS: HYDROcodone/APAP 7.5-325MG 1 EACH TAB PO PRN (09:02)
--- NOTE | 2022-06-24 09:49 | P.PN ---
Subjective Progress Note Date: 06/24/22 Principal diagnosis: Cholecystitis Patient feels better today. Says his abdomen is less bloated. ELLIE remains serous in color. Says his pain is improved. He would like to go home. Objective - Vital Signs Vital signs: Vital Signs Temp 97.8 F 06/24/22 06:57 Pulse 82 06/24/22 06:57 Resp 18 06/24/22 06:57 BP 131/81 06/24/22 06:57 Pulse Ox 96 06/24/22 06:57 FiO2 Intake & Output 06/23/22 06/24/22 06/24/22 19:59 06:59 18:59 Output Total Balance Output: Drainage Abdomen Other: Voiding Method # Voids # Bowel Movements - Exam Abdomen: Soft, mild distention, mild tenderness, ELLIE in place, incisions clean and dry - Labs CBC & Chem 7: 06/22/22 06:54 06/22/22 06:54 Labs: Microbiology - Last 24 Hours (Table) 06/18/22 20:32 Blood Culture - Preliminary Blood No Growth after 120 hours 06/18/22 20:15 Blood Culture - Preliminary Blood No Growth after 120 hours Assessment and Plan (1) Acute cholecystitis due to biliary calculus Narrative/Plan: Patient doing better today. May discharge from a surgical standpoint. If discharged may remove ELLIE drain. Follow-up with Dr. Bolanos postdischarge. Current Visit: Yes Status: Acute Code(s): K80.00 - CALCULUS OF GALLBLADDER W ACUTE CHOLECYST W/O OBSTRUCTION SNOMED Code(s): 86088767457091
[2022-06-24 11:50] LABS: African American GFR (CKD) 128.5 (60.0-200.0); Albumin 2.5 g/dL (3.8-4.9); Albumin/Globulin Ratio 1.32 (1.60-3.17); Anion Gap 8.7 mmol/L (10.00-18.00); BUN/Creat Ratio 10.14 Ratio (12.00-20.00); Calcium 8.1 mg/dL (8.7-10.3); Carbon Dioxide 25.4 mmol/L (20.0-27.5); Globulin 1.9 g/dL (1.6-3.3); Non-African American GFR(CKD) 110.9 (60.0-200.0); Potassium 3.4 mmol/L (3.5-5.5); Total Bilirubin 1.3 mg/dL (0.30-1.20); Total Protein 4.4 g/dL (6.2-8.2)
[2022-06-24 12:35] LABS: Basophils # (M) 0 X 10*3/uL (0.00-0.10); Eosinophils # (M) 0.26 X 10*3/uL (0.04-0.35); HCT 31.3 % (39.6-50.0); HGB 10.4 g/dL (13.0-17.0); Lymphocytes # (M) 0.38 X 10*3/uL (0.90-5.00); MCH 33.9 pg (27.0-32.0); MCHC 33.2 g/dL (32.0-37.0); Mean Platelet Volume 9.2 fL (9.5-12.2); Metamyelocytes % 1 % (0-0); Monocytes # (M) 0.51 X 10*3/uL (0.20-1.00); Myelocytes % 3 % (0-0); NRBC Per 100 WBC 0 /100 WBCS (0.0-0.0); Neutrophils # (M) 11.12 X 10*3/uL (2.00-8.90); Neutrophils % (M) 87 %; Platelet Count 455 X 10*3/uL (140-440); RBC 3.07 X 10*6/uL (4.40-5.60); RDW 13.1 % (11.5-14.5); WBC 12.78 X 10*3/uL (4.50-10.00)
[2022-06-24] MEDS ORDERED: POTASSIUM CHLORIDE ER 20 MEQ TAB.ER PO STA (13:23)
== END 2022-06-24 16:20 | disposition home or self-care (01) | DRG 854 ==
LOC: EC 14:35 → 4SSUR 20:58
PROVIDERS: ADMIT Internal Medicine; ATTEND Internal Medicine
PROC: 0FT44ZZ Resection of Gallbladder, Percutaneous Endoscopic Approach (ICD-10-PCS; principal; 2022-06-20 10:55)
DX: A41.9 Sepsis, unspecified organism (principal); I48.20 Chronic atrial fibrillation, unspecified; K80.12 Calculus of gallbladder with acute and chronic cholecystitis without obstruction; K83.09 Other cholangitis; K70.30 Alcoholic cirrhosis of liver without ascites; F14.11 Cocaine abuse, in remission; F11.11 Opioid abuse, in remission; F15.11 Other stimulant abuse, in remission; Z28.310 Unvaccinated for COVID-19; K76.0 Fatty (change of) liver, not elsewhere classified; J45.909 Unspecified asthma, uncomplicated; Z79.01 Long term (current) use of anticoagulants; Z79.899 Other long term (current) drug therapy
CPT/HCPCS: 36415; 74181; 76705; 80053; 80074; 81001; 82150; 83690; 83735; 84484; 85025; 85610; 85730; 87040; 88304; 93005; 94760; 96365; 96375; 99284

== ENCOUNTER 2022-12-28 16:26 | Inpatient (IN) | payer MEDICAID ==
--- NOTE | 2022-12-28 17:01 | ED ---
General Adult HPI - General Chief complaint: Shortness of Breath Stated complaint: SOB/swelling Time Seen by Provider: 12/28/22 16:39 Source: patient, RN notes reviewed Mode of arrival: ambulatory Limitations: no limitations - History of Present Illness Initial comments: 62-year-old male with a past medical history significant for EtOH abuse and liver failure presents to the emergency department with a chief complaint of bilateral leg edema. Patient reports worsening swelling in his legs and feet for the last 3 weeks. He reports worsening over the last week. He was seen at Dr. Ross's office prior to arrival who did lab work. He rep orts that he wanted to be evaluated in the emergency department as he is getting worsening symptoms of shortness of breath. He denies any fever, fatigue, cough, chest pain, abdominal pain, nausea, vomiting, diarrhea. Denies recent alcohol use. - Related Data Home Medications Medication Instructions Recorded Confirmed carvediloL [Coreg] 12.5 mg PO BID 06/19/22 12/28/22 Furosemide [Lasix] 40 mg PO DAILY 12/28/22 12/28/22 Multivit-Min/FA/Lycopen/Lutein 1 tab PO DAILY 12/28/22 12/28/22 [Centrum Silver Men Tablet] Xarelto (Unknown Dose) 1 tab PO DAILY 12/28/22 12/28/22 Allergies Allergy/AdvReac Type Severity Reaction Status Date / Time No Known Allergies Allergy Verified 12/28/22 18:25 Review of Systems ROS Statement: Those systems with pertinent positive or pertinent negative responses have been documented in the HPI. ROS Other: All systems not noted in ROS Statement are negative. Past Medical History Past Medical History: Atrial Fibrillation, Asthma Additional Past Medical History / Comment(s): Liver disease, former etoh History of Any Multi-Drug Resistant Organisms: None Reported Past Surgical History: Cholecystectomy Past Anesthesia/Blood Transfusion Reactions: No Reported Reaction Past Psychological History: No Psychological Hx Reported Smoking Status: Never smoker Past Alcohol Use History: None Reported Past Drug Use History: None Reported General Exam - General Exam Comments Initial Comments: General: Alert, in no acute distress Head: atraumatic normocephalic. Eyes PERRL, EOMI intact, mucous membranes moist Respiratory: Lungs clear to auscultation bilaterally Cardiovascular: Tachycardic Abdominal: Soft without guarding or rebound Extremities: Normal inspection with full range of motion and normal capillary refill, 2+ bilateral lower extremity edema Neuroogic: alert and oriented 3, CN II-XII intact, able to ambulate with steady gait Skin: warm dry and intact with normal color Limitations: no limitations Course Vital Signs 12/28/22 12/28/22 12/28/22 16:33 16:50 17:00 Temperature 97.8 F Pulse Rate 106 H 105 H Respiratory 32 H Rate Blood Pressure 122/80 108/88 O2 Sat by Pulse 97 98 97 Oximetry 12/28/22 12/28/22 12/28/22 17:30 18:00 18:13 Temperature Pulse Rate 98 93 100 Respiratory 18 Rate Blood Pressure 107/84 118/96 106/81 O2 Sat by Pulse 94 L 97 97 Oximetry 12/28/22 12/28/22 12/28/22 18:30 19:00 19:15 Temperature 97.9 F Pulse Rate 96 95 98 Respiratory 22 19 Rate Blood Pressure 106/81 123/83 117/88 O2 Sat by Pulse 97 Oximetry 12/28/22 12/28/22 12/28/22 19:30 20:00 20:08 Temperature Pulse Rate 85 Respiratory 18 Rate Blood Pressure 117/88 99/78 120/95 O2 Sat by Pulse 98 98 Oximetry 12/28/22 20:30 Temperature Pulse Rate 100 Respiratory 18 Rate Blood Pressure 120/95 O2 Sat by Pulse Oximetry - Reevaluation(s) Reevaluation #1: 12/28/22 19:00 Patient updated on initial results. Patient admits to abdominal swelling that is worsening over the last week. Denies any nausea or vomiting this time. Denies melena, hematochezia Reevaluation #2: 12/28/22 21:[address] vasquez bed is currently in the emergency department. He agrees to accept the patient for admission with consult to cardiology. EKG Findings - EKG Comments: EKG Findings:: I interpreted the following: EKG performed at 17:18 rate 89 bpm a nd atrial fibrillation. *MT interval, QRS 138, Qt/Qtc 401/448 Medical Decision Making - Medical Decision Making Was pt. sent in by a medical professional or institution (, PA, FIELD CROP TECHNICAL OFFICER, urgent care, hospital, or snf...) When possible be specific @ -[No] Did you speak to anyone other than the patient for history (EMS, parent, family, police, friend...)? What history was obtained from this source @ -[No] Did you review nursing and triage notes (agree or disagree)? Why? @ -[I reviewed and agree with nursing and triage notes] Were old charts reviewed (outside hosp., previous admission, EMS record, old EKG, old radiological studies, urgent care reports/EKG's, snf records)? Report findings @ -[No old charts were reviewed] Differential Diagnosis (chest pain, altered mental status, abdominal pain women, abdominal pain men, vaginal bleeding, weakness, fever, dyspnea, syncope, headache, dizziness, GI bleed, back pain, seizure, CVA, palpatations, mental health, musculoskeletal)? @ -[not applicable] EKG interpreted by me (3pts min.). @ -[As above] X-rays interpreted by me (1pt min.). @ -[None done] CT interpreted by me (1pt min.). @ -[None done] U/S interpreted by me (1pt. min.). @ -[None done] What testing was considered but not performed or refused? (CT, X-rays, U/S, labs)? Why? @ -[None] What meds were considered but not given or refused? Why? @ -[None] Did you discuss the management of the patient with other professionals (professionals i.e. , PA, FIELD CROP TECHNICAL OFFICER, lab, RT, psych nurse, social media marketer, snubber, teacher, privacy officer, welfare case worker)? Give summary @ -[No] Was smoking cessation discussed for >3mins.? @ -[No] Was critical care preformed (if so, how long)? @ -[No] Were there social determinants of health that impacted care today? How? (Homelessness, low income, unemployed, alcoholism, drug addiction, transportation, low edu. Level, literacy, decrease access to med. care, retirement, rehab)? @ -[No] Was there de-escalation of care discussed even if they declined (Discuss DNR or withdrawal of care, Hospice)? DNR status @ -[No] What co-morbidities impacted this encounter? (DM, HTN, Smoking, COPD, CAD, Cancer, CVA, ARF, Chemo, Hep., AIDS, mental health diagnosis, sleep apnea, mo rbid obesity)? @ -[None] Was patient admitted / discharged? Hospital course, mention meds given and route, prescriptions, significant lab abnormalities, going to OR and other pertinent info. @ -Admission. This is a 8-year-old male who presents the emergency department with bilateral leg edema and abdomen swelling. Patient had a thorough history and physical exam performed while in the ED. Physical exam reveals 2+ pedal edema. Abdomen is distended however nontender. Patient is in atrial fibrillation with rate controlled, lungs clear to auscultation bilaterally. Patient had lab work and imaging performed while in the ED which revealed WBC 7.5, hemoglobin 13.9 PT 13.8, INR 1.4 sodium 135 potassium 35 BUNs 27, creatin ine 0.1 troponin 0.01 to BNP [address] abdomen and pelvis reveals hyperemic circumferentially prominent loss of bladder and anesthetic, trace abdominal ascites and trace pleural effusions with third fluid. I discussed the results in detail with the patient who verbalized understanding. He is agreeable with the plan for admission. Case discussed with Dr. Galvan who was currently in the emergency department who agrees and accepts the patient for admission. Patient will have consult to cardiology. Case discussed with Dr. Santos Who agrees with plan of care Undiagnosed new problem with uncertain prognosis? @ -[No] Drug Therapy requiring intensive monitoring for toxicity (Heparin, Nitro, Insulin, Cardizem)? @ -[No] Were any procedures done? @ -[No] Diagnosis/symptom? @ -bilateral leg edema - shortness of breath - ascites Acute, or Chronic, or Acute on Chronic? @ -acute Uncomplicated (without systemic symptoms) or Complicated (systemic symptoms)? @ -uncomplicated Side effects of treatment? @ -[No] Exacerbation, Progression, or Severe Exacerbation? @ -[No] Poses a threat to life or bodily function? How? (Chest pain, USA, MD, pneumonia, PE, COPD, DKA, ARF, appy, cholecystitis, CVA, Diverticulitis, Homicidal, Suicidal, threat to staff... and all critical care pts) @ -low likelihood - Lab Data Result diagrams: 12/28/22 17:09 12/28/22 17:08 Lab Results 12/28/22 12/28/22 12/28/22 Range/Units 17:08 17:09 17:09 WBC 7.5 (3.8-10.6) k/uL RBC 4.70 (4.30-5.90) m/uL Hgb 13.9 (13.0-17.5) gm/dL Hct 42.6 (39.0-53.0) % MCV 90.8 (80.0-100.0) fL MCH 29.6 (25.0-35.0) pg MCHC 32.6 (31.0-37.0) g/dL RDW 15.1 (11.5-15.5) % Plt Count 147 L (150-450) k/uL MPV 9.6 Neutrophils % 59 % Lymphocytes % 25 % Monocytes % 10 % Eosinophils % 3 % Basophils % 0 % Neutrophils # 4.4 (1.3-7.7) k/uL Lymphocytes # 1.9 (1.0-4.8) k/uL Monocytes # 0.8 (0-1.0) k/uL Eosinophils # 0.2 (0-0.7) k/uL Basophils # 0.0 (0-0.2) k/uL PT 13.8 H (9.0-12.0) sec INR 1.4 H (<1.2) APTT 28.5 (22.0-30.0) sec Sodium 135 L (137-145) mmol/L Potassium 3.5 (3.5-5.1) mmol/L Chloride 102 (98-107) mmol/L Carbon Dioxide 22 (22-30) mmol/L Anion Gap 11 mmol/L BUN 27 H (9-20) mg/dL Creatinine 1.21 (0.66-1.25) mg/dL Est GFR (CKD-EPI)AfAm 75 (>60 ml/min/1.73 sqM) Est GFR (CKD-EPI)NonAf 65 (>60 ml/min/1.73 sqM) Glucose 105 H (74-99) mg/dL Calcium 8.6 (8.4-10.2) mg/dL Total Bilirubin 1.3 (0.2-1.3) mg/dL AST 41 (17-59) U/L ALT 38 (4-49) U/L Alkaline Phosphatase 196 H (38-126) U/L Troponin I (0.000-0.034) ng/mL NT-Pro-B Natriuret Pep pg/mL Total Protein 6.1 L (6.3-8.2) g/dL Albumin 3.6 (3.5-5.0) g/dL Urine Color Urine Appearance (Clear) Urine pH (5.0-8.0) Ur Specific [place] (1.001-1.035) Urine Protein (Negative) Urine Glucose (UA) (Negative) Urine Ketones (Negative) Urine Blood (Negative) Urine Nitrite (Negative) Urine Bilirubin (Negative) Urine Urobilinogen (<2.0) mg/dL Ur Leukocyte Esterase (Negative) Urine RBC (0-5) /hpf Urine WBC (0-5) /hpf Ur Squamous Epith Cells (0-4) /hpf Urine Mucus (None) /hpf 12/28/22 12/28/22 12/28/22 Range/Units 17:09 17:09 17:09 WBC (3.8-10.6) k/uL RBC (4.30-5.90) m/uL Hgb (13.0-17.5) gm/dL Hct (39.0-53.0) % MCV (80.0-100.0) fL MCH (25.0-35.0) pg MCHC (31.0-37.0) g/dL RDW (11.5-15.5) % Plt Count (150-450) k/uL MPV Neutrophils % % Lymphocytes % % Monocytes % % Eosinophils % % Basophils % % Neutrophils # (1.3-7.7) k/uL Lymphocytes # (1.0-4.8) k/uL Monocytes # (0-1.0) k/uL Eosinophils # (0-0.7) k/uL Basophils # (0-0.2) k/uL PT (9.0-12.0) sec INR (<1.2) APTT (22.0-30.0) sec Sodium (137-145) mmol/L Potassium (3.5-5.1) mmol/L Chloride (98-107) mmol/L Carbon Dioxide (22-30) mmol/L Anion Gap mmol/L BUN (9-20) mg/dL Creatinine (0.66-1.25) mg/dL Est GFR (CKD-EPI)AfAm (>60 ml/min/1.73 sqM) Est GFR (CKD-EPI)NonAf (>60 ml/min/1.73 sqM) Glucose (74-99) mg/dL Calcium (8.4-10.2) mg/dL Total Bilirubin (0.2-1.3) mg/dL AST (17-59) U/L ALT (4-49) U/L Alkaline Phosphatase (38-126) U/L Troponin I <0.012 (0.000-0.034) ng/mL NT-Pro-B Natriuret Pep 3860 pg/mL Total Protein (6.3-8.2) g/dL Albumin (3.5-5.0) g/dL Urine Color Yellow Urine Appearance Clear (Clear) Urine pH 5.5 (5.0-8.0) Ur Specific [place] 1.022 (1.001-1.035) Urine Protein 1+ H (Negative) Urine Glucose (UA) Negative (Negative) Urine Ketones Negative (Negative) Urine Blood Negative (Negative) Urine Nitrite Negative (Negative) Urine Bilirubin Negative (Negative) Urine Urobilinogen <2.0 (<2.0) mg/dL Ur Leukocyte Esterase Negative (Negative) Urine RBC 1 (0-5) /hpf Urine WBC 1 (0-5) /hpf Ur Squamous Epith Cells <1 (0-4) /hpf Urine Mucus Rare H (None) /hpf Disposition Clinical Impression: Leg edema, Shortness of breath, Ascites Disposition: HOME SELF-CARE Condition: Stable Is patient prescribed a controlled substance at d/c from ED?: No Referrals: None,Stated [Primary Care Provider] - 1-2 days Time of Disposition: 21:15
[2022-12-28 17:22] LABS: Basophils % (A) 0 %; Eosinophils # (A) 0.2 k/uL (0-0.7); Eosinophils % (A) 3 %; HCT 42.6 % (39.0-53.0); HGB 13.9 gm/dL (13.0-17.5); Lymphocytes # (A) 1.9 k/uL (1.0-4.8); Lymphocytes % (A) 25 %; MCH 29.6 pg (25.0-35.0); MCHC 32.6 g/dL (31.0-37.0); MCV 90.8 fL (80.0-100.0); Mean Platelet Volume 9.6; Monocytes # (A) 0.8 k/uL (0-1.0); Monocytes % (A) 10 %; Neutrophils # (A) 4.4 k/uL (1.3-7.7); Neutrophils % (A) 59 %; Platelet Count 147 k/uL (150-450); RDW 15.1 % (11.5-15.5); WBC 7.5 k/uL (3.8-10.6)
[2022-12-28 17:34] LABS: Albumin 3.6 g/dL (3.5-5.0); Calcium 8.6 mg/dL (8.4-10.2); Potassium 3.5 mmol/L (3.5-5.1); Total Bilirubin 1.3 mg/dL (0.2-1.3); Total Protein 6.1 g/dL (6.3-8.2)
[2022-12-28 17:42] LABS: INR 1.4 (<1.2); Partial Thromboplastin Time 28.5 sec (22.0-30.0); Prothrombin Time 13.8 sec (9.0-12.0)
[2022-12-28] MEDS ORDERED: FUROSEMIDE 10 MG/ML 4 ML VIAL IV STA (17:51)
--- NOTE | 2022-12-28 17:56 | XR ---
EXAMINATION TYPE: XR chest 2V DATE OF EXAM: 12/28/2022 5:40 PM COMPARISON: None TECHNIQUE: XR chest 2V Frontal and lateral views of the chest. CLINICAL INDICATION:Male, 62 years old with history of BL leg edema; FINDINGS: Lungs/Pleura: There is no evidence of pleural effusion, focal consolidation, or pneumothorax. Pulmonary vascularity: Unremarkable. Heart/mediastinum: Cardiomediastinal silhouette is prominent in size. Musculoskeletal: No acute osseous pathology. IMPRESSION: No evidence of heart failure.
[2022-12-28 18:02] LABS: Appearance,Urine Clear (Clear); Bilirubin,Urine Negative (Negative); Blood,Urine Negative (Negative); Color,Urine Yellow; Glucose,Urine (UA) Negative (Negative); Ketones,Urine Negative (Negative); Leukocyte Esterase,Urine Negative (Negative); Mucus,Urine Rare /hpf; Nitrite,Urine Negative (Negative); PH, Urine 5.5 (5.0-8.0); Protein,Urine 1+ (Negative); RBC,Urine 1 /hpf (0-5); Specific Gravity,Urine 1.022 (1.001-1.035); Squamous Epithelial Cell,Urine <1 /hpf (0-4); Urobilinogen,Urine <2.0 mg/dL (<2.0); WBC,Urine 1 /hpf (0-5)
--- NOTE | 2022-12-28 20:02 | CT ---
EXAMINATION TYPE: CT abdomen pelvis wo con CT DLP: 1831.7 mGycm, Automated exposure control for dose reduction was used. DATE OF EXAM: 12/28/2022 7:41 PM COMPARISON: CT 06/01/2022, MRCP 06/19/2022 CLINICAL INDICATION:Male, 62 years old with history of abdominal swelling; Abdomen and lower extremit y swelling. Chest pressure and difficulty breathing. TECHNIQUE: Axial CT of the abdomen and pelvis. Sagittal and coronal reformats were created on a [employer] workstation. Contrast used: None Oral contrast used: without Oral Contrast FINDINGS: LOWER CHEST: Trace bilateral pleural effusions. Right greater than left. ABDOMEN LIVER: Caudate lobe hypertrophy changes. Cerebral nodularity to the liver contour is suggested. The l iver has decreased in size from prior. Hepatic steatosis also markedly gone down. There remains low-a ttenuation liver. GALLBLADDER AND BILE DUCTS: The gallbladder has been surgically removed since prior. PANCREAS: Unremarkable. SPLEEN: Unremarkable. ADRENAL GLANDS: Unremarkable. KIDNEYS AND URETERS: No evidence of hydronephrosis or renal calculus. The ureters are unremarkable. PELVIS BLADDER: Hyperemic bladder wall with some adjacent fat stranding bladder wall measuring about limits of normal round 5 mm. REPRODUCTIVE: Unremarkable. ABDOMEN & PELVIS STOMACH AND BOWEL: No evidence of bowel obstruction. Scattered colonic diverticula present. The appen brendan is normal. PERITONEUM/RETROPERITONEUM: Trace free fluid around the liver. Scattered streaky suspected fluid thro ughout the abdominal abdomen. VASCULATURE: No evidence of aortic aneurysm. MUSCULOSKELETAL: No acute osseous abnormalities LYMPH NODES: No gross evidence for lymphadenopathy. SOFT TISSUE/ABDOMINAL WALL: Anasarca of the soft tissues. Anterior abdomen and abdominal brito of the [id number]. IMPRESSION: 1. Hyperemic circumferentially prominent wall of the bladder correlate with urinalysis. No additiona l evidence for acute abdominal process. 2. Anasarca trace abdominal ascites and trace pleural effusions correlate for systemic processes wit h third spacing of fluid. 3. Interval improvement of hepatic steatosis. 4. Interval surgically absent gallbladder without evidence for consultation.
[2022-12-28] MEDS ORDERED: NALOXONE 0.4 MG/ML 1 ML VIAL IV PRN (21:09)
[2022-12-29 04:26] LABS: Basophils % (A) 0 %; Eosinophils # (A) 0.1 k/uL (0-0.7); Eosinophils % (A) 2 %; HCT 39.3 % (39.0-53.0); HGB 12.7 gm/dL (13.0-17.5); Hypochromasia Slight; Lymphocytes # (A) 1.6 k/uL (1.0-4.8); Lymphocytes % (A) 23 %; MCH 29.9 pg (25.0-35.0); MCHC 32.4 g/dL (31.0-37.0); MCV 92.5 fL (80.0-100.0); Mean Platelet Volume 9.8; Monocytes # (A) 0.9 k/uL (0-1.0); Monocytes % (A) 12 %; Neutrophils # (A) 4.2 k/uL (1.3-7.7); Neutrophils % (A) 60 %; Platelet Count 126 k/uL (150-450); RBC 4.25 m/uL (4.30-5.90); RDW 14.8 % (11.5-15.5); WBC 7.1 k/uL (3.8-10.6)
[2022-12-29 04:46] LABS: Calcium 8.2 mg/dL (8.4-10.2); Potassium 2.9 mmol/L (3.5-5.1)
--- NOTE | 2022-12-29 05:08 | P.HPIM ---
History of Present Illness H&P Date: 12/29/22 The patient is a 62-year-old male with a PMH of A. fib on Xarelto, ashma, I'll call abuse, polysubstance abuse, and cirrhosis who presents to the emergency room with complaints of lower extremity edema, abdominal swelling, and shortness of breath. Patient reports that he initially noticed the symptoms 3 days ago and they have gradually worsened since then. The patient states he was seen at his PCPs office earlier today and blood work was ordered, however the patient felt more concerned and wanted to be seen immediately and decided to come to the emergency room. The patient denies experiencing orthopnea, PND, or chest discomfort. He denies abdominal pain. Denies fever, chills, nausea, vomiting. Patient reports ongoing alcohol use with drinking a sixpack daily. Patient however denies a history of hard liquor intake aside from a 6 pack daily for the past several years. CT abdomen and pelvis in the emergency room revealed anasarca with trace pleural effusions. Chest x-ray was unremarkable. EKG revealed A. fib at 89 bpm with intraventricular conduction delay. ED documentation reviewed and case discussed with ED provider. Laboratory evaluation was remarkable for platelet count 147, sodium 135, BUN 27, proBNP 3860, and an unremarkable UA. Review of systems: Pertinent positives and negatives as discussed in HPI, a complete review of systems was performed and all other systems are negative. Physical examination: Vital signs reviewed General: non toxic, no distress, appears older than stated age, obese Derm: no unusual rashes/lesions, warm Head: atraumatic, normocephalic, symmetric Eyes: EOMI, no lid lag, anicteric sclera, pupils equal round reactive to light ENT: Nose and ears atraumatic Neck: No cervical lymphadenopathy, trachea midline, supple Mouth: no lip lesion, mucus membranes moist Cardiovascular: S1S2 reg, no murmur, positive dorsalis pedis pulse bilateral, 2+ LE edema bruno Lungs: CTA bilateral, no rhonchi, no rales, no accessory muscle use Abdominal: Slightly distended, no obvious fluid thrill noted, nontender to palpation, no guarding Ext: muscle strength 5 out of 5 in all 4 extremities grossly, no gross muscle atrophy, no contractures, Neuro: CN II-XI grossly intact, no gross focal neuro deficits Psych: Alert, oriented, appropriate affect Assessment: Anasarca, cirrhosis vs new onset CHF Chronic conditions: Afib, Asthma, alcohol and polysusbtance abuse Imaging: CT abdomen and pelvis in the emergency room revealed anasarca with trace pleural effusions. Chest x-ray was unremarkable. EKG revealed A. fib at 89 bpm with intraventricular conduction delay Data Review: Laboratory evaluation was remarkable for platelet count 147, sodium 135, BUN 27, proBNP 3860, and an unremarkable UA. Plan: Obtain echocardiogram Continue with Lasix 40 mg IV every 12 hourly Monitor electrolytes Intake and output Cardiac monitoring DVT prophylaxis: Heparin subq The patient is admitted with an anticipated greater than 2 midnight stay for evaluation of ansarca CODE STATUS: Full Code Discussed with: Patient Anticipated discharge date: 2-[address]: Home Past Medical History Past Medical History: Atrial Fibrillation, Asthma Additional Past Medical History / Comment(s): Liver disease, former etoh History of Any Multi-Drug Resistant Organisms: None Reported Past Surgical History: Cholecystectomy Past Anesthesia/Blood Transfusion Reactions: No Reported Reaction Past Psychological History: No Psychological Hx Reported Smoking Status: Never smoker Past Alcohol Use History: None Reported Past Drug Use History: None Reported - Past Family History Father Family Medical History: COPD Medications and Allergies Home Medications Medication Instructions Recorded Confirmed Type carvediloL [Coreg] 12.5 mg PO BID 06/19/22 12/28/22 History Furosemide [Lasix] 40 mg PO DAILY 12/28/22 12/28/22 History Multivit-Min/FA/Lycopen/Lutein 1 tab PO DAILY 12/28/22 12/28/22 History [Centrum Silver Men Tablet] Xarelto (Unknown Dose) 1 tab PO DAILY 12/28/22 12/28/22 History Allergies Allergy/AdvReac Type Severity Reaction Status Date / Time No Known Allergies Allergy Verified 12/28/22 18:25 Physical Exam Vitals: Vital Signs Temp Pulse Resp BP Pulse Ox 12/29/22 00:00 78 21 103/64 12/28/22 23:30 79 20 113/81 12/28/22 23:00 87 19 116/82 12/28/22 22:30 87 13 121/84 96 12/28/22 22:00 91 20 105/92 91 L 12/28/22 21:57 83 18 105/92 96 12/28/22 21:30 94 20 116/94 12/28/22 21:00 90 20 116/90 98 12/28/22 20:30 100 18 120/95 12/28/22 20:08 85 18 120/95 98 12/28/22 20:00 99/78 98 12/28/22 19:30 117/88 12/28/22 19:15 97.9 F 98 19 117/88 97 12/28/22 19:00 95 22 123/83 12/28/22 18:30 96 106/81 12/28/22 18:13 100 18 106/81 97 12/28/22 18:00 93 118/96 97 12/28/22 17:30 98 107/84 94 L 12/28/22 17:00 105 H 108/88 97 12/28/22 16:50 98 12/28/22 16:33 97.8 F 106 H 32 H 122/80 97 Intake and Output 12/28/22 12/28/22 12/29/22 14:59 22:59 06:59 Output Total 1800 1050 Balance -1800 -1050 Output: Urine 1800 1050 Other: Weight 131.995 kg Results CBC & Chem 7: 12/29/22 04:03 12/29/22 04:03 Labs: Abnormal Lab Results - Last 24 Hours (Table) 12/28/22 12/28/22 12/28/22 Range/Units 17:08 17:09 17:09 Plt Count 147 L (150-450) k/uL PT 13.8 H (9.0-12.0) sec INR 1.4 H (<1.2) Sodium 135 L (137-145) mmol/L BUN 27 H (9-20) mg/dL Glucose 105 H (74-99) mg/dL Alkaline Phosphatase 196 H (38-126) U/L Total Protein 6.1 L (6.3-8.2) g/dL Urine Protein (Negative) Urine Mucus (None) /hpf 12/28/22 Range/Units 17:09 Plt Count (150-450) k/uL PT (9.0-12.0) sec INR (<1.2) Sodium (137-145) mmol/L BUN (9-20) mg/dL Glucose (74-99) mg/dL Alkaline Phosphatase (38-126) U/L Total Protein (6.3-8.2) g/dL Urine Protein 1+ H (Negative) Urine Mucus Rare H (None) /hpf
[2022-12-29] MEDS: POTASSIUM CHLORIDE ER 20 MEQ TAB.ER PO SCH ×2 (05:43→08:59)
[2022-12-29] MEDS: carvediloL 12.5 MG TAB PO SCH ×2 (08:59→18:48)
[2022-12-29] MEDS: FUROSEMIDE 10 MG/ML 4 ML VIAL IV SCH ×2 (08:59→20:26)
[2022-12-29] MEDS ORDERED: RIVAROXABAN 10 MG TAB PO SCH (09:00)
--- NOTE | 2022-12-29 15:43 | P.CRDCN ---
History of Present Illness Consult date: 12/29/22 Consult reason: shortness of breath History of present illness: The patient is a 62-year-old male who follows in the office with Dr. Roa, who presented to the hospital with increased shortness of breath. Patient had been struggling with edema over the last several weeks and has progressed to his abdomen. Shortness of breath started approximately 3 days prior. He states he is unable to complete his normal activities without having to stop and rest. He denies any current alcohol consumption. He states he does have sleep apnea but does not wear CPAP DIAGNOSTICS: EKG shows atrial fibrillation Chest x-ray shows no acute cardiopulmonary process Computed tomography scan of abdomen and pelvis shows anasarca with trace free fluid around the liver and trace pleural effusions Vitals: Blood pressure 118/83, SpO2 90% on room air, pulse 86, respiratory rate 97.7 Lab data: WBC 7.1, hemoglobin 12.7, hematocrit 39.3, platelet 126, sodium 136, potassium 2.9, BUN 26, creatinine 1.08, AST 41, ALT 38, troponin less than 0.012, BNP 3860 PAST MEDICAL HISTORY: EtOH abuse, Atrial fibrillation with prior ablation, obstructive sleep apnea REVIEW OF SYSTEMS: No fever or chills. No cough or expectoration. No diaphoresis. Patient denies headache, dizziness, blurred vision, double vision. Patient denies any stomach discomfort. No nausea, vomiting. No hematochezia. No hematemesis. Denies any black stools or blood in his stools. Denies dysuria or hematuria. No muscle weakness or numbness. positive for shortness of breath. Positive for edema. Negative for orthopnea. PHYSICAL EXAMINATION: This is 62-year-old male apparent distress at the time of my examination. HEENT: Head is atraumatic, normocephalic. Pupils are equal, round. Sclerae anicteric. Conjunctivae are clear. CHEST EXAMINATION: Lungs are clear to auscultation. No chest wall tenderness is noted on palpation or with deep breathing. HEART EXAMINATION: Irregular rate and rhythm. S1, S2 heard. No murmurs, gallops or rub. ABDOMEN:Distended nontender. Bowel sounds are heard. No organomegaly noted. EXTREMITIES: 2+ peripheral pulses. +2 lower extremity pitting edema and no calf tenderness noted. NEUROLOGIC EXAMINATION: Patient is awake, alert and oriented x3. FINAL ASSESSMENT AND PLAN: Shortness of breath Persistent atrial fibrillation, rate controlled History of EtOH abuse, currently denies however H&P states he admits to 6 pack per day Hypertension Obstructive sleep apnea, noncompliant with CPAP therapy PLAN: awaiting echocardiogram Continue IV Lasix Further recommendations to be based on clinical course I am dictating on behalf of Dr Keith Flroes's history/physical and assessment/plan. Past Medical History Past Medical History: Atrial Fibrillation, Asthma Additional Past Medical History / Comment(s): Liver disease, former etoh History of Any Multi-Drug Resistant Organisms: None Reported Past Surgical History: Cholecystectomy Past Anesthesia/Blood Transfusion Reactions: No Reported Reaction Past Psychological History: No Psychological Hx Reported Smoking Status: Never smoker Past Alcohol Use History: None Reported Past Drug Use History: None Reported - Past Family History Father Family Medical History: COPD Medications and Allergies Home Medications Medication Instructions Recorded Confirmed Type carvediloL [Coreg] 12.5 mg PO BID 06/19/22 12/28/22 History Furosemide [Lasix] 40 mg PO DAILY 12/28/22 12/28/22 History Multivit-Min/FA/Lycopen/Lutein 1 tab PO DAILY 12/28/22 12/28/22 History [Centrum Silver Men Tablet] Xarelto (Unknown Dose) 1 tab PO DAILY 12/28/22 12/28/22 History Allergies Allergy/AdvReac Type Severity Reaction Status Date / Time No Known Allergies Allergy Verified 12/28/22 18:25 Physical Exam Vitals: Vital Signs Temp Pulse Pulse Resp BP BP Pulse Ox 12/29/22 08:15 97.7 F 86 18 118/83 99 12/29/22 08:00 18 12/29/22 07:22 97.9 F 87 18 103/78 98 12/29/22 02:00 93 17 121/95 12/29/22 01:00 82 17 109/90 12/29/22 00:18 79 19 102/85 12/29/22 00:00 78 21 103/64 12/28/22 23:30 79 20 113/81 12/28/22 23:00 87 19 116/82 12/28/22 22:30 87 13 121/84 96 12/28/22 22:00 91 20 105/92 91 L 12/28/22 21:57 83 18 105/92 96 12/28/22 21:30 94 20 116/94 12/28/22 21:00 90 20 116/90 98 12/28/22 20:30 100 18 120/95 12/28/22 20:08 85 18 120/95 98 12/28/22 20:00 99/78 98 12/28/22 19:30 117/88 12/28/22 19:15 97.9 F 98 19 117/88 97 12/28/22 19:00 95 22 123/83 12/28/22 18:30 96 106/81 12/28/22 18:13 100 18 106/81 97 12/28/22 18:00 93 118/96 97 12/28/22 17:30 98 107/84 94 L 12/28/22 17:00 105 H 108/88 97 12/28/22 16:50 98 12/28/22 16:33 97.8 F 106 H 32 H 122/80 97 Intake and Output 12/29/22 12/29/22 12/29/22 06:59 14:59 22:59 Intake Total 236 Output Total 1050 Balance -1050 236 Intake: Oral 236 Output: Urine 1050 Results 12/29/22 04:03 12/29/22 04:03 Cardiac Enzymes 12/28/22 12/28/22 Range/Units 17:08 17:09 AST 41 (17-59) U/L Troponin I <0.012 (0.000-0.034) ng/mL Coagulation 12/28/22 Range/Units 17:09 PT 13.8 H (9.0-12.0) sec APTT 28.5 (22.0-30.0) sec CBC 12/28/22 12/29/22 Range/Units 17:09 04:03 WBC 7.5 7.1 (3.8-10.6) k/uL RBC 4.70 4.25 L (4.30-5.90) m/uL Hgb 13.9 12.7 L (13.0-17.5) gm/dL Hct 42.6 39.3 (39.0-53.0) % Plt Count 147 L 126 L (150-450) k/uL Comprehensive Metabolic Panel 12/28/22 12/29/22 Range/Units 17:08 04:03 Sodium 135 L 136 L (137-145) mmol/L Potassium 3.5 2.9 L (3.5-5.1) mmol/L Chloride 102 100 (98-107) mmol/L Carbon Dioxide 22 25 (22-30) mmol/L BUN 27 H 26 H (9-20) mg/dL Creatinine 1.21 1.08 (0.66-1.25) mg/dL Glucose 105 H 109 H (74-99) mg/dL Calcium 8.6 8.2 L (8.4-10.2) mg/dL AST 41 (17-59) U/L ALT 38 (4-49) U/L Alkaline Phosphatase 196 H (38-126) U/L Total Protein 6.1 L (6.3-8.2) g/dL Albumin 3.6 (3.5-5.0) g/dL Current Medications Generic Name Dose Route Start Last Admin Trade Name Freq PRN Reason Stop Dose Admin Carvedilol 12.5 mg 12/29/22 07:30 12/29/22 08:59 Carvedilol 12.5 Mg Tab PO 12.5 mg BID-W/MEALS YADI Administration Furosemide 40 mg 12/29/22 09:00 12/29/22 08:59 Furosemide 10 Mg/Ml 4 Ml Vial IV 40 mg Q12HR YADI Administration Naloxone HCl 0.2 mg 12/28/22 21:09 Naloxone 0.4 Mg/Ml 1 Ml Vial IV Q2M PRN Opioid Reversal Rivaroxaban 10 mg 12/29/22 09:00 12/29/22 08:59 Rivaroxaban 10 Mg Tab PO 10 mg DAILY YADI Administration Protocol Intake and Output 12/29/22 12/29/22 12/29/22 06:59 14:59 22:59 Intake Total 236 Output Total 1050 Balance -1050 236 Intake: Oral 236 Output: Urine 1050 12/29/22 04:03 12/29/22 04:03
--- NOTE | 2022-12-29 17:53 | CA ---
Transthoracic Echo Report Name: Chaparro Miranda Age: 62 Gender: M : 1960 Exam Date: 12/29/2022 10:48 Exam Location: [place] [facility] Ht (in): 78 Wt (lb): 291 Ordering Physician: Parminder Rubi DO Attending/Referring Phys: [id number], Elicia Gas Leak Inspector Helper Virginie Moise RDCS Procedure CPT: Indications: Effusion Cardiac Hx: Technical Quality: Technically difficult study Contrast 1: Lumason Total Dose (mL): 4 Contrast 2: Total Dose (mL): MEASUREMENTS (Male / Female) Normal Values 2D ECHO LV Diastolic Diameter PLAX 5.1 cm 4.2 - 5.9 / 3.9 - 5.3 cm LV Systolic Diameter PLAX 4.4 cm IVS Diastolic Thickness 1.4 cm 0.6 - 1.0 / 0.6 - 0.9 cm LVPW Diastolic Thickness 1.4 cm 0.6 - 1.0 / 0.6 - 0.9 cm LV Relative Wall Thickness 0.5 RV Internal Dim ED PLAX 4.5 cm LA Volume 146.4 cm??? 18 - 58 / 22 - 52 cm??? M-MODE Aortic Root Diameter MM 2.9 cm LA Systolic Diameter MM 5.3 cm LA Ao Ratio MM 1.8 AV Cusp Separation MM 2.4 cm DOPPLER AV Peak Velocity 114.3 cm/s AV Peak Gradient 5.2 mmHg AV Mean Velocity 81.7 cm/s AV Mean Gradient 2.9 mmHg AV Velocity Time Integral 19.6 cm LVOT Peak Velocity 75.3 cm/s LVOT Peak Gradient 2.3 mmHg LVOT Velocity Time Integral 13.5 cm MV Area PHT 4.5 cm??? Mitral E Point Velocity 97.4 cm/s Mitral A Point Velocity 0.3 cm/s Mitral E to A Ratio 284.4 MV Deceleration Time 166.9 ms MV E' Velocity 9.0 cm/s Mitral E to MV E' Ratio 10.9 TR Peak Velocity 246.2 cm/s TR Peak Gradient 24.2 mmHg Right Ventricular Systolic Press 28.3 mmHg FINDINGS Left Ventricle Moderately increased left ventricular wall thickness. Left ventricular cavity size normal. Severely reduced global left ventricular systolic function. Left ventricular ejection fraction is estimated at 20-25 %. Right Ventricle Severe right ventricular dilatation. Right ventricular systolic pressure within normal limits. Right Atrium Right atrium not well visualized. Left Atrium Severely increased left atrial volume. Mildly increased left atrial area. Mitral Valve Structurally normal mitral valve. [id number] mitral regurgitation. Aortic Valve No aortic valve stenosis or regurgitation. Tricuspid Valve Structurally normal tricuspid valve. Mild tricuspid regurgitation. Pulmonic Valve Trace pulmonic regurgitation. Pericardium No pericardial effusion. Aorta Normal size aortic root and proximal ascending aorta. CONCLUSIONS Dilated LV with severe LV dysfunction Enlarged RV Dilated IVC Severely enlarged left atrium Previewed by: Dr. Keith Flores MD (Electronically Signed) Final Date: 29 Dec 2022 17:52
--- NOTE | 2022-12-29 19:25 | P.PN ---
Subjective Progress Note Date: 12/29/22 Hospital course: Patient is a very pleasant 62-year-old male with a past medical history of atrial fibrillation on anticoagulation with Xarelto, asthma/COPD, EtOH abuse, polysubstance abuse, and alcoholic cirrhosis. He presented to the emergency department with a chief complaint of bilateral lower extremity edema, abdominal swelling, and shortness of breath. Patient underwent full evaluation. Labs were completed and reviewed. CBC unremarkable. Coagulation profile revealing elevated PT of 13.8, INR of 1.4. BMP revealing hypernatremia with sodium 135 and mild prerenal azotemia with BUN of 7. Liver profile normal findings with the exception of mildly elevated alkaline phosphatase of 196. Troponin less than 0.012. ProBNP 3860. Urinalysis was positive for protein but negative for infection. CT abdomen and pelvis was completed, showing hyperemic circumferentially prominent wall of the bladder and anasarca trace abdominal ascites and trace pleural effusion, and interval improvement of hepatic steatosis. Chest x-ray completed, lungs appear clear with radiology report stating no evidence of heart failure. EKG completed showing atrial fibrillation with a controlled ventricular rate of 89 bpm. Patient admitted under our services with consultation to cardiology. Physical exam: Vital signs reviewed and stable. General: Nontoxic, no distress and appears stated age. Derm: Skin warm and dry, normal coloration for ethnicity. Head: Atraumatic, normocephalic and symmetric. Eyes: EOMs intact, no lid lag, and anicteric sclera Mouth: no lip lesions, mucus membranes moist Cardiovascular: regular rate and rhythm with normal S1S2, systolic murmur, positive posterior tibial pulses bilaterally, and cap refill < 2 seconds. Lungs: Respirations even, regular, and unlabored on room air. Lungs CTA bilaterally, no rhonchi, no rales, no wheezing, and no accessory muscle usage. Abdominal: soft, nontender to palpation, no guarding, no appreciable organomegaly Ext: ROM intact. No gross muscle atrophy, 2+ pitting bilateral edema, no contractures Neuro: Speech clear, face symmetrical and CN II-XII grossly intact with no noted focal neuro deficits Psych: Alert and oriented to person, place, time, and situation. Appropriate and pleasant affect. Assessment and Plan of Care: Anasarca, possibly secondary to liver cirrhosis versus acute congestive heart failure Chronic atrial fibrillation History of asthma/COPD History of alcohol abuse History of alcohol cirrhosis Hypertension -Echocardiogram to be completed. -Labs were completed and reviewed. CBC unremarkable. Coagulation profile revealing elevated PT of 13.8, INR of 1.4. BMP revealing hypernatremia with sodium 135 and mild prerenal azotemia with BUN of 7. Liver profile normal findings with the exception of mildly elevated alkaline phosphatase of 196. Troponin less than 0.012. ProBNP 3860. -Urinalysis was positive for protein but negative for infection. -CT abdomen and pelvis was completed, showing hyperemic circumferentially prominent wall of the bladder and anasarca trace abdominal ascites and trace pleural effusion, and interval improvement of hepatic steatosis. -Chest x-ray completed, lungs appear clear with radiology report stating no evidence of heart failure. -EKG completed showing atrial fibrillation with a controlled ventricular rate of 89 bpm. Patient admitted under our services with consultation to cardiology. -Strict I's and O's, Patient has had a 2850 mL documented output overnight. -Lasix 40 mg IVP every 12 hours -Continue cardiac medication regimen with carvedilol 12.5 mg twice daily and Xarelto 10 mg daily. CODE STATUS: Full code DVT prophylaxis: Xarelto Discussed with: Patient and RN Anticipated discharge date: Clinical course to determine Anticipated discharge place: Home Patient was seen independently by Nurse Pracitioner. This document was prepared using [employer] dictation software. Please allow for errors in foreign law consultant, while rare they do occur. This patient was seen independently by Emil Roth NP, I agree with documentation as above with the following additions: None. Objective - Vital Signs Vital signs: Vital Signs Temp 97.7 F 12/29/22 08:15 Pulse 86 12/29/22 08:15 Resp 18 12/29/22 08:15 BP 118/83 12/29/22 08:15 Pulse Ox 99 12/29/22 08:15 FiO2 Intake & Output 12/28/22 12/29/22 12/29/22 18:59 06:59 18:59 Intake Total 118 Output Total 800 0 Balance -800 -2049 118 Weight 131.995 kg Intake: Oral 118 Output: Urine 800 2049 - Labs CBC & Chem 7: 12/31/22 05:36 12/31/22 05:36 Labs: Abnormal Lab Results - Last 24 Hours (Table) 12/28/22 12/28/22 12/28/22 Range/Units 17:08 17:09 17:09 RBC (4.30-5.90) m/uL Hgb (13.0-17.5) gm/dL Plt Count 147 L (150-450) k/uL PT 13.8 H (9.0-12.0) sec INR 1.4 H (<1.2) Sodium 135 L (137-145) mmol/L Potassium (3.5-5.1) mmol/L BUN 27 H (9-20) mg/dL Glucose 105 H (74-99) mg/dL Calcium (8.4-10.2) mg/dL Alkaline Phosphatase 196 H (38-126) U/L Total Protein 6.1 L (6.3-8.2) g/dL Urine Protein (Negative) Urine Mucus (None) /hpf 12/28/22 12/29/22 12/29/22 Range/Units 17:09 04:03 04:03 RBC 4.25 L (4.30-5.90) m/uL Hgb 12.7 L (13.0-17.5) gm/dL Plt Count 126 L (150-450) k/uL PT (9.0-12.0) sec INR (<1.2) Sodium 136 L (137-145) mmol/L Potassium 2.9 L (3.5-5.1) mmol/L BUN 26 H (9-20) mg/dL Glucose 109 H (74-99) mg/dL Calcium 8.2 L (8.4-10.2) mg/dL Alkaline Phosphatase (38-126) U/L Total Protein (6.3-8.2) g/dL Urine Protein 1+ H (Negative) Urine Mucus Rare H (None) /hpf
[2022-12-30] MEDS: carvediloL 12.5 MG TAB PO SCH (06:11)
[2022-12-30] MEDS ORDERED: SPIRONOLACTONE 25 MG TAB PO STA (08:06)
[2022-12-30 09:12] LABS: African American GFR (CKD) >90 (>60 ml/min/1.73 sqM); Anion Gap 8 mmol/L; Blood Urea Nitrogen 18 mg/dL (9-20); Calcium 8.4 mg/dL (8.4-10.2); Carbon Dioxide 28 mmol/L (22-30); Chloride 102 mmol/L (98-107); Glucose 121 mg/dL (74-99); Non-African American GFR(CKD) 87 (>60 ml/min/1.73 sqM); Potassium 3.5 mmol/L (3.5-5.1); Sodium 138 mmol/L (137-145)
[2022-12-30] MEDS: METOPROLOL SUCCINATE (ER) 50 MG TAB.ER.24H PO SCH ×2 (09:55→21:42)
[2022-12-30] MEDS: FUROSEMIDE 40 MG TAB PO SCH (09:55)
[2022-12-30] MEDS: RIVAROXABAN 20 MG TAB PO SCH (09:56)
--- NOTE | 2022-12-30 15:02 | P.PN ---
Subjective Progress Note Date: 12/30/22 The patient is a 62-year-old male who follows in the office with Dr. Roa, who presented to the hospital with increased shortness of breath. Patient had been struggling with edema over the last several weeks and has progressed to his abdomen. Shortness of breath started approximately 3 days prior. He states he is unable to complete his normal activities without having to stop and rest. He denies any current alcohol consumption, but admitting to consuming a 6 pack per day per ER note. He states he does have sleep apnea but does not wear CPAP. Echocardiogram has revealed reduced LV function at 20-25% with global hypokinesis, severe RV dilation, severely increased left atrial volume, moderate to severe mitral regurgitation. The patient states he is feeling better now that he has diuresis. Low shortness of breath and less edema. No chest pain or pressure. No dizziness. GENERAL: Well-appearing, well-nourished and in no acute distress. NECK: Supple without JVD or thyromegaly. LUNGS: Breath sounds clear to auscultation bilaterally. Respiration equal and unlabored. No wheezes, rales or rhonchi. HEART: Regular rate and rhythm without murmurs, rubs or gallops. S1 and S2 heard. EXTREMITIES: Normal range of motion, mild edema. No clubbing or cyanosis. Peripheral pulses intact and strong. VITALS: Blood pressure 104/75, pulse 57, respiratory rate 18, afebrile, SpO2 95% on room air TELEMETRY: Sinus rhythm overnight IMPRESSION: Shortness of breath Cardiomyopathy, likely secondary to EtOH abuse Persistent atrial fibrillation, rate controlled History of EtOH abuse, currently denies however H&P states he admits to 6 pack per day Hypertension Obstructive sleep apnea, noncompliant with CPAP therapy Mitral regurgitation, mild to moderate PLAN: Switch to Toprol-XL Transitioned to oral diuretics including spironolactone Start Entresto tomorrow Monitor electrolytes and kidney function Complete alcohol cessation advised Follow-up with primary electrical and radio mock up mechanic I am dictating on behalf of Dr Keith Flores's history/physical and assessment/plan. Objective - Vital Signs Vital signs: Vital Signs Temp 97.7 F 12/30/22 07:24 Pulse 57 L 12/30/22 07:24 Resp 18 12/30/22 07:24 BP 104/75 12/30/22 07:24 Pulse Ox 95 12/30/22 07:24 FiO2 Intake & Output 12/29/22 12/30/22 12/30/22 18:59 06:59 18:59 Intake Total 236 236 Balance 236 236 Weight 131.995 kg 126.1 kg Intake: Oral 236 236 Other: # Voids 2 - Labs CBC & Chem 7: 12/29/22 04:03 12/30/22 08:45 Labs: Abnormal Lab Results - Last 24 Hours (Table) 12/30/22 Range/Units 08:45 Glucose 121 H (74-99) mg/dL
--- NOTE | 2022-12-30 18:45 | P.PN ---
Subjective Progress Note Date: 12/30/22 Hospital course: Patient is a very pleasant 62-year-old male with a past medical history of atrial fibrillation on anticoagulation with Xarelto, asthma/COPD, EtOH abuse, polysubstance abuse, and alcoholic cirrhosis. He presented to the emergency department with a chief complaint of bilateral lower extremity edema, abdominal swelling, and shortness of breath. Patient underwent full evaluation. Labs were completed and reviewed. CBC unremarkable. Coagulation profile revealing elevated PT of 13.8, INR of 1.4. BMP revealing hypernatremia with sodium 135 and mild prerenal azotemia with BUN of 7. Liver profile normal findings with the exception of mildly elevated alkaline phosphatase of 196. Troponin less than 0.012. ProBNP 3860. Urinalysis was positive for protein but negative for infection. CT abdomen and pelvis was completed, showing hyperemic circumferentially prominent wall of the bladder and anasarca trace abdominal ascites and trace pleural effusion, and interval improvement of hepatic steatosis. Chest x-ray completed, lungs appear clear with radiology report stating no evidence of heart failure. EKG completed showing atrial fibrillation with a controlled ventricular rate of 89 bpm. Patient admitted under our services with consultation to cardiology. Physical exam: Vital signs reviewed and stable. General: Nontoxic, no distress and appears stated age. Derm: Skin warm and dry, normal coloration for ethnicity. Head: Atraumatic, normocephalic and symmetric. Eyes: EOMs intact, no lid lag, and anicteric sclera Mouth: no lip lesions, mucus membranes moist Cardiovascular: regular rate and rhythm with normal S1S2, systolic murmur, positive posterior tibial pulses bilaterally, and cap refill < 2 seconds. Lungs: Respirations even, regular, and unlabored on room air. Lungs CTA bilaterally, no rhonchi, no rales, no wheezing, and no accessory muscle usage. Abdominal: Distended, taught, nontender to palpation, no guarding, no appreciable organomegaly Ext: ROM intact. No gross muscle atrophy, 2+ pitting bilateral edema, no contractures Neuro: Speech clear, face symmetrical and CN II-XII grossly intact with no noted focal neuro deficits Psych: Alert and oriented to person, place, time, and situation. Appropriate and pleasant affect. Assessment and Plan of Care: Acute systolic heart failure with severely impaired EF of 20-25% Chronic atrial fibrillation History of asthma/COPD History of alcohol abuse History of alcohol cirrhosis Hypertension -Echocardiogram completed revealing severely impaired EF of 20-25% with severe reduced global left ventricular systolic function, dilated LV with severe LV dysfunction, enlarged right ventricle, dilated IVC, and severely enlarged left atrium. -Cardiology following, discontinuing IV Lasix and patient's carvedilol and starting patient on oral Lasix 40 mg daily, metoprolol 50 mg twice daily, and try still 24 mg/26 mg tablets twice daily, and Aldactone 25 mg daily. - -Labs were completed and reviewed. BMP unremarkable showing resolution of previous he noted hypokalemia with repeat potassium of 3.5. -Urinalysis was positive for protein but negative for infection. -CT abdomen and pelvis was completed, showing hyperemic circumferentially prominent wall of the bladder and anasarca trace abdominal ascites and trace pleural effusion, and interval improvement of hepatic steatosis. -Chest x-ray completed, lungs appear clear with radiology report stating no evidence of heart failure. -EKG completed showing atrial fibrillation with a controlled ventricular rate of 89 bpm. Patient admitted under our services with consultation to cardiology. -Strict I's and O's -Continue Xarelto 10 mg daily. CODE STATUS: Full code DVT prophylaxis: Xarelto Discussed with: Patient and RN Anticipated discharge date: Clinical course to determine Anticipated discharge place: Home Patient was seen independently by Nurse Pracitioner. This document was prepared using [employer] dictation software. Please allow for errors in furnace feeder, while rare they do occur. Objective - Vital Signs Vital signs: Vital Signs Temp 97.7 F 12/30/22 07:24 Pulse 57 L 12/30/22 07:24 Resp 18 12/30/22 07:24 BP 104/75 12/30/22 07:24 Pulse Ox 95 12/30/22 07:24 FiO2 Intake & Output 12/29/22 12/30/22 12/30/22 18:59 06:59 18:59 Intake Total 236 118 Balance 236 118 Weight 131.995 kg 126.1 kg Intake: Oral 236 118 Other: # Voids 2 - Labs CBC & Chem 7: 12/29/22 04:03 12/30/22 08:45 Labs: Abnormal Lab Results - Last 24 Hours (Table) 12/30/22 Range/Units 08:45 Glucose 121 H (74-99) mg/dL
[2022-12-31 07:25] VITALS: RESP 18
[2022-12-31] MEDS: METOPROLOL SUCCINATE (ER) 50 MG TAB.ER.24H PO SCH (08:25)
[2022-12-31] MEDS: RIVAROXABAN 20 MG TAB PO SCH (08:25)
[2022-12-31] MEDS: FUROSEMIDE 40 MG TAB PO SCH (08:26)
[2022-12-31] MEDS ORDERED: SACUBITRIL/VALSARTAN 24 MG-26 MG TABLET PO SCH (09:00)
[2022-12-31 09:28] LABS: BUN/Creat Ratio 16.73 Ratio (12.00-20.00); Blood Urea Nitrogen 17.9 mg/dL (9.0-27.0); Carbon Dioxide 23.9 mmol/L (20.0-27.5); Non-African American GFR(CKD) 75.1 (60.0-200.0); Potassium 3.6 mmol/L (3.5-5.5)
[2022-12-31] MEDS ORDERED: metOLazone 2.5 MG TAB PO SCH (09:30)
[2022-12-31 10:35] LABS: HCT 41.1 % (39.6-50.0); HGB 13.1 g/dL (13.0-17.0); MCH 29.2 pg (27.0-32.0); MCHC 31.9 g/dL (32.0-37.0); MCV 91.7 fL (80.0-97.0); NRBC Per 100 WBC 0 /100 WBCS (0.0-0.0); Platelet Count 156 X 10*3/uL (140-440); RBC 4.48 X 10*6/uL (4.40-5.60); RDW 14.7 % (11.5-14.5)
[2022-12-31 10:44] LABS: African American GFR (CKD) 85.1 (60.0-200.0); Albumin 3.7 g/dL (3.8-4.9); Albumin/Globulin Ratio 2.02 (1.60-3.17); Anion Gap 13.6 mmol/L (10.00-18.00); BUN/Creat Ratio 16.79 Ratio (12.00-20.00); Blood Urea Nitrogen 18.3 mg/dL (9.0-27.0); Carbon Dioxide 23.7 mmol/L (20.0-27.5); Globulin 1.8 g/dL (1.6-3.3); Magnesium 2.1 mg/dL (1.5-2.4); Non-African American GFR(CKD) 73.4 (60.0-200.0); Potassium 3.7 mmol/L (3.5-5.5); Total Bilirubin 0.9 mg/dL (0.30-1.20); Total Protein 5.5 g/dL (6.2-8.2)
--- NOTE | 2022-12-31 13:41 | P.DS ---
Providers Date of admission: 12/28/22 20:58 Expected date of discharge: 12/31/22 Attending physician: Geovany Galvan MD Consults: 12/28/22 21:09 Consult Physician Routine Consulting Provider: Gaston Higgins Consult Reason/Comments: SOB on exertion Do you want consulting provider notified?: Yes Primary care physician: Stated None Hospital Course: Discharge Diagnosis: Acute systolic heart failure with severely impaired EF of 20-25%. Chronic atrial fibrillation History of asthma/COPD History of alcohol abuse History of alcohol cirrhosis Hypertension Hospital Course: Patient is a very pleasant 62-year-old male with a past medical history of atrial fibrillation on anticoagulation with Xarelto, asthma/COPD, EtOH abuse, polysubstance abuse, and alcoholic cirrhosis. He presented to the emergency department with a chief complaint of bilateral lower extremity edema, abdominal swelling, and shortness of breath. Patient underwent full evaluation. Labs were completed and reviewed. CBC unremarkable. Coagulation profile revealing elevated PT of 13.8, INR of 1.4. BMP revealing hypernatremia with sodium 135 and mild prerenal azotemia with BUN of 7. Liver profile normal findings with the exception of mildly elevated alkaline phosphatase of 196. Troponin less than 0.012. ProBNP 3860. Urinalysis was positive for protein but negative for infection. CT abdomen and pelvis was completed, showing hyperemic circumferentially prominent wall of the bladder and anasarca trace abdominal ascites and trace pleural effusion, and interval improvement of hepatic steatosis. Chest x-ray completed, lungs appear clear with radiology report stating no evidence of heart failure. EKG completed showing atrial fibrillation with a controlled ventricular rate of 89 bpm. Patient admitted under our services with consultation to cardiology. Echocardiogram completed revealing severely impaired EF of 20-25% with severe reduced global left ventricular systolic function, dilated LV with severe LV dysfunction, enlarged right ventricle, dilated IVC, and severely enlarged left atrium. Cardiology evaluating discussed medical management versus AICD placement with patient. Patient does not wish to undergo AICD placement and wanting to remain on medical management. In addition to continuation of patient's home Xarelto, cardiology discontinued patient's home carvedilol and started patient on metoprolol 50 mg twice daily along with Entresto 24 mg/26 mg tablet twice daily along with continuation of daily medication regimen with Lasix 40 mg daily and Xarelto 20 mg daily. Patient currently free from any complaints at this time states he is breathing better and denies having any headache, lightheadedness, dizziness, chest pain, palpitations, or shortness of breath at this time. Vital signs stable with blood pressure 122/72, heart rate 82, and respiratory rate 18 with SpO2 of 98% on room air. Patient medically stable for discharge at this time and to follow up as discussed with PCP and spot checker. Physical exam: Vital signs reviewed and stable. General: Nontoxic, no distress and appears stated age. Derm: Skin warm and dry, normal coloration for ethnicity. Head: Atraumatic, normocephalic and symmetric. Eyes: EOMs intact, no lid lag, and anicteric sclera Mouth: no lip lesions, mucus membranes moist Cardiovascular: regular rate and rhythm with normal S1S2, systolic murmur, positive posterior tibial pulses bilaterally, and cap refill < 2 seconds. Lungs: Respirations even, regular, and unlabored on room air. Lungs CTA bilaterally, no rhonchi, no rales, no wheezing, and no accessory muscle usage. Abdominal: Distended, taught, nontender to palpation, no guarding, no appreciable organomegaly Ext: ROM intact. No gross muscle atrophy, 2+ pitting bilateral edema, no contractures Neuro: Speech clear, face symmetrical and CN II-XII grossly intact with no noted focal neuro deficits Psych: Alert and oriented to person, place, time, and situation. Appropriate and pleasant affect. A total of 33 minutes of time were spent preparing this complex discharge summary. Pt was discharged on 12/31/22 at 1:37 PM. Patient was seen independently by Nurse Practitioner. This document was prepared using [employer] dictation software. Please allow for errors in medical coordinator pesticide use while rare they do occur. This patient was seen independently by Emil Roth NP. I agree with the documentation, assessment and plan. Patient Condition at Discharge: Stable Plan - Discharge Summary Discharge Rx Participant: Yes New Discharge Prescriptions: New Rivaroxaban [Xarelto] 20 mg PO DAILY 30 Days #30 tab Sacubitril/Valsartan [Entresto 24 mg-26 mg Tablet] 1 each PO BID 30 Days #60 tab Metoprolol Succinate (ER) [Toprol XL] 50 mg PO BID 30 Days #60 tab Continue Multivit-Min/FA/Lycopen/Lutein [Centrum Silver Men Tablet] 1 tab PO DAILY Furosemide [Lasix] 40 mg PO DAILY Discontinued carvediloL [Coreg] 12.5 mg PO BID No Action Xarelto (Unknown Dose) 1 tab PO DAILY Discharge Medication List Furosemide [Lasix] 40 mg PO DAILY 12/28/22 [History] Multivit-Min/FA/Lycopen/Lutein [Centrum Silver Men Tablet] 1 tab PO DAILY 12/28/22 [History] Xarelto (Unknown Dose) 1 tab PO DAILY 12/28/22 [History] Metoprolol Succinate (ER) [Toprol XL] 50 mg PO BID 30 Days #60 tab 12/31/22 [Rx] Rivaroxaban [Xarelto] 20 mg PO DAILY 30 Days #30 tab 12/31/22 [Rx] Sacubitril/Valsartan [Entresto 24 mg-26 mg Tablet] 1 each PO BID 30 Days #60 tab 12/31/22 [Rx] Follow up Appointment(s)/Referral(s): Irene Roa MD [STAFF PHYSICIAN] - 01/04/23 11:15 am Parminder Ross MD [STAFF PHYSICIAN] - 1-2 Days Patient Instructions/Handouts: Heart Failure (DC) Activity/Diet/Wound Care/Special Instructions: How To Apply for Disability in [place] Online: Apply online on the [facility]'s website at [employer]gov. Telephone: Apply over the phone by calling the [facility]'s toll-free customer service line at (TTY ) In-person: Apply in-person at the closest Social Security field office. Find your local office here. Activity: As tolerated. Take breaks as needed. Diet: Heart healthy and carb consistent diet. Avoid salts, or foods with hidden salts such as canned or boxed foods and frozen dinners. Extra salt makes your heart work harder and traps the fluid in your body for longer. Special Instructions: Weigh yourself every morning after you urinate. If you gain 3 pounds overnight or more than 5 pounds in one week, call your primary physician and spot checker for guidance on your medications or they may want to see you in their office. Keep a daily log of your weights and be sure to bring with you at follow up vi sits with your PCP and spot checker. Take all of your medications as directed, especially your water pills. NEVER skip a dose. And remember to keep all of your doctor's appointments and follow- up as needed. Elevate your legs when you are not up moving around to help with circulation and prevent swelling. Compression stockings are also a great way to improve lower extremity circulation and prevent/improve lower extremity edema. Call your primary care provider and spot checker if you notice any extra swelling in your legs, ankles, feet or abdomen, if you have a new dry cough, if your shortness of breath worsens with activity or at rest, or if you feel more fatigued. Thank you for allowing us to participate in your care, it was truly a pleasure having you for our patient!!! Discharge/Stand Alone Forms: Who Do I Call?, Community Resources, Outpatient Counseling, In Substance Abuse Facilities Discharge Disposition: HOME SELF-CARE
[2022-12-31 14:11] VITALS: BP 122/72; PULSE 82; TEMP 97.8
--- NOTE | 2022-12-31 14:11 | P.PN ---
Subjective Progress Note Date: 12/31/22 The patient is a 62-year-old male who follows in the office with Dr. Roa, who presented to the hospital with increased shortness of breath. Patient had been struggling with edema over the last several weeks and has progressed to his abdomen. Shortness of breath started approximately 3 days prior. He states he is unable to complete his normal activities without having to stop and rest. He denies any current alcohol consumption, but admitting to consuming a 6 pack per day per ER note. He states he does have sleep apnea but does not wear CPAP. Echocardiogram has revealed reduced LV function at 20-25% with global hypokinesis, severe RV dilation, severely increased left atrial volume, moderate to severe mitral regurgitation. 12/31 Patient continues to have lower extremity edema but improving. He is down in weight by about 4 pounds. He has been started on Entresto today. Plan is to give one dose of Zaroxolyn patient can be discharged on current medications. He has been afebrile, heart rate in the 80s and 90s, blood pressure 117/79. WBC 7.1, hemoglobin 13, platelet count 156. Sodium 138, potassium 3.6, chloride 102, BUN 17 and creatinine 1.1. Magnesium 2.1. shortness of breath and less edema. No chest pain or pressure. No dizziness. GENERAL: Well-appearing, well-nourished and in no acute distress. NECK: Supple without JVD or thyromegaly. LUNGS: Breath sounds clear to auscultation bilaterally. Respiration equal and unlabored. No wheezes, rales or rhonchi. HEART: Regular rate and rhythm without murmurs, rubs or gallops. S1 and S2 heard. EXTREMITIES: Normal range of motion, mild edema. No clubbing or cyanosis. Peripheral pulses intact and strong. IMPRESSION: Shortness of breath Cardiomyopathy, likely secondary to EtOH abuse Persistent atrial fibrillation, rate controlled History of EtOH abuse, currently denies however H&P states he admits to 6 pack per day Hypertension Obstructive sleep apnea, noncompliant with CPAP therapy Mitral regurgitation, mild to moderate PLAN: Continue current cardiac medications 1 dose of Zaroxolyn 2.5 mg today. Patient should not continue at discharge Complete alcohol cessation advised Patient is cleared for discharge to follow up with Dr. Roa in one week. Nurse practitioner note has been reviewed, I agree with the documented findings and plan of care. Patient was seen and examined. Objective - Vital Signs Vital signs: Vital Signs Temp 97.5 F L 12/31/22 07:15 Pulse 83 12/31/22 07:15 Resp 18 12/31/22 07:15 BP 117/79 12/31/22 07:15 Pulse Ox 97 12/31/22 07:15 FiO2 Intake & Output 12/30/22 12/31/22 12/31/22 18:59 06:59 18:59 Intake Total 354 354 Balance 354 354 Weight 127.14 kg Intake: Oral 354 354 Other: # Voids 2 2 - Labs CBC & Chem 7: 12/31/22 05:36 12/31/22 05:36
== END 2022-12-31 16:13 | disposition home or self-care (01) | DRG 291 ==
LOC: EC 16:26 → 5NMEDONC 20:58 → 6NMEDSUR 12-29 06:01
PROVIDERS: ADMIT Internal Medicine; ATTEND Internal Medicine
DX: I11.0 Hypertensive heart disease with heart failure (principal); I50.21 Acute systolic (congestive) heart failure; I48.19 Other persistent atrial fibrillation; E87.1 Hypo-osmolality and hyponatremia; I42.6 Alcoholic cardiomyopathy; F10.10 Alcohol abuse, uncomplicated; R79.1 Abnormal coagulation profile; F19.10 Other psychoactive substance abuse, uncomplicated; E87.6 Hypokalemia; J44.9 Chronic obstructive pulmonary disease, unspecified; G47.33 Obstructive sleep apnea (adult) (pediatric); I34.0 Nonrheumatic mitral (valve) insufficiency; K70.31 Alcoholic cirrhosis of liver with ascites; I45.9 Conduction disorder, unspecified; K76.0 Fatty (change of) liver, not elsewhere classified; Z79.01 Long term (current) use of anticoagulants; Z28.310 Unvaccinated for COVID-19; Z91.199 Patient's noncompliance with other medical treatment and regimen due to unspecified reason; Z79.899 Other long term (current) drug therapy; Z71.41 Alcohol abuse counseling and surveillance of alcoholic
CPT/HCPCS: 36415; 71046; 74176; 80048; 80053; 81001; 83735; 83880; 84484; 85025; 85027; 85610; 85730; 93005; 93306; 96374; 99285

== ENCOUNTER 2023-03-15 12:13 | Emergency (ER) | payer MEDICAID ==
--- NOTE | 2023-03-15 13:39 | ED ---
Head Injury HPI - General Chief complaint: Head Injury Stated complaint: fall, head injury Time Seen by Provider: 03/15/23 13:07 Source: patient, RN notes reviewed Mode of arrival: ambulatory Limitations: no limitations - History of Present Illness Initial comments: 8-year-old male presents emergency Department chief complaint of a head injury. Patient had a trip and fall 2 days ago. Patient is on Xarelto noted strike his forehead. Patient developed bruising in the periorbital region.patient denies any neck pain no chest pain he states he has minimal pain with palpation to his forehead no significant headache no blurred vision. - Related Data Home Medications Medication Instructions Recorded Confirmed Furosemide [Lasix] 40 mg PO DAILY 12/28/22 12/28/22 Multivit-Min/FA/Lycopen/Lutein 1 tab PO DAILY 12/28/22 12/28/22 [Centrum Silver Men Tablet] Xarelto (Unknown Dose) 1 tab PO DAILY 12/28/22 12/28/22 Previous Rx's Medication Instructions Recorded Metoprolol Succinate (ER) [Toprol 50 mg PO BID 30 Days #60 tab 12/31/22 XL] Rivaroxaban [Xarelto] 20 mg PO DAILY 30 Days #30 tab 12/31/22 Sacubitril/Valsartan [Entresto 24 1 each PO BID 30 Days #60 tab 12/31/22 mg-26 mg Tablet] Allergies/Adverse reactions: Allergies Allergy/AdvReac Type Severity Reaction Status Date / Time No Known Allergies Allergy Verified 03/15/23 13:01 Review of Systems ROS Statement: Those systems with pertinent positive or pertinent negative responses have been documented in the HPI. ROS Other: All systems not noted in ROS Statement are negative. Past Medical History Past Medical History: Atrial Fibrillation, Asthma Additional Past Medical History / Comment(s): Liver disease, former etoh, heroine use, leaky valve History of Any Multi-Drug Resistant Organisms: MRSA Date of last positivie culture/infection: 2019 MDRO Source:: left foot Past Surgical History: Cholecystectomy, Hernia Repair Additional Past Surgical History / Comment(s): mesh Past Anesthesia/Blood Transfusion Reactions: No Reported Reaction Past Psychological History: Anxiety, Depression Smoking Status: Never smoker Past Alcohol Use History: None Reported Past Drug Use History: None Reported - Past Family History Father Family Medical History: COPD General Exam Limitations: no limitations General appearance: alert, in no apparent distress Head exam: Present: atraumatic, normocephalic, normal inspection Eye exam: Present: normal appearance, PERRL, EOMI. Absent: scleral icterus, conjunctival injection, periorbital swelling (Periorbital ecchymosis with no tenderness), periorbital tenderness ENT exam: Present: normal exam, mucous membranes moist Neck exam: Present: normal inspection, full ROM. Absent: tenderness, meningismus, lymphadenopathy Respiratory exam: Present: normal lung sounds bilaterally. Absent: respiratory distress, wheezes, rales, rhonchi, stridor Cardiovascular Exam: Present: regular rate, normal rhythm, normal heart sounds. Absent: systolic murmur, diastolic murmur, rubs, gallop, clicks Neurological exam: Present: alert, oriented X3, CN II-XII intact, reflexes normal. Absent: motor sensory deficit Course Vital Signs 03/15/23 13:01 Temperature 98 F Pulse Rate 84 Respiratory 18 Rate Blood Pressure 125/87 O2 Sat by Pulse 97 Oximetry Medical Decision Making - Medical Decision Making Was pt. sent in by a medical professional or institution (, PA, PHARMACOGNOSIST, urgent care, hospital, or long-term...) When possible be specific @ -No Did you speak to anyone other than the patient for history (EMS, parent, family, police, friend...)? What history was obtained from this source @ -No Did you review nursing and triage notes (agree or disagree)? Why? @ -I reviewed and agree with nursing and triage notes Were old charts reviewed (outside hosp., previous admission, EMS record, old EKG, old radiological studies, urgent care reports/EKG's, long-term records)? Report findings @ -No old charts were reviewed Differential Diagnosis (chest pain, altered mental status, abdominal pain women, abdominal pain men, vaginal bleeding, weakness, fever, dyspnea, syncope, headache, dizziness, GI bleed, back pain, seizure, CVA, palpatations, mental health, musculoskeletal)? @ -Intracranial hemorrhage, skull fracture, concussion, head injury EKG interpreted by me (3pts min.). @ -None X-rays interpreted by me (1pt min.). @ -None done CT interpreted by me (1pt min.). @ -CT brain shows no acute intrauterine cranial process questionable low- attenuation showing possibly a remote injury U/S interpreted by me (1pt. min.). @ -None done What testing was considered but not performed or refused? (CT, X-rays, U/S, labs)? Why? @ -None What meds were considered but not given or refused? Why? @ -None Did you discuss the management of the patient with other professionals (professionals i.e. Dr., PA, PHARMACOGNOSIST, lab, RT, psych nurse, social services assistant, behavioral health director, teacher, safety and security officer, caseworker)? Give summary @ -No Was smoking cessation discussed for >3mins.? @ -No Was critical care preformed (if so, how long)? @ -No Were there social determinants of health that impacted care today? How? (Homelessness, low income, unemployed, alcoholism, drug addiction, transportation, low edu. Level, literacy, decrease access to med. care, [facility], rehab)? @ -No Was there de-escalation of care discussed even if they declined (Discuss DNR or withdrawal of care, Hospice)? DNR status @ -No What co-morbidities impacted this encounter? (DM, HTN, Smoking, COPD, CAD, Cancer, CVA, ARF, Chemo, Hep., AIDS, mental health diagnosis, sleep apnea, morbid obesity)? @ -[A. fib and anticoagulants Was patient admitted / discharged? Hospital course, mention meds given and route, prescriptions, significant lab abnormalities, going to OR and other pertinent info. @ -Discharge patient CT was negative for acute process patient has no current or any recent medical issues or any strokelike symptoms. Patient updated on CT findings advised that he needs follow-up outpatient with PCP for MRI is return for any worsening change in symptoms. Patient agrees this plan. Undiagnosed new problem with uncertain prognosis? @ -No Drug Therapy requiring intensive monitoring for toxicity (Heparin, Nitro, Insulin, Cardizem)? @ -No Were any procedures done? @ -No Diagnosis/symptom? @ -Fall Acute, or Chronic, or Acute on Chronic? @ -Acute Uncomplicated (without systemic symptoms) or Complicated (systemic symptoms)? @ -Uncomplicated Side effects of treatment? @ -No Exacerbation, Progression, or Severe Exacerbation? @ -No Poses a threat to life or bodily function? How? (Chest pain, [place], [place], pneumonia, PE, COPD, DKA, ARF, appy, cholecystitis, CVA, Diverticulitis, Homicidal, Suicidal, threat to staff... and all critical care pts) @ -No Disposition Clinical Impression: Closed head injury, Contusion of scalp Disposition: HOME SELF-CARE Condition: Stable Instructions (If sedation given, give patient instructions): Head Injury (ED) Additional Instructions: Please follow-up with PCP and discuss possibility of MRI. Please return to the Emergency Department if symptoms worsen or any other concerns. Is patient prescribed a controlled substance at d/c from ED?: No Referrals: Parminder Ross MD [Primary Care Provider] - 1-2 days Time of Disposition: 14:07
--- NOTE | 2023-03-15 13:53 | CT ---
EXAMINATION TYPE: CT brain ebony erickson DATE OF EXAM: 03/15/2023 COMPARISON: None HISTORY: fall CT DLP: 1743.[address] of the brain was performed. The ventricles, basal cisterns and sulci overlying the cerebral convexities demonstrate mild/moderate enlargement. There is no evidence for intracranial hemorrhage or sulcal effacement. There is decreased attenuatio n about the periventricular white matter and deep white matter of both cerebral hemispheres, compatib le with chronic small vessel ischemia. Small focus of decreased attenuation right cerebellar hemisphere posteriorly. Extra-axial collection is seen posterior fossa measuring 9.2 x 4.1 x 6.7 cm which likely reflects an arachnoid cyst versus magna cisterna magna which is felt to be less likely. No mass effects are seen. If symptoms persist consider MRI. Osseous calvarium is intact. IMPRESSION: 1. No acute intracranial process. 2. Probable arachnoid cyst posterior fossa. 3. Small focus of decreased attenuation right cerebellar hemisphere posteriorly is of uncertain etiol ogy and could reflect a relatively recent vascular insult. Correlate clinically. CT Cervical Spine: Unenhanced CT of the cervical spine was performed with bone and soft tissue window settings submitted . Coronal and sagittal reconstruction is obtained. There is normal alignment and prevertebral soft tissues. No evidence for acute cervical fracture . Scattered degenerative disc disease and spondylosis. Biapical scarring. IMPRESSION: 1. No evidence for acute fracture or subluxation of the cervical spine.
[2023-03-15 14:43] VITALS: BP 131/91; PULSE 95; RESP 16; TEMP 98.2
== END 2023-03-15 14:45 | disposition home or self-care (01) ==
LOC: EC 12:13
DX: S00.03XA Contusion of scalp, initial encounter (principal); I48.91 Unspecified atrial fibrillation; J45.909 Unspecified asthma, uncomplicated; Z79.01 Long term (current) use of anticoagulants; Z86.59 Personal history of other mental and behavioral disorders; W01.0XXA Fall on same level from slipping, tripping and stumbling without subsequent striking against object, initial encounter
CPT/HCPCS: 70450; 72125; 99284

== ENCOUNTER 2023-11-14 08:18 | Emergency (ER) | payer MEDICAID, OTHER ==
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
[2023-11-14] MEDS: DIPH,PERTUS(ACELL)TETVAC-LF 0.5 ML VIAL IM ONE (09:05)
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
[2023-11-14 09:32] LABS: Basophils # (A) 0.1 k/uL (0-0.2); Basophils % (A) 1 %; Eosinophils # (A) 0.3 k/uL (0-0.7); Eosinophils % (A) 5 %; HCT 49.4 % (39.0-53.0); Lymphocytes # (A) 1.8 k/uL (1.0-4.8); Lymphocytes % (A) 31 %; MCHC 32.4 g/dL (31.0-37.0); MCV 95.8 fL (80.0-100.0); Mean Platelet Volume 9.4; Monocytes # (A) 0.4 k/uL (0-1.0); Monocytes % (A) 7 %; Neutrophils % (A) 54 %; Platelet Count 204 k/uL (150-450); RBC 5.16 m/uL (4.30-5.90); RDW 14.3 % (11.5-15.5); WBC 5.6 k/uL (3.8-10.6)
[2023-11-14 09:37] LABS: ALT 33 U/L (4-49); African American GFR (CKD) 89 (>60 ml/min/1.73 sqM); Alcohol <10 mg/dL; Anion Gap 8 mmol/L; Blood Urea Nitrogen 21 mg/dL (9-20); Calcium 9.6 mg/dL (8.4-10.2); Carbon Dioxide 23 mmol/L (22-30); Chloride 108 mmol/L (98-107); Glucose 110 mg/dL (74-99); Non-African American GFR(CKD) 77 (>60 ml/min/1.73 sqM); Potassium 3.9 mmol/L (3.5-5.1); Sodium 139 mmol/L (137-145); Total Bilirubin 1.1 mg/dL (0.2-1.3); Total Protein 6.9 g/dL (6.3-8.2)
[2023-11-14 09:38] LABS: AST 51 U/L (17-59); Alkaline Phosphatase 92 U/L (38-126)
[2023-11-14 09:56] VITALS: TEMP 98.4
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
[2023-11-14] MEDS: SODIUM CHLORIDE 0.9% 1,000 ML IV STA (10:21)
[2023-11-14 10:34] VITALS: RESP 18
[2023-11-14] MEDS: BACITRACIN OINT 1 EACH PACKET TOPICAL ONE (12:55)
[2023-11-14 13:02] VITALS: BP 124/76; PULSE 81
== END 2023-11-14 12:50 | disposition home or self-care (01) ==
LOC: EC 08:18
DX: S01.01XA Laceration without foreign body of scalp, initial encounter (principal); V43.52XA Car driver injured in collision with other type car in traffic accident, initial encounter; Y92.410 Unspecified street and highway as the place of occurrence of the external cause
CPT/HCPCS: 36415; 93005; 86900; 86901; 80053; 85025; 86850; 72170; 73562; 71045; 72129; 72125; 72132; 70450; 71260; 74177; 99285; 96360; 12004; G0480; Q9967; 80320

== ENCOUNTER → 2024-01-01 | Outpatient (CLI) | payer OTHER ==
[2024-01-01 19:14] LABS: HCT 48.1 % (39.6-50.0); HGB 15.5 g/dL (13.0-17.0); MCH 30.2 pg (27.0-32.0); MCHC 32.2 g/dL (32.0-37.0); MCV 93.8 FL (80.0-97.0); Mean Platelet Volume 11.5 FL (9.5-12.2); NRBC Per 100 WBC 0 X 10*3/uL (0.00-0.01); Platelet Count 125 X 10*3/uL (140-440); RBC 5.13 X 10*6/uL (4.40-5.60); RDW 15.1 % (11.5-14.5); WBC 8.02 X 10*3/uL (4.50-10.00)
[2024-01-01 19:24] LABS: Carbon Dioxide 24.1 mmol/L (21.6-31.8); Chloride 104 mmol/L (96-109); Potassium 4.6 mmol/L (3.5-5.5); Sodium 139 mmol/L (135-145)
== END | disposition home or self-care (01) ==
LOC: LABPAT 11:49
PROVIDERS: ATTEND Internal Medicine Interventional Cardiology
DX: Z01.812 Encounter for preprocedural laboratory examination (principal); I34.0 Nonrheumatic mitral (valve) insufficiency
CPT/HCPCS: 36415; 80051; 82565; 84520; 85027

== ENCOUNTER 2024-01-22 06:21 | Day surgery (SDC) | payer OTHER ==
[2024-01-20 14:40] VITALS: BMI 31.1
[~2024-01-22 06:21] MED LIST: ALPRAZolam 0.25 MG TAB PO PRN; ALPRAZolam 0.5 MG TAB PO PRN; HEPARIN SODIUM,PORCINE (1 ML) 2,500 UNIT in SODIUM CHLORIDE 0.9% 250 ML IRRIGATION PRN; HEPARIN SODIUM,PORCINE 10,000 UNIT in SODIUM CHLORIDE 0.9% 1,000 ML IRRIGATION PRN; NITROGLYCERIN SL TABS 0.4 MG TAB SUBLINGUAL PRN
[2024-01-22] MEDS: SODIUM CHLORIDE 0.9% 1,000 ML in EMPTY BAG 1 BAG IV SCH (06:46)
[2024-01-22] MEDS: ASPIRIN 325 MG TAB PO STA (06:46)
[2024-01-22] MEDS: IV FLUID CONTINUATION 1,000 ML IV ONE ×2 (06:50→07:34)
[2024-01-22 07:09] VITALS: RESP 16; TEMP 98
[2024-01-22 07:20] LABS: Basophils # (A) 0.1 k/uL (0-0.2); Basophils % (A) 2 %; Eosinophils # (A) 0.3 k/uL (0-0.7); Eosinophils % (A) 5 %; HCT 48.3 % (39.0-53.0); HGB 16.2 gm/dL (13.0-17.5); Lymphocytes # (A) 2.1 k/uL (1.0-4.8); Lymphocytes % (A) 37 %; MCH 30.9 pg (25.0-35.0); MCHC 33.5 g/dL (31.0-37.0); MCV 92.2 fL (80.0-100.0); Mean Platelet Volume 7.8; Monocytes # (A) 0.5 k/uL (0-1.0); Monocytes % (A) 9 %; Neutrophils # (A) 2.5 k/uL (1.3-7.7); Neutrophils % (A) 45 %; Platelet Count 213 k/uL (150-450); RBC 5.24 m/uL (4.30-5.90); RDW 14.5 % (11.5-15.5); WBC 5.6 k/uL (3.8-10.6)
[2024-01-22] MEDS ORDERED: HEPARIN SODIUM 1,000 UN/ML (10ML VL) ONE (07:27)
[2024-01-22] MEDS ORDERED: fentaNYL (PF) 50 MCG/ML 2 ML AMP ONE (07:27)
[2024-01-22] MEDS ORDERED: VERAPAMIL 2.5 MG/ML 2 ML AMP ONE (07:27)
[2024-01-22] MEDS ORDERED: LIDOCAINE 1% INJ 10MG/ML (20 ML MDV) ONE (07:28)
[2024-01-22] MEDS: BENZOCAINE SPRAY 1 CAN TOPICAL ONE (07:30)
[2024-01-22] MEDS: MIDAZOLAM 2 MG/2 ML VIAL IVP ONE ×2 (07:33→07:35)
[2024-01-22] MEDS: fentaNYL (PF) 50 MCG/ML 2 ML AMP IVP ONE (07:33)
--- NOTE | 2024-01-22 07:54 | P.PCN ---
Date of Procedure: 01/22/24 Description of Procedure: Indication: Mitral regurgitation Procedure Description: After explaining the procedure to the patient, it's risk and complications, blood pressure, heart rate and O2 saturation were monitored. The throat was sprayed with Cetacaine. Patient received 3 mg intravenous Versed, 50 mcg intravenous fentanyl. The probe was introduced into the esophagus without difficulty. Images were obtained. Following that, the probe was removed. There was no immediate complication. Findings: Left atrial size is dilated, left atrial appendage is normal. The left ventricle systolic function severely impaired with global hypokinesis. Ejection fraction is estimated at 15 to 20%. The aortic valve, mitral valve and tricuspid valve are normal. The pulmonic valve is normal. Descending thoracic aorta revealed no atherosclerosis. No pericardial fusion was noted. Contrast bubble study revealed no shunting across the interatrial septum. The right ventricle appears to be hypokinetic. Doppler: Pulse wave and color Doppler were obtained, and revealed moderate mitral and tricuspid regurgitation with significant [id number] shunting through a patent foramen ovale. Conclusion: 1. Dilated left atrium with normal appearance of the left atrial appendage 2. Severe global hypokinesis of the left ventricle with hypokinetic right ventricle 3. Moderate mitral and tricuspid regurgitation 4. Patent foramen ovale with significant [id number] shunting and no reversal of flow with contrast bubble study 5. No pericardial effusion
[2024-01-22] MEDS: LIDOCAINE 1% INJ 10MG/ML (20 ML MDV) SQ ONE (08:00)
[2024-01-22] MEDS: HEPARIN SODIUM 1,000 UN/ML (10ML VL) IV ONE (08:19)
[2024-01-22 08:25] LABS: O2 Sat Blood Gas 77.7 %
[2024-01-22 08:26] LABS: O2 Sat Blood Gas 98.4 %
[2024-01-22 08:28] LABS: O2 Sat Blood Gas 66.5 %
[2024-01-22] MEDS: IOPAMIDOL-370 100ML BTL INJ ONE (08:30)
[2024-01-22] MEDS ORDERED: RX INFO: IV CONTRAST WAS GIVEN 1 EACH MISC MISCELLANE PRN (08:35)
--- NOTE | 2024-01-22 08:43 | P.CARDCATH ---
Date of Procedure: 01/22/24 Description of Procedure: Cardiac Catheterization: The patient is a 63-year-old male who was diagnosed with atrial fibrillation over a year ago and has not followed and presented recently with symptoms of dyspnea and evidence of severe cardiomyopathy with moderate to severe mitral regurgitation. Recommendations were made regarding cardiac catheterization, the risks and the complications were discussed with the patient who is in full understanding and agreement. Procedure Description: Patient was brought to [facility] in fasting semi-sedated state after receiving Fentanyl and Benadryl achieiving moderate conscious sedated state. Using Xylocaine Anesthesia and modified Seldinger technique, a 6-Dutch sheath was introduced in the right radial artery . The venous access in the right basilic vein was exchanged to a 6 Dutch sheath. Right heart catheterization was performed using a [employer] [place] catheter. Multiple pressure and samples were obtained cardiac output by thermodilution was performed. Subsequently, selective coronary angiography was performed using a 5-Dutch 3.5 bend Alpesh catheter. Multiple views of the coronary artery including hemiaxial views were obtained. The 5 Dutch pigtail catheter was used to cross the aortic valve and LVEDP was calculated. Following that, catheter and sheath were removed. Hemostasis was obtained with deployment of vascular band . There was no immediate complication. Patient was returned to room in stable condition. Of note, the patient received a total of 5000 units of intravenous heparin as well as intra-arterial verapamil. Findings: Left main: This is a short size vessel, bifurcating into LAD and left circumflex, left main has no obstructive disease LAD: This is a large size vessel, reaching to the apex with a wraparound apex segment giving rise to 2 diagonal branch of moderate caliber the left interesting artery and its branches have no obstructive disease. Left circumflex: This is a large nondominant vessel giving rise to a large obtuse marginal branch, the left circumflex and its branches have no obstructive disease RCA: This is a large dominant vessel, bifurcating into PDA and PLV, the RCA has no obstructive disease Left Ventriculogram: Not performed Hemodynamics: Pulmonary artery systolic pressure of 32 with an end-diastolic of 16 and a mean of 20 mmHg, pulmonary capillary wedge pressure V wave of 16 with a mean of 16 mmHg, right ventricular systolic pressure of 32 with an end-diastolic of 5 mmHg right atrium V wave of 4 with a mean of 2 mmHg. There was no gradient across the aortic valve, left ventricle end-diastolic pressure 8 to 10 mmHg. Cardiac output by thermodilution 7.5 L/min. Cardiac by Dio of 5.4 L/min. Right atrial saturation 67% pulmonary artery saturation 78%, radial artery saturation 98%. Conclusion: 1. Normal coronary arteries 2. Right dominance 3. No evidence of pulmonary hypertension Recommendations: The patient will continue on present therapy. And will be evaluated to restore sinus mechanism to see if there is any improvement in his left ventricle systolic function. The findings and the recommendations were discussed with the patient and the family and they were in full understanding and agreement. Duration of sedation is 25 minutes.
[2024-01-22] MEDS ORDERED: SODIUM CHLORIDE 0.9% 1,000 ML IV SCH (08:45)
[2024-01-22] MEDS ORDERED: METOPROLOL SUCCINATE (ER) 50 MG TAB.ER.24H PO SCH (09:00)
[2024-01-22] MEDS ORDERED: SACUBITRIL/VALSARTAN 24 MG-26 MG TABLET PO SCH (09:00)
[2024-01-22] MEDS ORDERED: NON FORMULARY DRUG (Empagliflozin [Jardiance] 10 MG Tablet) PO SCH (09:00)
[2024-01-22 12:11] VITALS: BP 118/72; PULSE 78
[2024-01-22 16:26] LABS: Hepatitis B Surface Antigen Nonreactive (Nonreactive); Hepatitis C IgG Antibody Nonreactive (Nonreactive)
== END 2024-01-22 12:00 | disposition home or self-care (01) ==
LOC: CATHCVL 06:21
PROVIDERS: ATTEND Internal Medicine Interventional Cardiology
DX: I08.1 Rheumatic disorders of both mitral and tricuspid valves (principal); Q21.12 Patent foramen ovale; I42.9 Cardiomyopathy, unspecified; G47.33 Obstructive sleep apnea (adult) (pediatric); I27.82 Chronic pulmonary embolism; I10 Essential (primary) hypertension; Z79.01 Long term (current) use of anticoagulants; Z79.899 Other long term (current) drug therapy
CPT/HCPCS: 93312; 93320; 93325; 93460; 86803; 86701; 85018; 82810; 85025; 87340; C1769 ×2; C1894; C1751; J2250; J2001; J3010; J1644; Q9967

== ENCOUNTER → 2024-02-22 | Outpatient (CLI) | payer OTHER ==
[2024-02-22 12:37] LABS: HCT 47.5 % (39.6-50.0); HGB 15.9 g/dL (13.0-17.0); MCH 30.3 pg (27.0-32.0); MCHC 33.5 g/dL (32.0-37.0); MCV 90.6 FL (80.0-97.0); Mean Platelet Volume 10.5 FL (9.5-12.2); NRBC Per 100 WBC 0 X 10*3/uL (0.00-0.01); Platelet Count 120 X 10*3/uL (140-440); RBC 5.24 X 10*6/uL (4.40-5.60); RDW 14.6 % (11.5-14.5); WBC 5.97 X 10*3/uL (4.50-10.00)
[2024-02-22 12:56] LABS: ALT 30 U/L (10-49); AST 25 U/L (14-35); Albumin 4.4 g/dL (3.8-4.9); Alkaline Phosphatase 111 U/L (41-126); BUN/Creat Ratio 11.33 Ratio (12.00-20.00); Blood Urea Nitrogen 13.6 mg/dL (9.0-27.0); Calcium 9.7 mg/dL (8.7-10.3); Carbon Dioxide 23.8 mmol/L (21.6-31.8); Chloride 102 mmol/L (96-109); Chol/HDL Ratio 2.03 Ratio; Globulin 2.1 g/dL (1.6-3.3); Glucose 111 mg/dL (70-110); LDL Cholesterol,Calculated 75.6 mg/dL (0.0-131.0); Potassium 4.4 mmol/L (3.5-5.5); Prostate Specific Antigen 6.16 ng/mL (0.000-4.500); Sodium 137 mmol/L (135-145); Total Protein 6.5 g/dL (6.2-8.2); VLDL Calculation 10.02 mg/dL (5.00-40.00)
== END | disposition home or self-care (01) ==
LOC: LABWHC1 07:45
PROVIDERS: ATTEND Family Medicine
DX: Z00.01 Encounter for general adult medical examination with abnormal findings (principal)
CPT/HCPCS: 36415; 80053; 80061; 84153; 85027

== ENCOUNTER → 2024-05-08 | Outpatient (CLI) | payer OTHER ==
[~2024-05-08] MED LIST changes: -ALPRAZolam 0.25 MG TAB PO PRN; -ALPRAZolam 0.5 MG TAB PO PRN; -HEPARIN SODIUM,PORCINE (1 ML) 2,500 UNIT in SODIUM CHLORIDE 0.9% 250 ML IRRIGATION PRN; -HEPARIN SODIUM,PORCINE 10,000 UNIT in SODIUM CHLORIDE 0.9% 1,000 ML IRRIGATION PRN; +IODINE/POTASSIUM IODIDE 14 ML BOTTLE ONE; -NITROGLYCERIN SL TABS 0.4 MG TAB SUBLINGUAL PRN
--- NOTE | 2024-05-11 23:18 | NM ---
EXAMINATION TYPE: NM DatScan Brain SPECT DATE OF EXAM: 05/08/2024 COMPARISON: NONE CLINICAL INDICATION: Male, 63 years old with history of R25.1 TREMOR, UNSPECIFIED; TECHNIQUE: 10 drops of Lugol's solution was administered 1 hour prior to injection as a thyroid bloc silas agent. After the administration of 4.6 mCi I-123 Ioflupane DaTscan. Images obtained [address] injection. SPECT images of the brain were acquired with axial and coronal reconstructions. FINDINGS: The DaTSCAN demonstrates significantly reduced uptake of tracer to the right striatum. IMPRESSION: This indicates the loss of the pre-synaptic dopaminergic terminals and is usually supportive of a clinical diagnosis of either idiopathic PD or PS. However, given the marked asymmetry of the two sides, an MRI is recommend ed to ensure that this appearance is not due to a vascular etiology affecting the right-sided putamen or the right sudhir-striatal pathways. [facility], , 05/11/2024 11:15 PM
== END | disposition home or self-care (01) ==
LOC: RADNMMAIN 09:51
PROVIDERS: ATTEND Psychiatry & Neurology Neurology
DX: R25.1 Tremor, unspecified (principal)
CPT/HCPCS: 78803

== ENCOUNTER 2024-05-27 07:19 | Day surgery (SDC) | payer OTHER ==
[~2024-05-27 07:19] MED LIST changes: -IODINE/POTASSIUM IODIDE 14 ML BOTTLE ONE; +LACTATED RINGERS 1,000 ML IV SCH; +LIDOCAINE 1% (10MG/ML) FOR IV START INTRADERMA PRN
[2024-05-27] MEDS: IV FLUID CONTINUATION 1,000 ML IV ONE ×2 (07:49)
[2024-05-27 08:15] LABS: Glucose,Whole Blood 106 mg/dL (70-110)
[2024-05-27 08:16] VITALS: RESP 16; TEMP 98
[2024-05-27] MEDS ORDERED: PROPOFOL 10 MG/ML 20 ML VIAL IV ONE (08:31)
--- NOTE | 2024-05-27 09:01 | P.PCN ---
Date of Procedure: 05/27/24 Procedure(s) Performed: BRIEF HISTORY: Patient is a 63-year-old pleasant white male scheduled for an elective colonoscopy as a part of screening for colon cancer. PROCEDURE PERFORMED: Colonoscopy with snare polypectomy, biopsy and tattooing with Kandice ink. PREOPERATIVE DIAGNOSIS: Screening for colon cancer. IV sedation per Anesthesia. PROCEDURE: After informed consent was obtained, the patient, was brought into the endoscopy unit. IV sedation was administered by Anesthesia under continuous monitoring. Digital rectal examination was normal. Initially the Olympus CF-160 flexible video colonoscope was then inserted in the rectum, gradually advanced into the cecum without any difficulty. Careful examination was performed as the scope was gradually being withdrawn. Ileocecal valve and the appendiceal orifice were visualized and appeared normal. Prep was excellent. Mucosa of the cecum, ascending colon appeared normal. The hepatic flexure there was a 2 cm slightly raised polypoid lesion identified and part of it was removed by snare polypectomy. Despite multiple attempts I was not able to remove the rest of the polyp by snare and hence multiple biopsies were performed following this tattooing was done with Kandice ink. Rest of the, transverse colon, descending colon, sigmoid colon, and rectum appeared normal. Retroflexion was performed in the rectum and no lesions were seen. The patient tolerated the procedure well. IMPRESSION: 2 cm slightly raised polypoid lesion in the hepatic flexure status post partial snare polypectomy followed by biopsies and tattooing with Kandice ink Rest of the colon appeared normal RECOMMENDATIONS: Findings of this examination were discussed with the patient as well as his family. He was advised to follow-up with the biopsy results. He will be seen in the office in 1 week..
[2024-05-27 09:20] VITALS: BP 104/65; PULSE 72
== END 2024-05-27 10:10 | disposition home or self-care (01) ==
LOC: ORWHC2ENDO 07:19
PROVIDERS: ATTEND Internal Medicine Gastroenterology
CPT/HCPCS: 45380; 45381; 45385; 88305

== ENCOUNTER → 2024-07-07 | Outpatient (CLI) | payer OTHER ==
[2024-07-07 15:15] LABS: Blood Urea Nitrogen 18.1 mg/dL (9.0-27.0); Carbon Dioxide 22.7 mmol/L (21.6-31.8); Chloride 103 mmol/L (96-109); Potassium 4.3 mmol/L (3.5-5.5); Sodium 136 mmol/L (135-145)
[2024-07-07 16:22] LABS: HCT 46.8 % (39.6-50.0); HGB 15.7 g/dL (13.0-17.0); MCH 30.7 pg (27.0-32.0); MCHC 33.5 g/dL (32.0-37.0); MCV 91.6 FL (80.0-97.0); Mean Platelet Volume 10.5 FL (9.5-12.2); NRBC Per 100 WBC 0 X 10*3/uL (0.00-0.01); Platelet Count 138 X 10*3/uL (140-440); RBC 5.11 X 10*6/uL (4.40-5.60); RDW 13.1 % (11.5-14.5); WBC 7.54 X 10*3/uL (4.50-10.00)
== END | disposition home or self-care (01) ==
LOC: LABPAT 12:19
PROVIDERS: ATTEND Internal Medicine Clinical Cardiac Electrophysiology
DX: Z01.812 Encounter for preprocedural laboratory examination (principal); I48.0 Paroxysmal atrial fibrillation
CPT/HCPCS: 80051; 82565; 84520; 85027

== ENCOUNTER 2024-07-09 13:06 | Day surgery (SDC) | payer OTHER ==
[2024-07-07 11:42] VITALS: BMI 30.9
[~2024-07-09 13:06] MED LIST changes: -LACTATED RINGERS 1,000 ML IV SCH; -LIDOCAINE 1% (10MG/ML) FOR IV START INTRADERMA PRN; +SODIUM CHLORIDE 0.9% 1,000 ML IV SCH
[2024-07-09] MEDS: IV FLUID CONTINUATION 1,000 ML IV ONE (14:25)
[2024-07-09] MEDS ORDERED: PHENYLEPHRINE 10 MG/ML VIAL ONE (14:55)
[2024-07-09] MEDS ORDERED: HEPARIN SODIUM,PORCINE 5,000 UNIT/ML 1 ML VIAL ONE (14:55)
[2024-07-09] MEDS ORDERED: MIDAZOLAM 2 MG/2 ML VIAL ONE (14:55)
[2024-07-09] MEDS ORDERED: ETOMIDATE 2 MG/ML 10 ML VIAL ONE (14:55)
[2024-07-09] MEDS ORDERED: ePHEDrine 50 MG/ML 1 ML VIAL ONE (14:55)
[2024-07-09] MEDS ORDERED: SUCCINYLCHOLINE CHLORIDE 200 MG/10 ML VIAL IV ONE (14:55)
[2024-07-09] MEDS ORDERED: LIDOCAINE 4% LTA KIT (4 ML) TOPICAL ONE (14:55)
[2024-07-09] MEDS ORDERED: LIDOCAINE 1% INJ 10MG/ML (20 ML MDV) ONE (14:55)
[2024-07-09] MEDS ORDERED: HEPARIN SODIUM,PORCINE 10,000 UNIT/ML 1 ML VIAL ONE (14:55)
[2024-07-09] MEDS ORDERED: fentaNYL (PF) 50 MCG/ML 2 ML AMP ONE (14:55)
[2024-07-09] MEDS ORDERED: PROPOFOL 10 MG/ML 20 ML VIAL IV ONE (14:55)
--- NOTE | 2024-07-09 15:08 | P.HPCAR ---
History of Present Illness This is Dr. Flores dictating an H/P on this patient The patient was interviewed and examined IMPRESSION / ASSESSMENT: Persistent atrial fibrillation, symptomatic Associated cardiomyopathy, biventricular in nature Moderate MR moderate TR On guideline directed medical treatment Failed medical treatment for atrial fibrillation Prior A-fib ablation at [facility] in 2017 Past history of pulmonary embolism on 2 occasions Normal coronary arteries PLAN: A-fib ablation Continue anticoagulation lifelong HPI Patient remains in atrial fibrillation He has not had any further CHF exacerbations or hospitalizations He complains of tiredness fatigue lack of energy ROS: No fever chills or rigors, no cough, phlegm or expectoration, no nausea, vomiting or diarrhea, no hematuria, dysuria, no musculoskeletal complaints, no strokes or seizures, no skin lesions. EXAMINATION: No JVD No lower extremity edema Trophic changes in the lower extremities Heart sounds are irregular rates are controlled Breath sounds are clear no rhonchi no crackles REVIEW OF LABS, ECG & MEDICAL DATA Medications include Jardiance metoprolol spironolactone Entresto and Xarelto Recent white count 7.5 thousand Hemoglobin 15.7 g/dL Platelet count 138,000 Sodium 136, potassium 4.3 BUN 18 and creatinine 1.2 Magnesium 2.1 Physical Exam Vitals: Intake and Output 07/09/24 07/09/24 07/09/24 06:59 14:59 22:59 Intake Total 50 Balance 50 Intake: IV 50 Past Medical History Past Medical History: Atrial Fibrillation, Asthma, Cancer, Hypertension, Prostate Disorder, Pulmonary Embolus (PE), Sleep Apnea/CPAP/BIPAP Additional Past Medical History / Comment(s): Liver disease,r/t former etoh, heroine use, POSSIBLE leaky valve, PE 2016, hxSKIN CANCER-BASAL CELL. BPH to have Bx , cpap. begining of essential tremors. History of Any Multi-Drug Resistant Organisms: MRSA Date of last positivie culture/infection: 2019 MDRO Source:: left foot Past Surgical History: Cardiac Ablation, Cholecystectomy, Hernia Repair Additional Past Surgical History / Comment(s): mesh, REMOVAL BASAL CELL SPOTS FROM HEAD AND BACK, CARDIOVERSION Past Anesthesia/Blood Transfusion Reactions: No Reported Reaction Additional Past Anesthesia/Blood Transfusion Reaction / Comment(s): No hx of blood transfusion to date. Additional Psychological History / Comment(s): UNDER CONTROL AT THIS TIME Smoking Status: Former smoker Additional Past Alcohol Use History / Comment(s): QUIT SMOKING OVER 30 YEARS AGO. HAS BEEN 1 YEAR ALCOHOL FREE - Past Family History Father Family Medical History: COPD Additional Family Medical History / Comment(s): Aortic leak/fixed. CABG. Brother(s) Family Medical History: Coronary Artery Disease (CAD) Physical Examination Intake and Output 07/09/24 07/09/24 07/09/24 06:59 14:59 22:59 Intake Total 50 Balance 50 Intake: IV 50 Results Current Medications Generic Name Dose Route Start Last Admin Trade Name Freq PRN Reason Stop Dose Admin Sodium Chloride 1,000 mls @ 20 mls/hr 07/09/24 06:19 Saline 0.9% IV 08/08/24 06:18 .Q24H YADI Intake and Output 07/09/24 07/09/24 07/09/24 06:59 14:59 22:59 Intake Total 50 Balance 50 Intake: IV 50
[2024-07-09] MEDS: HEPARIN SOD,PORK IN 0.45% NACL 25,000 UNIT in 0.45% NACL 1 250ML.BAG IV ONE (15:20)
[2024-07-09] MEDS: LIDOCAINE 1% INJ 10MG/ML (20 ML MDV) SQ ONE (15:31)
[2024-07-09] MEDS: IOPAMIDOL-370 100ML BTL INJ ONE (17:46)
[2024-07-09] MEDS: HEPARIN SODIUM (1,000 UNIT/ML) 1,000 UNIT in SODIUM CHLORIDE 0.9% 1,000 ML IRRIGATION ONE (17:47)
[2024-07-09] MEDS ORDERED: ACETAMINOPHEN TAB 325 MG TAB PO PRN (18:03)
--- NOTE | 2024-07-09 18:09 | P.EPPROC ---
- EP Procedure Note Electrophysiology Procedure Note: PROCEDURE A. fib ablation with PVI, left atrial septal ablation and left atrial roof ablation/ablation of the posterior wall, intervenous posterior DIAGNOSIS Persistent longstanding atrial fibrillation, symptomatic, refractory to therapy, reduced LV systolic function RESULT No left atrial appendage mass seen on intracardiac echo, large left atrial appendage, large left atrium Mildly thickened pericardium without effusion Reduced LV systolic function on intracardiac echo Successful A. fib ablation/pulmonary vein isolation of all veins using cryo- ablation Complete entrance block in all 4 veins confirmed No evidence for phrenic nerve injury Esophageal deflection YES Left atrial roof ablation Left atrial septal ablation Electrical cardioversion with a synchronized shock across the chest YES PROCEDURE DETAILS Written informed consent prior to procedure. Patient brought to the EP lab. General anesthesia given. Heparin administered. A city maintained above 300 seconds Both groins prepped and draped per protocol and venous sheaths placed. Esophagus intubated, circa catheter for temperature monitoring an endoscope for possible esophageal deflection. Phrenic nerve monitoring performed. Esophageal temperature monitoring performed. Esophageal deflection performed if circa catheter overlapping with the balloon or circa temperature less than 27.5C Intracardiac echocardiography performed. Pericardium evaluated. Left atrial appendage evaluated. Left atrium evaluated along with pulmonary veins Transseptal catheterization performed under fluoroscopic guidance and intracardiac echo guidance Cryoablation sheath exchanged, balloon catheter along with achieve catheter placed in the left atrium. Pulmonary veins isolated in the following sequence: Left superior pulmonary vein followed by left inferior pulmonary vein, followed by right inferior pulmonary vein and lastly right superior pulmonary vein. Phrenic nerve stimulation along with capture thresholds within the SVC and right superior pulmonary vein to identify the phrenic nerve proximity to the cryo- balloon. Pulmonary veins isolated and confirmed with entrance and exit block. Phrenic nerve integrity confirmed at the end of the procedure Ablation of the left atrial roof performed with sequential lesions from the left superior to the right superior pulmonary veins. Ablation of the electrograms confirmed Ablation of the left atrial septum performed with cannulation of the superior branch of the right inferior and the inferior branch of the right superior vein to achieve ablation of the posterior septum of the left atrium. Ablation of electrograms confirmed Electrical cardioversion performed for persistence of atrial fibrillation despite successful ablation. Diagnostic catheters for the high right atrium, His bundle, coronary sinus placed. LA and RA pressures recorded RA pressure: 13/2/8 LA pressure: 15/2/7 Diagnostic EP study with coronary sinus pacing and recording following successful electrical cardioversion Baseline measurements: Sinus cycle length 943 ms, OK interval 187 ms, QRS 123 ms and QT 483 ms AH 78 and HV 48 ms Venous sheaths were removed and hemostasis assured with a closure device. Patient extubated and transferred to recovery Increase procedural time During ablation multiple attempts had to be made to move the esophagus a safe distance of the from the pulmonary vein draining cryoablation, to avoid excessive thermal cooling of the esophagus This took extra time and effort to keep the esophagus a safe distance away from the cryoablation balloon. Very large pulmonary veins especially right superior which required additional ablation as well as left inferior which also required additional ablations Very large left atrium and a very long left atrial roof. The left atrial roof and the entire venous posterior wall underwent successful ablation Patient also had a right middle pulmonary vein which was successfully ablated PROCEDURES PERFORMED Diagnostic EP study CS pacing and recording Left and right transseptal catheterization Catheter the mapping of the tachycardia Intracardiac echocardiography Pulmonary vein isolation with transseptal and comprehensive EPS, [id number] Extended procedure duration Left atrial roof line, [id number] Linear ablation, left atrium, septum, [id number] Electrical cardioversion with a synchronized shock across the chest [id number]
[2024-07-09] MEDS: ACETAMINOPHEN IV (For NPO) 1,000 MG in EMPTY BAG 1 BAG IVPB ONE (20:17)
[2024-07-09] MEDS: SACUBITRIL/VALSARTAN 49 MG-51 MG TABLET PO SCH (20:19)
[2024-07-09] MEDS: METOPROLOL SUCCINATE (ER) 50 MG TAB.ER.24H PO SCH (20:19)
[2024-07-10 03:53] LABS: Basophils # (A) 0.1 k/uL (0-0.2); Basophils % (A) 1 %; Eosinophils # (A) 0.3 k/uL (0-0.7); Eosinophils % (A) 3 %; HCT 46.8 % (39.0-53.0); HGB 15.3 gm/dL (13.0-17.5); Lymphocytes # (A) 1.6 k/uL (1.0-4.8); Lymphocytes % (A) 19 %; MCH 31.4 pg (25.0-35.0); MCHC 32.7 g/dL (31.0-37.0); MCV 95.9 fL (80.0-100.0); Mean Platelet Volume 7.4; Monocytes # (A) 0.6 k/uL (0-1.0); Monocytes % (A) 7 %; Neutrophils # (A) 5.9 k/uL (1.3-7.7); Neutrophils % (A) 69 %; Platelet Count 170 k/uL (150-450); RBC 4.88 m/uL (4.30-5.90); RDW 13.4 % (11.5-15.5); WBC 8.5 k/uL (3.8-10.6)
[2024-07-10 04:05] LABS: African American GFR (CKD) >90 (>60 ml/min/1.73 sqM); Anion Gap 3 mmol/L; Blood Urea Nitrogen 16 mg/dL (9-20); Calcium 8.9 mg/dL (8.4-10.2); Carbon Dioxide 22 mmol/L (22-30); Chloride 109 mmol/L (98-107); Glucose 104 mg/dL (74-99); Non-African American GFR(CKD) >90 (>60 ml/min/1.73 sqM); Potassium 4.1 mmol/L (3.5-5.1); Sodium 134 mmol/L (137-145)
[2024-07-10 07:17] VITALS: BP 104/67; PULSE 67; RESP 16; TEMP 98.1
--- NOTE | 2024-07-10 07:36 | P.DS ---
Providers Attending physician: Keith Flores Primary care physician: [facility] Course: Patient is lying comfortably in bed. No chest discomfort. Mild sore throat No JVD No lower extremity edema No groin hematoma swelling or pain Heart sounds S1-S2 normal Clear lungs no rhonchi no crackles Impression Longstanding persistent atrial fibrillation, failed prior therapy Status post PVI, left atrial septal ablation, left atrial ridge ablation and left atrial roof/posterior wall-interPV QRS width 120 ms, normal HV interval Known cardiomyopathy Plan Continue cardiomyopathy medications Continue Eliquis uninterrupted Follow-up with Dr. Roa in a week transfer [facility] Plan - Discharge Summary Discharge Rx Participant: No New Discharge Prescriptions: No Action Empagliflozin [Jardiance] 10 mg PO QAM Sacubitril/Valsartan [Entresto 49 mg-51 mg Tablet] 2 each PO BID Spironolactone 25 mg PO QAM Fluticasone/Umeclidin/Vilanter [Trelegy Ellipta 100-62.5-25] 1 puff INHALATION DAILY Metoprolol Succinate (ER) [Toprol XL] 50 mg PO BID 30 Days #60 tab Albuterol Sulfate [Albuterol Sulfate Hfa] 2 puff INHALATION RT-Q4H PRN PRN Reason: Shortness Of Breath Rivaroxaban [Xarelto] 20 mg PO 1800 Unk Fish Oil 1 tab PO QAM Discharge Medication List Metoprolol Succinate (ER) [Toprol XL] 50 mg PO BID 30 Days #60 tab 12/31/22 [Rx] Albuterol Sulfate [Albuterol Sulfate Hfa] 2 puff INHALATION RT-Q4H PRN 11/14/23 [History] Empagliflozin [Jardiance] 10 mg PO QAM 01/20/24 [History] Rivaroxaban [Xarelto] 20 mg PO 1800 01/20/24 [History] Sacubitril/Valsartan [Entresto 49 mg-51 mg Tablet] 2 each PO BID 05/26/24 [History] Spironolactone 25 mg PO QAM 05/26/24 [History] Unk Fish Oil 1 tab PO QAM 05/26/24 [History] Fluticasone/Umeclidin/Vilanter [Trelegy Ellipta 100-62.5-25] 1 puff INHALATION DAILY 07/07/24 [History] Follow up Appointment(s)/Referral(s): Irene Roa MD [STAFF PHYSICIAN] - 1 Week (Remove groin sutures prior to discharge) Activity/Diet/Wound Care/Special Instructions: Post EP study - Ablation instructions 1. Keep access sites dry for 2 days. 2. No heavy lifting or straining for 2 days. 3. Avoid bending the hips repeatedly for 2 days. 4. You may go up and down stairs slowly 5. If you have had an ablation for atrial fibrillation or atrial flutter and are on a blood thinner, do not stop the blood thinner even temporarily for 3 months post ablation Call if the following is noted 1. Bleeding, increasing swelling or pain at the access sites. 2. Increasing chest discomfort, especially upon taking a deep breath. 3. Increasing shortness of breath, at rest or with exertion. 4. Undue cough / phlegm 5. Difficulty or pain while swallowing. 6. Pain or change in color in the extremities. 7. Fever, chills, rigors. 8. Increasing headache or neurologic symptoms. 9. Dizziness, fainting, palpitations Do not stop Xarelto temporarily for 1 to 2 days for any minor procedure for the next 2 months. This is a strict instruction Continue all other cardiac medications Discharge Disposition: HOME SELF-CARE
[2024-07-10] MEDS: SPIRONOLACTONE 25 MG TAB PO SCH (08:20)
[2024-07-10] MEDS ORDERED: RIVAROXABAN 20 MG TAB PO SCH (18:00)
== END 2024-07-10 12:40 | disposition home or self-care (01) ==
LOC: CATHEP 13:06 → 6NMEDSUR 17:50 → CATHEP 07-10 12:40
PROVIDERS: ATTEND Internal Medicine Clinical Cardiac Electrophysiology
DX: I48.11 Longstanding persistent atrial fibrillation (principal); G25.0 Essential tremor; I10 Essential (primary) hypertension; I42.9 Cardiomyopathy, unspecified; J45.909 Unspecified asthma, uncomplicated; N40.0 Benign prostatic hyperplasia without lower urinary tract symptoms; G47.30 Sleep apnea, unspecified; Z79.01 Long term (current) use of anticoagulants; Z79.84 Long term (current) use of oral hypoglycemic drugs; Z86.711 Personal history of pulmonary embolism; Z87.891 Personal history of nicotine dependence; Z90.49 Acquired absence of other specified parts of digestive tract; Z98.890 Other specified postprocedural states; Z79.899 Other long term (current) drug therapy
CPT/HCPCS: 92960; 93656; 93657; 80048; 84443; 85025; C1894; C1769; C1760; C1730 ×2; C1731; C1759; C1733; C1766; C1732; J2003; J1644 ×2; J0131; Q9967

== ENCOUNTER → 2024-08-03 | Outpatient (CLI) | payer OTHER ==
[2024-08-03 11:52] VITALS: BP 110/70; PULSE 80; RESP 16; TEMP 98
--- NOTE | 2024-08-03 12:21 | P.SLEEP ---
History of Present Illness DATE: 08/03/2024 CONSULTATION/NEW PATIENT EVALUATION HISTORY OF PRESENT ILLNESS/SLEEP-WAKE EVALUATION: 63-year-old gentleman had been evaluated in the sleep center for obstructive sleep apnea hypopnea syndrome. Patient have been diagnosed with obstructive sleep apnea hypopnea syndrome in 2016, but did not use CPAP equipment for several years, his CPAP unit is old and noisy . SLEEP SCHEDULE: Usually sleep schedule 9 PM to 4 AM. FALLING ASLEEP: No problems with falling asleep. DURING SLEEP: Patient snores, has episodes of stop breathing during the sleep, awakenings several times with dry mouth and nocturia. No history of hypnogogical hallucinations, sleep paralysis, or cataplexy. DURING THE DAY/WAKE STATE: In the morning patient wake up tired, has difficulties to pay attention, has problems with memory and concentration. [place] sleepiness scale is 3. Patient take nap at 10 AM. PAST MEDICAL HISTORY: Atrial fibrillation with status after recent cardiac ablation, asthma, depression. PAST SURGICAL HISTORY: Cholecystectomy. MEDICATIONS: Have been reviewed, please see below. SOCIAL HISTORY: Please see below. FAMILY HISTORY: Please see below. REVIEW OF SYSTEMS: Snoring, awakenings from sleep. No fevers. No double vision. No recent chest pain. No shortness of breath. No abdominal pain. No bleeding episodes. No blood in urine. No seizure episodes. PHYSICAL EXAMINATION: GENERAL: A pleasant patient without any distress. VITAL SIGNS: Please see below, weight 271 pounds, BMI 31.7. HEENT: PERRLA, EOMI. Evaluation of oropharynx showed tongue protrudes midline, low position of soft palate Mallampati 4. NECK: Supple. No JVD. Thyroid is not palpable. 16-1/4 inches in circumference. LUNGS: Clear to percussion and to auscultation. Good air exchange. No wheezing or rhonchi. HEART: S1, S2 regular. No murmurs, gallops or rubs. ABDOMEN: Soft and nontender. Bowel sounds are present. No organomegaly appreciated. EXTREMITIES: No clubbing or cyanosis. PLATE CUTTER: Awake, alert, and oriented x3. Cranial nerves 2 to 7 intact. There is no fasciculation or atrophy noted. No focal deficits observed. ASSESSMENT: 1. Snoring, episodes of stop breathing during the sleep, extremely low position of soft palate Mallampati 4, wide neck 16-1/4 inches in circumference, history of obstructive sleep apnea in the past. Obstructive sleep apnea hypopnea syndrome. 2. Mild obesity, BMI 31.7. 3. History of atrial fibrillation, status post recent cardiac ablation. 4. History of asthma. 5 history of depression. 6 . Status post cholecystectomy. PLAN: 1. Polysomnography for evaluation of patient's breathing during sleep. 2. CPAP/BiPAP titration if sleep study confirms obstructive sleep apnea-hypopnea syndrome. 3. Preferable position during sleep on the side. 4. No driving if patient feels any sleepiness. Patient is aware of civil and criminal liability for unsafe driving. 5. Sleep hygiene with regular sleep time for at least 7.5-8 hours. 6. Watching and losing weight. Thank you very much for referring this patient for consultation. Sincerely, Nils Dunlap MD, PhD, FAASM. Diplomat of [place] [employer], Sleep Medicine Board by [place] [employer] [place] [employer] Payroll Lead of [facility] [place] cc: Soy Ross MD Past Medical History Past Medical History: Atrial Fibrillation, Asthma, Cancer, Hypertension, Prostate Disorder, Pulmonary Embolus (PE), Sleep Apnea/CPAP/BIPAP Additional Past Medical History / Comment(s): Liver disease,r/t former etoh, heroine use, POSSIBLE leaky valve, PE 2016, hxSKIN CANCER-BASAL CELL. BPH to have Bx , cpap. begining of essential tremors. History of Any Multi-Drug Resistant Organisms: MRSA Date of last positivie culture/infection: 2019 MDRO Source:: left foot Past Surgical History: Cardiac Ablation, Cholecystectomy, Hernia Repair Additional Past Surgical History / Comment(s): mesh, REMOVAL BASAL CELL SPOTS FROM HEAD AND BACK, CARDIOVERSION Past Anesthesia/Blood Transfusion Reactions: No Reported Reaction Past Psychological History: Anxiety, Depression Additional Psychological History / Comment(s): UNDER CONTROL AT THIS TIME Smoking Status: Former smoker Past Alcohol Use History: None Reported Additional Past Alcohol Use History / Comment(s): QUIT SMOKING OVER 30 YEARS AGO. HAS BEEN 1 YEAR ALCOHOL FREE Past Drug Use History: None Reported, Cocaine, Heroin, Methamphetamine Additional Drug Use History / Comment(s): HAS BEEN 4 YRS CLEAN FROM DRUG USE - Past Family History Father Family Medical History: COPD, Coronary Artery Disease (CAD), Hypertension Additional Family Medical History / Comment(s): Aortic leak/fixed. CABG.. aNGINA, aRTHRITIS TYPE UNKNOWN Brother(s) Family Medical History: Coronary Artery Disease (CAD) Additional Family Medical History / Comment(s): Angina, Arthritis TYPE UNKNOWN Medications and Allergies Home Medications Medication Instructions Recorded Confirmed Type Metoprolol Succinate (ER) [Toprol 50 mg PO BID 30 Days #60 tab 12/31/22 08/03/24 Rx XL] Albuterol Sulfate [Albuterol 2 puff INHALATION RT-Q4H PRN 11/14/23 07/09/24 History Sulfate Hfa] Empagliflozin [Jardiance] 10 mg PO QAM 01/20/24 08/03/24 History Rivaroxaban [Xarelto] 20 mg PO 1800 01/20/24 08/03/24 History Sacubitril/Valsartan [Entresto 49 2 each PO BID 05/26/24 08/03/24 History mg-51 mg Tablet] Spironolactone 25 mg PO QAM 05/26/24 07/09/24 History Unk Fish Oil 1 tab PO QAM 05/26/24 07/09/24 History Fluticasone/Umeclidin/Vilanter 1 puff INHALATION DAILY 07/07/24 07/09/24 History [Jeane Colonta 100-62.5-25] Allergies Allergy/AdvReac Type Severity Reaction Status Date / Time No Known Allergies Allergy Verified 05/26/24 13:19 Physical Exam Vitals: Vital Signs Temp Pulse Resp BP Pulse Ox 08/03/24 11:51 98 F 80 16 110/70 96 Sleep Note - Sleep Data ESS Total: 3 - Sleep Note Sleep Note: Temperature: 98 F Pulse Rate: 80 Respiratory Rate: 16 Blood Pressure: 110/70 SpO2: 96 Height: Weight: BMI: Neck Circumference: 16.2
== END ==
LOC: 3 N SLEEP 11:17
PROVIDERS: ATTEND Internal Medicine
DX: G47.33 Obstructive sleep apnea (adult) (pediatric) (principal); E66.9 Obesity, unspecified; Z68.31 Body mass index [BMI] 31.0-31.9, adult; Z86.79 Personal history of other diseases of the circulatory system; Z98.890 Other specified postprocedural states; Z86.59 Personal history of other mental and behavioral disorders; Z87.09 Personal history of other diseases of the respiratory system
CPT/HCPCS: 99211

== ENCOUNTER 2024-08-09 19:37 | Outpatient (CLI) | payer OTHER ==
--- NOTE | 2024-08-10 11:30 | P.PCN ---
Description of Procedure: POLYSOMNOGRAPHY REPORT PROCEDURE(S)/DATE(S): Polysomnography 08/09/2024 CLINICAL: Patient has been seen in the sleep center for evaluation of obstructive sleep apnea-hypopnea syndrome. Please see my consultation. Sleep study has been done for evaluation of patient breathing during the sleep. PROCEDURE: The standard montage for clinical polysomnography included the electroencephalogram, the electrooculogram, the mentalis surface electromyography and Lead II cardiography. The respiratory battery consisted of measurements of nasal/buccal air flow, pressure transducer measurements from nose, thoracic and/or abdominal effort and intercostal surface electromyography. Video monitoring has been done to check for any parasomnia events. Nocturnal oxyhemoglobin saturations were obtained by finger oximetry. Step-mora titration with positive airway pressure was utilized to control the respiratory events, if necessary. RESULTS: During the diagnostic sleep study sleep efficiency was decreased to 80.8%. Latency to sleep onset was normal at 14.5 min. Sleep architecture showed stage NI was short 2.6%, Delta sleep was absent 0%, REM sleep was increased to 36.2%. Respiratory channel showed 0 obstructive apneas, 0 mixed apneas, 0 central apneas, 78 hypopneas with lowest oxygen level 74%. Total apnea hypopnea index was 13.7 accounting for percent oxygen desaturation and 16.1 counting hypopneas with 3% oxygen desaturation. Heart rate was in the range between 65 and 70, average 68. EMG showed 14.7 periodic limb movements per hour with 0 micro-arousals per hour. IMPRESSIONS: 1. Obstructive sleep apnea hypopnea syndrome in mild to moderate range with very significant oxygen desaturation to 74% and oxygen level was below normal for 11 minutes. 2. Mild periodic limb movements have been documented. 3. History of atrial fibrillation, status post recent cardiac ablation. Please see other impressions from consultation PLAN: 1. The patient will have PAP titration for correction of respiratory abnormalities during the sleep. 2. Losing weight program. 3. Sleep hygiene with regular time in bed for at least 7-1/2 hours. 4. No driving if feeling sleepiness. 5. Please check iron profile including ferritin level. Low level of iron may increase the risk for periodic limb movements. Thank you very much for allowing me to participate in the management of your patient. Sincerely, Nils Dunlap MD, PhD, FAASM. Diplomat of [place] [employer], Sleep Medicine Board by [employer] Financial Analysis Advisor of [facility] [place] cc: Soy Ross MD
== END 2024-08-10 05:40 | disposition home or self-care (01) ==
LOC: 3 N SLEEP 19:37
PROVIDERS: ATTEND Internal Medicine
DX: G47.33 Obstructive sleep apnea (adult) (pediatric) (principal); G47.61 Periodic limb movement disorder; I48.91 Unspecified atrial fibrillation; Z98.890 Other specified postprocedural states; Z79.01 Long term (current) use of anticoagulants
CPT/HCPCS: 95810

== ENCOUNTER 2024-09-06 20:00 | Outpatient (CLI) | payer OTHER ==
--- NOTE | 2024-09-09 14:42 | P.PCN ---
Description of Procedure: CLINICAL: Titration with positive air pressure has been done for correction of respiratory abnormalities during sleep. DESCRIPTION OF PROCEDURE: The standard montage for clinical polysomnography included the electroencephalogram, the electrocardiogram, the mentalis surface electromyography and Lead II cardiography. The respiratory battery consisted of measurements of nasal /buccal air flow, pressure transducer measurements from the nose, thoracic and /or abdominal effort and intercostal surface electromyography. Video monitoring has been done to check for any parasomnia events. Nocturnal oxyhemoglobin saturations were obtained by finger oximetry. Step-mora titration with positive airway pressure was utilized to control respiratory events. Raw data of sleep recording has been reviewed and is adequate. RESULTS: Sleep efficiency was extremely short 56.3%. Latency to sleep onset was close to the border 25.5 minutes.]. Sleep architecture showed stage N1 was increased to 12.6%, Delta sleep was absent 0%, REM sleep was normal 24.2%. Heart rate was minimum 68 BPM, maximum 72 BPM, average 70 BPM. EMG showed 31.5 periodic limb movements per hour with 0.8 micriarousals per hour. PAP titration have been done with CPAP up to the pressure 8 cm H2O. The best results were at the pressure 7 cm H2O. Apnea hypopnea index reduced to 1.2, patient was at that pressure in non-REM sleep and NREM sleep. IMPRESSION: 1. Obstructive sleep apnea hypopnea syndrome on controle with PAP treatment. 2. Significant periodic limb movements have been documented. Please see other impressions from consultation. PLAN: 1. The patient will have treatment with positive air pressure equipment with the level of pressure AutoPap 5-10 cm H2O and should use it every night for the whole night. 2. Watching weight. 3. Sleep hygiene with regular time in bed for at least 8 hours. 4. No driving if feeling any sleepiness. 5. I will see the patient for follow up visit to explain the results of the test, recommendations, check compliance with treatment and make any necessary adjustment related to mask fitting, pressure and humidification. 6. Please check iron profile including ferritin level. Low level of iron may increase risk for periodic limb movements Thank you very much for allowing me to participate in the management of your pa tient. Sincerely, Nils Dunlap MD, PhD, FAASM Diplomat of [employer] [employer] Sleep Medicine Board of [place] [employer] [facility] [place] cc: Soy Ross MD
== END 2024-09-07 05:30 | disposition home or self-care (01) ==
LOC: 3 N SLEEP 20:00
PROVIDERS: ATTEND Internal Medicine
DX: G47.33 Obstructive sleep apnea (adult) (pediatric) (principal); G47.61 Periodic limb movement disorder; Z99.89 Dependence on other enabling machines and devices
CPT/HCPCS: 95811

== ENCOUNTER → 2024-10-26 | Outpatient (CLI) | payer OTHER ==
--- NOTE | 2024-10-26 11:16 | MR ---
MRI CERVICAL SPINE: CLINICAL HISTORY: M54.12, M47.24. Pain. TECHNIQUE: Multiplanar, multisequence imaging of the cervical spine is performed without IV contrast. COMPARISON: CT cervical spine November 06, 2023. FINDINGS: Sagittal images of the cervical spine show the craniocervical junction to appear within nor mal limits. Prominence of CSF in the posterior aspect of the posterior fossa is redemonstrated. Néstor elate clinically to determine need for further workup. The cervical and upper thoracic spinal cord is normal in course, caliber, and signal. Vertebral alignment is anatomic. The vertebral body heights are normal. There is moderate disc space narrowing and anterior spurring at C4-C5 level. There is m ild disc space narrowing and moderate to severe anterior spurring at C6-C7 level. There is heterogene ous Modic type I endplate change involving the inferior C6 endplate. There is osseous hemangioma at t he T1 level. Axial images at C2-C3 level shows uncovertebral degenerative change causing mild bilateral neural for aminal narrowing. Axial images at C3-C4 level shows tiny central disc protrusion minimally effacing anterior thecal sac and uncovertebral facet degenerative change more prominent on the right causing mild left and severe right-sided neural foraminal narrowing. Axial images at C4-C5 levels show posterior spur disc complex effacing the anterior thecal sac greate r on the left and causing mild to moderate right and severe left-sided neural foraminal narrowing. Axial images at C5-C6 level shows mild broad-based posterior disc protrusion effaces anterior thecal sac and causing mild bilateral neural foraminal narrowing. Axial images at C6 and C7 levels with broad-based posterior disc protrusion effacing the anterior the aston sac and causing mild to moderate right greater than left bilateral neural foraminal narrowing. Axial images at C7-T1 level appear within normal limits. IMPRESSION: Multilevel degenerative change of the cervical spine is present as detailed above. [facility], , 10/26/2024 11:13 AM
== END | disposition home or self-care (01) ==
LOC: RADMRIMAIN 09:33
PROVIDERS: ATTEND Orthopaedic Surgery
DX: M50.123 Cervical disc disorder at C6-C7 level with radiculopathy (principal); M47.23 Other spondylosis with radiculopathy, cervicothoracic region
CPT/HCPCS: 72141

== ENCOUNTER → 2024-11-05 | Outpatient (CLI) | payer OTHER ==
[2024-11-05 14:06] VITALS: BP 149/80; PULSE 74; RESP 18; TEMP 98.1
--- NOTE | 2024-11-05 14:33 | P.PROGSL ---
Subjective DATE: 11/05/2024 FOLLOW UP VISIT. Patient with obstructive sleep apnea hypopnea syndrome return to sleep center for follow-up visit. Recently patient had sleep study which documented obstructive sleep apnea hypopnea syndrome. Patient was initiated on PAP therapy and today is first visit after treatment was started. Patient was able to use PAP equipment every night for the whole night. The patient does not have significant problems with the mask, PAP pressure and humidification. [place] sleepiness scale is 3, which is normal. I checked information from PAP unit. PAP unit pressure 8-12, average 9.5 cm H2O. Usage is 93% and 80% for more then 4 hours, average 6 hours per night. Leak is 13.0 l/m, which is in acceptable range. Apnea Hypopnea Index is 0.4, which is normal. MEDICATIONS:, Please see below During physical exam: GENERAL: A pleasant patient without any distress. VITAL SIGNS: Please see below, weight 274.4 pounds. HEENT: PERRLA, EOMI.low position of soft palate, Mallapati 4 . NECK: Supple. No JVD. LUNGS: Clear to percussion and to auscultation. Good air exchange. No wheezing or rhonchi. HEART: S1, S2 regular. ABDOMEN: Soft and nontender.[] EXTREMITIES: No clubbing or cyanosis. 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 No focal deficit. Impressions: 1. Obstructive sleep apnea-hypopnea syndrome. Patient demonstrated great compliance with treatment, benefiting from treatment. 2. Atrial fibrillation, status post cardiac ablation. 3. Mild obesity. 4. History of asthma. 5. History of depression. 6. Status post cholecystectomy. Plan: 1. Continue using PAP equipment every night for the whole night. 2. To change air filter at least 1-2 times per month. 3. PAP unit should stay lower then position of the head. 4. Advised patient to remove all remaining water from humidifier canister daily and make it dry after each usage. Refill canister with fresh distilled water before each usage. 5. Sleep hygiene with regular time in bed for at least 8 hours. 6. Precautions related to driving. No driving if feel any sleepiness. 7. I will maintain prescription for PAP supplies including mask, tube, filters. 8. Follow up visit in 6 months or earlier if patient has any problems. 9. Watching and losing weight. Thank you very much for allowing me to participate in the management of your patient. Nils Dunlap MD, PhD, FAASM. Diplomat of [place] [employer], Sleep Medicine Board by [place]isher [employer] [facility] [place] [facility] [place] Objective - Vital Signs Vital Signs: Vital Signs Temp 98.1 F 11/05/24 14:02 Pulse 74 11/05/24 14:02 Resp 18 11/05/24 14:02 BP 149/80 11/05/24 14:02 Pulse Ox 98 11/05/24 14:02 FiO2 Intake & Output 11/04/24 11/05/24 11/05/24 18:59 06:59 18:59 Weight 124.398 kg Home Medications: Home Medications Medication Instructions Recorded Confirmed Type Metoprolol Succinate (ER) [Toprol 50 mg PO BID 30 Days #60 tab 12/31/22 08/03/24 Rx XL] Albuterol Sulfate [Albuterol 2 puff INHALATION RT-Q4H PRN 11/14/23 07/09/24 History Sulfate Hfa] Empagliflozin [Jardiance] 10 mg PO QAM 01/20/24 08/03/24 History Rivaroxaban [Xarelto] 20 mg PO 1800 01/20/24 08/03/24 History Sacubitril/Valsartan [Entresto 49 2 each PO BID 05/26/24 08/03/24 History mg-51 mg Tablet] Spironolactone 25 mg PO QAM 05/26/24 07/09/24 History Unk Fish Oil 1 tab PO QAM 05/26/24 07/09/24 History Fluticasone/Umeclidin/Vilanter 1 puff INHALATION DAILY 07/07/24 07/09/24 History [Trelegy Ellipta 100-62.5-25]
== END ==
LOC: 3 N SLEEP 13:52
PROVIDERS: ATTEND Internal Medicine
DX: G47.33 Obstructive sleep apnea (adult) (pediatric) (principal); E66.9 Obesity, unspecified; I48.91 Unspecified atrial fibrillation; Z86.79 Personal history of other diseases of the circulatory system; Z86.59 Personal history of other mental and behavioral disorders; Z90.49 Acquired absence of other specified parts of digestive tract; Z87.09 Personal history of other diseases of the respiratory system
CPT/HCPCS: 99212

== ENCOUNTER → 2024-12-23 | Outpatient (CLI) | payer OTHER | END | disposition home or self-care (01) | LOC: LABWHC1 10:53 | PROVIDERS: ATTEND Urology | DX: C61 Malignant neoplasm of prostate (principal) | CPT/HCPCS: 36415; 84153 ==